=== PATIENT | male | born 1955 | race Caucasian/White ===

== ENCOUNTER 2017-12-18 16:14 | Outpatient (CLI) | payer OTHER ==
--- NOTE | 2017-12-18 19:48 | MRI Report ---
EXAM: RIGHT KNEE MRI WITHOUT CONTRAST EXAM DATE: 12/18/2017 05:04 PM. CLINICAL HISTORY: Right knee pain. Medial joint line tenderness. 10 foot fall. COMPARISON: None. TECHNIQUE: Multiplanar, multisequence T1-weighted and fluid-sensitive sequences of the knee without c ontrast. Other: None. FINDINGS: Bones: There is moderate marrow edema affecting the anterior and medial aspect of the medial tibial c ondyle suggestive of a contusion. Articular Cartilage: There is moderate to severe thinning of the hyaline cartilage of the medial comp artment. There is mild lateral compartment cartilage thinning. There is mild thinning of the patellof emoral hyaline cartilage. Medial Meniscus: There is a full-thickness radial tear of the body of the medial meniscus with modera te medial extrusion. There is an oblique undersurface tear of the posterior horn. There is a horizont al tear of the anterior horn. Lateral Meniscus: The lateral meniscus is intact. Cruciate Ligaments: The anterior and posterior cruciate ligaments are intact. Collateral Ligaments: The medial collateral ligament has an undulating contour, with surrounding soft tissue edema, suggestive of a grade 1 sprain. The lateral collateral ligament appears normal. Tendons: The quadriceps and patellar tendon appear normal. The popliteus is intact. There is increase d T2 signal in the distal semimembranosus tendon suggestive of a partial thickness tear. Musculature: No edema or fatty atrophy. Other: There is a small joint effusion. No popliteal cyst. No loose bodies. The medial and lateral r etinacula are intact. The subcutaneous tissues and fat pads are unremarkable. IMPRESSION: 1. Radial tear of the body of the medial meniscus. Oblique undersurface tear of the posterior horn, a nd a horizontal tear of the anterior horn. Medial extrusion. 2. Grade 1 sprain of the medial collateral ligament. 3. Moderate medial compartment osteoarthritis. Marrow edema in the tibia may be secondary to a contus ion or be osteoarthritis. 4. Small joint effusion. 5. Partial thickness tear of the distal semimembranosus tendon. [facility] MUSCULOSKELET[facility] RADIOLOGY SECTION Referring Provider Line: [phone] SITE ID: [id number]
== END 2017-12-18 16:15 | disposition home or self-care (01) ==
LOC: DI 16:14
PROVIDERS: ATTEND Orthopaedic Surgery
DX: S83.241A Other tear of medial meniscus, current injury, right knee, initial encounter (principal); S83.411A Sprain of medial collateral ligament of right knee, initial encounter; M17.11 Unilateral primary osteoarthritis, right knee; M25.461 Effusion, right knee; S86.111A Strain of other muscle(s) and tendon(s) of posterior muscle group at lower leg level, right leg, initial encounter

== ENCOUNTER 2019-05-20 07:12 | Emergency (ER) | payer OTHER ==
[2019-05-20 07:20] VITALS: BP 141/78
--- NOTE | 2019-05-20 07:29 | ED Physician Documentation ---
PD HPI HEENT - Stated complaint Stated Complaint: EAR PX/STUFFY NOSE - Chief complaint Chief Complaint: Heent - History obtained from History obtained from: Patient - History of Present Illness Timing - onset: How many days ago (7) Timing - duration: Days (7) Timing - details: Gradual onset, Still present Pain level now: 7 Location: Right ear, Left ear, Sinuses, Nose. No: Throat Improves: Nothing Associated symptoms: Congestion. No: Fever, Rhinorrhea, Cough Recently seen: Not recently seen - Additional information Additional information: Is a 64-year-old man who presents with complaints for the past week he has had a stuffy nose, she is developing sinus pressure in the frontal region and a headache. He has bilateral ear pain that he rates it a 6-7 out of 10. No drainage from the ears. No sore throat. He is not blowing mucus out of his nose he says is just very stuffy. He has not been coughing and had no fever. Review of Systems Constitutional: denies: Fever Eyes: denies: Loss of vision Ears: denies: Ear pain Nose: reports: Congestion. denies: Rhinorrhea / runny nose Throat: denies: Sore throat Respiratory: denies: Dyspnea, Cough PD PAST MEDICAL HISTORY - Past Medical History Cardiovascular: Hypertension, High cholesterol Respiratory: None Endocrine/Autoimmune: None GI: GERD : None HEENT: None Psych: None Musculoskeletal: None Derm: None - Past Surgical History Past Surgical History: Yes General: Cholecystectomy - Present Medications Home Medications: Ambulatory Orders Medication Instructions Recorded Confirmed Gabapentin 300 mg PO DAILY 10/07/15 12/24/15 HYDROcod/ACETAM 5/325 [Vicodin 1 tab PO QID PRN 10/07/15 12/24/15 5/325] Lisinopril 10 mg PO DAILY 10/07/15 12/24/15 Methocarbamol [Robaxin] 500 mg PO DAILY 10/07/15 12/24/15 clonazePAM [Klonopin] 5 mg PO DAILY 10/07/15 12/24/15 Promethazine Supp [Phenergan Supp] 25 mg SC Q6H PRN #15 supp 12/23/15 12/24/15 Ondansetron Odt [Zofran] 4 mg TL Q6H PRN #10 tablet 12/24/15 Fluticasone [Flonase] 1 sprays EZRA BID #1 bottle 05/20/19 - Allergies Allergies/Adverse Reactions: Allergies Allergy/AdvReac Type Severity Reaction Status Date / Time Penicillins Allergy Rash Verified 05/20/19 07:19 erythromycin base AdvReac Nausea Verified 05/20/19 07:19 [From E-Mycin] - Social History Does the pt smoke?: No Smoking Status: Never smoker Does the pt drink ETOH?: No Does the pt have substance abuse?: No - Immunizations Immunizations are current?: Yes - POLST Patient has POLST: No PD ED PE NORMAL - Vitals Vital signs reviewed: Yes - General General: Alert and oriented X 3, No acute distress, Well developed/nourished - HEENT HEENT: Atraumatic, PERRL, EOMI, Ears normal (There is some white serous fluid with air bubbles behind the TMs bilaterally. No erythema or dullness and landmarks are identified.), Moist mucous membranes, Pharynx benign - Neck Neck: No adenopathy, Thyroid normal - Cardiac Cardiac: RRR, No murmur - Respiratory Respiratory: No respiratory distress, Clear bilaterally Results - Vitals Vitals: Vital Signs - 24 hr 05/20/19 07:18 Temperature 36.4 C L Heart Rate 63 Respiratory 14 Rate Blood Pressure 141/78 H O2 Saturation 97 Oxygen O2 Source Room air PD MEDICAL DECISION MAKING - ED course Complexity details: d/w patient (No indication for antibiotics. Most viruses over the last 10 to 14 days and this was discussed with him. Symptomatic treatment including Flonase nasal spray, Afrin for 2 days, Sudafed purchased through the pharmacy, steam, ibuprofen and consideration for sinus rinses. Follow-up if not improving in another week or he develops a fever) Departure - Departure Disposition: 01 Home, Self Care Clinical Impression: URI (upper respiratory infection) Qualifiers: URI type: unspecified viral URI Qualified Code(s): J06.9 - Acute upper respiratory infection, unspecified Condition: Good Instructions: ED Upper Resp Infec No Abx Tx [facility]] Prescriptions: Fluticasone [Flonase] 1 sprays EZRA BID #1 bottle Comments: Use Afrin nasal spray for the next 24 hours twice a day. Also start Flonase nasal spray 2 sprays in each nostril daily. Would recommend considering doing a sinus rinse or at least some steam to help open up the sinuses so things can drain. Ibuprofen as an anti-inflammatory and Sudafed can be purchased through the pharmacist but you have to sign for it. We will have to go to the counter if you want to take Sudafed. Make sure you are drinking lots of liquids. Follow-up if not improving in another week or if you develop a fever.
== END 2019-05-20 07:47 | disposition home or self-care (01) ==
LOC: ED 07:12
DX: J06.9 Acute upper respiratory infection, unspecified (principal); I10 Essential (primary) hypertension
CPT/HCPCS: 99282; 99284

== ENCOUNTER 2021-04-27 16:52 | Emergency (ER) | payer MEDICARE, OTHER ==
[2021-04-27 17:00] VITALS: BP 140/94
[2021-04-27] MEDS ORDERED: BUFFERED LIDOCAINE 10 ML SYRINGE SUBQ STA (17:09)
--- NOTE | 2021-04-27 17:32 | ED Physician Documentation ---
PD HPI UPPER EXT INJURY - Stated complaint Stated Complaint: RT FINGER LAC - Chief complaint Chief Complaint: Laceration - History obtained from History obtained from: Patient - History of Present Illness Location: Right, Finger (index) Type of injury: Laceration Where injury occurred: Home Timing - onset: Today Timing - duration: Hours Timing - details: Abrupt onset, Still present Improved by: Rest, Immobilization Worsened by: Moving, Palpating Associated symptoms: No: Weakness, Numbness, Tingling, Swelling, Discolored Contributing factors: No: Anticoagulated Similar symptoms before: Diagnosis (laceration) Recently seen: Not recently seen - Additonal information Additional information: Previously well right handed 66-year-old male was working on his van removing the cover from the back seat when he ran his finger under the line and he lacerated the volar surface of his index finger. He has been able to control bleeding with direct pressure he has no functional deficit and he is now presenting to the emergency department for suturing. Review of Systems Constitutional: denies: Fever Respiratory: denies: Cough GI: denies: Vomiting Skin: reports: Laceration (s) PD PAST MEDICAL HISTORY - Past Medical History Cardiovascular: Hypertension, High cholesterol Respiratory: None Endocrine/Autoimmune: None GI: GERD : None HEENT: None Psych: None Musculoskeletal: None Derm: None - Past Surgical History Past Surgical History: Yes General: Cholecystectomy - Present Medications Home Medications: Ambulatory Orders Medication Instructions Recorded Confirmed Gabapentin 300 mg PO DAILY 10/07/15 12/24/15 HYDROcod/ACETAM 5/325 [Vicodin 1 tab PO QID PRN 10/07/15 12/24/15 5/325] clonazePAM [Klonopin] 5 mg PO DAILY 10/07/15 12/24/15 lisinopriL [Lisinopril] 10 mg PO DAILY 10/07/15 12/24/15 methocarbamoL [Robaxin] 500 mg PO DAILY 10/07/15 12/24/15 Promethazine Supp [Phenergan Supp] 25 mg [place] Q6H PRN #15 supp 12/23/15 12/24/15 Ondansetron Odt [Zofran] 4 mg TL Q6H PRN #10 tablet 12/24/15 Fluticasone [Flonase] 1 sprays EZRA BID #1 bottle 05/20/19 - Allergies Allergies/Adverse Reactions: Allergies Allergy/AdvReac Type Severity Reaction Status Date / Time Penicillins Allergy Rash Verified 04/27/21 17:00 erythromycin base AdvReac Nausea Verified 04/27/21 17:00 [From E-Mycin] - Social History Does the pt smoke?: No Smoking Status: Never smoker Does the pt drink ETOH?: No Does the pt have substance abuse?: No - Immunizations Immunizations are current?: Yes - POLST Patient has POLST: No PD ED PE NORMAL - Vitals Vital signs reviewed: Yes (hypertensive ) - General General: Alert and oriented X 3, No acute distress, Well developed/nourished - HEENT HEENT: Atraumatic, PERRL, EOMI - Respiratory Respiratory: No respiratory distress - Derm Derm: Normal color, Warm and dry, No rash - Extremities Extremities: No deformity, No edema, Other (over the volar surface of the PIP joint of the right index finger there is a 2.5cm laceration that does not involve deeper structures. 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, No motor deficit, No sensory deficit, Normal speech Eye Opening: Spontaneous Motor: Obeys Commands Verbal: Oriented GCS Score: 15 - Psych Psych: Normal mood, Normal affect Results - Vitals Vitals: Vital Signs - 24 hr 04/27/21 16:54 Temperature 36.6 C Heart Rate 88 Respiratory 16 Rate Blood Pressure 140/94 H O2 Saturation 99 Oxygen O2 Source Room air Procedures - Laceration (location) right index Wound type: Curved, Flap, Into subcut fat Neurovascular status: Sensory intact, Motor intact, Vascular intact Tendon involvement: Tendon intact Anesthesia: Lidocaine 1%, With bicarb Wound preparation: Hibiclens, Irrigated copiously NS, Wound explored, To the base Skin layer closure: Nylon, Interrupted, Size #-0 - enter number ([id number]) Other: Patient tolerated well, No complications, Neurovascular intact, Dressing applied, Tetanus booster given PD MEDICAL DECISION MAKING - ED course Complexity details: considered differential, d/w patient ED course: 66-year-old male with a laceration to the volar surface of the index finger has sutures placed tolerates this well. He is updated on his tetanus. Departure - Departure Disposition: 01 Home, Self Care Clinical Impression: Laceration of index finger Qualifiers: Encounter type: initial encounter Damage to nail status: without damage Foreign body presence: without foreign body Laterality: right Qualified Code(s): S61.210A - Laceration without foreign body of right index finger without damage to nail, initial encounter Condition: Stable Instructions: ED Laceration Hand Follow-Up: Dustin Barrientos MD [Primary Care Provider] - Comments: Sutures should be removed in 7 to 10 days. Discharge Date/Time: 04/27/21 18:05
[2021-04-27] MEDS ORDERED: TETANUS/DIPHTHERIA/PERTUSSIS 0.5 ML SYRINGE IM ONE (17:33)
== END 2021-04-27 18:05 | disposition home or self-care (01) ==
LOC: ED 16:52
DX: S61.210A Laceration without foreign body of right index finger without damage to nail, initial encounter (principal); W26.8XXA Contact with other sharp object(s), not elsewhere classified, initial encounter; Y93.89 Activity, other specified; Y92.008 Other place in unspecified non-institutional (private) residence as the place of occurrence of the external cause; Z23 Encounter for immunization; I10 Essential (primary) hypertension
CPT/HCPCS: 12001; 90471; 99283

== ENCOUNTER 2021-09-21 09:42 | Outpatient (CLI) | payer MEDICARE, OTHER ==
--- NOTE | 2021-09-21 14:36 | XRAY Report ---
PROCEDURE: Knee 2 View LT INDICATIONS: L KNEE PX TECHNIQUE: 2 views of the left knee(s) were acquired. COMPARISON: None. FINDINGS: Bones: No fractures or dislocations. No suspicious bony lesions. Tricompartmental arthritic narrow ing is present. Patellar spur is present. Soft tissues: Minimal joint effusion. No suspicious soft tissue calcifications. IMPRESSION: No visualized acute fracture or dislocation. However, occult injury cannot be excluded. Recommend short interval imaging follow-up in 7-10 days as clinically indicated for additional evalua tion. Reviewed by: Mari Martinez MD on 09/21/2021 2:35 PM PDT Approved by: Mari Martinez MD on 09/21/2021 2:35 PM PDT Station ID: [id number]
== END 2021-09-21 23:59 | disposition home or self-care (01) ==
LOC: DI.N 09:42
PROVIDERS: ATTEND Family Medicine
DX: M25.562 Pain in left knee (principal)

== ENCOUNTER 2022-08-03 05:01 | Emergency (ER) | payer MEDICARE, OTHER ==
--- OUTSIDE RECORDS SUMMARY | 2022-08-03 05:19 | EXTERNAL MEDICAL SUMMARY RPT | Continuity of Care Document ---
:1955 Author Organization [facility] Address [address] [place] [address] Phone Care Team Providers Name Role Phone Unavailable Unavailable Unavailable Dustin Barrientos Unavailable Unavailable Karla Spotter EnpJaimie Unavailable Unavailable NurseJennifer Unavailable Unavailable Allergies No information. Encounters No information. Functional Status No information. Immunizations No information. Medications date description facility 2022-06-17 00:00 hydrocodone-acetaminophen All 2022-06-20 00:00 hydrocodone-acetaminophen All 2022-06-17 00:00 acyclovir All 2022-06-17 00:00 acyclovir All 2022-06-17 00:00 acyclovir All 2022-06-17 00:00 acyclovir All 2022-05-13 00:00 [facility] 2022-06-17 00:00 acyclovir All 2022-06-17 00:00 acyclovir All 2022-06-19 00:00 [facility] 2022-06-17 00:00 gabapentin All 2022-06-20 00:00 gabapentin All 2022-06-17 00:00 gabapentin All 2022-06-20 00:00 gabapentin All 2022-06-17 00:00 gabapentin All 2022-06-20 00:00 gabapentin All 2022-06-17 00:00 acyclovir All 2022-06-17 00:00 acyclovir All 2022-06-17 00:00 hydrocodone-acetaminophen All 2022-06-20 00:00 hydrocodone-acetaminophen All 2022-06-17 00:00 gabapentin All 2022-06-20 00:00 gabapentin All 2022-06-17 00:00 hydrocodone-acetaminophen All 2022-06-20 00:00 hydrocodone-acetaminophen All 2022-06-17 00:00 hydrocodone-acetaminophen All 2022-06-20 00:00 hydrocodone-acetaminophen All Problems date description facility 2022-06-17 00:00 Herpes simplex without mention of compl ication All 2022-06-17 00:00 Herpes simplex without mention of compl ication All 2022-06-17 00:00 Oral herpes simplex infection All 2022-06-17 00:00 Oral herpes simplex infection All 2022-06-17 00:00 Other herpesviral infection All 2022-06-17 00:00 Other herpesviral infection All 2022-06-19 13:05 Recurrent [facility] 2022-06-20 00:16 [facility] Procedures date description facility 2022-06-17 00:00 Visit Code Hold All 2022-06-17 00:00 Visit Code Hold All Results/Labs test date author facility value unit interpret ation Result panel 1 (unknown) (no date) (unknown) [facility] (no value) (units ([facility]own[facility] unknown) Result panel 2 (unknown) (no date) (unknown) (unknown) 1.12 ng/ml (unkn own) Result panel 3 (unknown) (no (unknown) (unknown) (no value) (units (unk nown) date) unknown) (unknown) (no (unknown) (unknown) 06/19/22 (units (unkno wn) date) unknown) (unknown) (no (unknown) (unknown) [id number] (units (unkno wn) date) unknown) (unknown) (no (unknown) (unknown) 227 (units (unkno wn) date) unknown) (unknown) (no (unknown) (unknown) Age/Sex: 67 / M (units (unknown) date) Date of Service: unknown) (unknown) (no (unknown) (unknown) Allergies (units (unkn own) date) unknown) (unknown) (no (unknown) (unknown) [facility] (units (unknown) date) Medicine unknown) (unknown) (no (unknown) (unknown) [place] (units ( unknown) date) [id number] unknown) (unknown) (no (unknown) (unknown) Anesthesia (units (unk nown) date) unknown) (unknown) (no (unknown) (unknown) Attending Dr: (units ( unknown) date) Lela Tam unknown) PHumphreyAAnmol (unknown) (no (unknown) (unknown) Brother (units (unknown) date) Cancer unknown) (unknown) (no (unknown) (unknown) Bunion of left (units (unknown) date) foot unknown) (unknown) (no (unknown) (unknown) Chicken pox (units (un known) date) unknown) (unknown) (no (unknown) (unknown) Chronic back pain (units (unknown) date) unknown) (unknown) (no (unknown) (unknown) Chronic knee pain (units (unknown) date) unknown) (unknown) (no (unknown) (unknown) Closed head (units (un known) date) injury unknown) (unknown) (no (unknown) (unknown) : 1955 (units (unknown) date) Acct:[id number] unknown) (unknown) (no (unknown) (unknown) Dept at (units (unkno wn) date) . unknown) (unknown) (no (unknown) (unknown) Documented By: (units (unknown) date) Lela Tam unknown) Robyn 06/19/22 1 (unknown) (no (unknown) (unknown) Draft (units (unkno wn) date) unknown) (unknown) (no (unknown) (unknown) Family History (units (unknown) date) (Reviewed 09/20/21 unknown) @ 08:05 by Lesia Payne DO) (unknown) (no (unknown) (unknown) Family Practice (units (unknown) date) Office Visit unknown) (unknown) (no (unknown) (unknown) Father History of (units (unknown) date) heart disease unknown) (unknown) (no (unknown) (unknown) Fractures (units (unkn own) date) unknown) (unknown) (no (unknown) (unknown) HTN (units (unkno wn) date) (hypertension) unknown) (unknown) (no (unknown) (unknown) Hearing loss (units (u nknown) date) unknown) (unknown) (no (unknown) (unknown) History of (units (unk nown) date) mandibular surgery unknown) (-1974) (unknown) (no (unknown) (unknown) Hx of (units (unkno wn) date) cholecystectomy unknown) (unknown) (no (unknown) (unknown) Hyperlipidemia (units (unknown) date) unknown) (unknown) (no (unknown) (unknown) Intake Note: (units (u nknown) date) unknown) (unknown) (no (unknown) (unknown) Intake performed (units (unknown) date) by: Efrain Herbert unknown) (unknown) (no (unknown) (unknown) Intake (units (unkno wn) date) unknown) (unknown) (no (unknown) (unknown) Intake- Clincial (units (unknown) date) Staff unknown) (unknown) (no (unknown) (unknown) Loc: [facility] (units (unkno wn) date) unknown) (unknown) (no (unknown) (unknown) Medical History (units (unknown) date) (Updated 10/05/21 unknown) @ 00:00 by ) (unknown) (no (unknown) (unknown) PFSH (units (unkno wn) date) unknown) (unknown) (no (unknown) (unknown) Patient: (units (unkno wn) date) Nikia Pablo Kiesha unknown) MR#: [id number] (unknown) (no (unknown) (unknown) Penicillins (units (un known) date) [PENICILLINS] unknown) Allergy (Unknown, Verified 09/28/21 15:22) (unknown) (no (unknown) (unknown) Pt presents with (units (unknown) date) a mouth full of unknown) canker sores for a week and a half. Has had (unknown) (no (unknown) (unknown) Reason For Visit (units (unknown) date) unknown) (unknown) (no (unknown) (unknown) Shoulder pain (units ( unknown) date) unknown) (unknown) (no (unknown) (unknown) Signed By: (units (unk nown) date) unknown) (unknown) (no (unknown) (unknown) Smoking Status: (units (unknown) date) Never smoker unknown) (unknown) (no (unknown) (unknown) Surgical History (units (unknown) date) (Reviewed 09/20/21 unknown) @ 08:05 by Lesia Payne DO) (unknown) (no (unknown) (unknown) This note may (units ( unknown) date) have been all or unknown) partially generated using voice recognition (unknown) (no (unknown) (unknown) Tinnitus (units (unkno wn) date) unknown) (unknown) (no (unknown) (unknown) Tobacco + (units (unkn own) date) Substance Use unknown) (unknown) (no (unknown) (unknown) Tobacco Status (units (unknown) date) unknown) (unknown) (no (unknown) (unknown) Unknown (units (unkno wn) date) unknown) (unknown) (no (unknown) (unknown) Visit Reasons: (units (unknown) date) Mouth full of unknown) canker sores (unknown) (no (unknown) (unknown) erythromycin base (units (unknown) date) Allergy (Verified unknown) 09/28/21 15:22) (unknown) (no (unknown) (unknown) have occurred. If (units (unknown) date) there are any unknown) questions, please contact the Medical Records (unknown) (no (unknown) (unknown) may occur. (units (unk nown) date) Occasional unknown) wrong-word or 'sound-alike' substitutions may have (unknown) (no (unknown) (unknown) occurred due to (units (unknown) date) the inherent unknown) limitations of voice recognition software. Please (unknown) (no (unknown) (unknown) read the note (units ( unknown) date) carefully and unknown) recognize, using context, where these substitutions (unknown) (no (unknown) (unknown) software. 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, certified adapted physical educator errors (unknown) (no (unknown) (unknown) them before but (units (unknown) date) not this bad. unknown) Result panel 4 (unknown) (no (unknown) (unknown) (no value) (units (unk nown) date) unknown) (unknown) (no (unknown) (unknown) 06/19/22 (units (unkno wn) date) unknown) (unknown) (no (unknown) (unknown) 06/19/22] (units (unkn own) date) unknown) (unknown) (no (unknown) (unknown) 12:29 (units (unkno wn) date) unknown) (unknown) (no (unknown) (unknown) [id number] (units (unkno wn) date) unknown) (unknown) (no (unknown) (unknown) 227 (units (unkno wn) date) unknown) (unknown) (no (unknown) (unknown) Age/Sex: 67 / M (units (unknown) date) Date of Service: unknown) (unknown) (no (unknown) (unknown) Allergies (units (unkn own) date) unknown) (unknown) (no (unknown) (unknown) [facility] (units (unknown) date) Medicine unknown) (unknown) (no (unknown) (unknown) [place] (units ( unknown) date) [id number] unknown) (unknown) (no (unknown) (unknown) Anesthesia (units (unk nown) date) unknown) (unknown) (no (unknown) (unknown) Attending Dr: (units ( unknown) date) Lela Tam unknown) Robyn (unknown) (no (unknown) (unknown) BMI 27.1 (units (unkno wn) date) unknown) (unknown) (no (unknown) (unknown) BP 122/74 (units (unkn own) date) unknown) (unknown) (no (unknown) (unknown) Blood Pressure (units (unknown) date) Location Lt unknown) brachial (unknown) (no (unknown) (unknown) Brother (units (unknown) date) Cancer unknown) (unknown) (no (unknown) (unknown) Bunion of left (units (unknown) date) foot unknown) (unknown) (no (unknown) (unknown) Chicken pox (units (un known) date) unknown) (unknown) (no (unknown) (unknown) Chronic back pain (units (unknown) date) unknown) (unknown) (no (unknown) (unknown) Chronic knee pain (units (unknown) date) unknown) (unknown) (no (unknown) (unknown) Closed head (units (un known) date) injury unknown) (unknown) (no (unknown) (unknown) Confirmed (units (unkn own) date) 06/19/22] unknown) (unknown) (no (unknown) (unknown) : 1955 (units (unknown) date) Acct:[id number] unknown) (unknown) (no (unknown) (unknown) Dept at (units (unkno wn) date) . unknown) (unknown) (no (unknown) (unknown) Documented By: (units (unknown) date) Lela Tam unknown) Robyn 06/19/22 1 (unknown) (no (unknown) (unknown) Draft (units (unkno wn) date) unknown) (unknown) (no (unknown) (unknown) Family History (units (unknown) date) (Reviewed 09/20/21 unknown) @ 08:05 by Lesia Payne DO) (unknown) (no (unknown) (unknown) Family Practice (units (unknown) date) Office Visit unknown) (unknown) (no (unknown) (unknown) Father History of (units (unknown) date) heart disease unknown) (unknown) (no (unknown) (unknown) Fractures (units (unkn own) date) unknown) (unknown) (no (unknown) (unknown) HTN (units (unkno wn) date) (hypertension) unknown) (unknown) (no (unknown) (unknown) Hearing loss (units (u nknown) date) unknown) (unknown) (no (unknown) (unknown) Height 6 ft (units (un known) date) unknown) (unknown) (no (unknown) (unknown) History of (units (unk nown) date) mandibular surgery unknown) () (unknown) (no (unknown) (unknown) Hx of (units (unkno wn) date) cholecystectomy unknown) (unknown) (no (unknown) (unknown) Hyperlipidemia (units (unknown) date) unknown) (unknown) (no (unknown) (unknown) Intake Note: (units (u nknown) date) unknown) (unknown) (no (unknown) (unknown) Intake performed (units (unknown) date) by: Efrain Herbert unknown) (unknown) (no (unknown) (unknown) Intake (units (unkno wn) date) unknown) (unknown) (no (unknown) (unknown) Intake- Clincial (units (unknown) date) Staff unknown) (unknown) (no (unknown) (unknown) Loc: [facility] (units (unkno wn) date) unknown) (unknown) (no (unknown) (unknown) Medical History (units (unknown) date) (Updated 10/05/21 unknown) @ 00:00 by ) (unknown) (no (unknown) (unknown) Medications (units (un known) date) unknown) (unknown) (no (unknown) (unknown) Oxygen Delivery (units (unknown) date) Method room air unknown) (unknown) (no (unknown) (unknown) PFSH (units (unkno wn) date) unknown) (unknown) (no (unknown) (unknown) Patient: (units (unkno wn) date) Nikia Pablo unknown) MR#: [id number] (unknown) (no (unknown) (unknown) Penicillins (units (un known) date) [PENICILLINS] unknown) Allergy (Unknown, Verified 06/19/22 12:29) (unknown) (no (unknown) (unknown) Position Sitting (units (unknown) date) unknown) (unknown) (no (unknown) (unknown) Pt presents with (units (unknown) date) a mouth full of unknown) canker sores for a week and a half. Has had (unknown) (no (unknown) (unknown) Pulse 56 L (units (unk nown) date) unknown) (unknown) (no (unknown) (unknown) Pulse Oximetry (units (unknown) date) (%) 99 unknown) (unknown) (no (unknown) (unknown) Pulse Source (units (u nknown) date) Monitor unknown) (unknown) (no (unknown) (unknown) Reason For Visit (units (unknown) date) unknown) (unknown) (no (unknown) (unknown) Respiration 14 (units (unknown) date) unknown) (unknown) (no (unknown) (unknown) Shoulder pain (units ( unknown) date) unknown) (unknown) (no (unknown) (unknown) Signed By: (units (unk nown) date) unknown) (unknown) (no (unknown) (unknown) Smoking Status: (units (unknown) date) Never smoker unknown) (unknown) (no (unknown) (unknown) Surgical History (units (unknown) date) (Reviewed 09/20/21 unknown) @ 08:05 by Lesia Payne DO) (unknown) (no (unknown) (unknown) Temp 97.6 F (units (un known) date) unknown) (unknown) (no (unknown) (unknown) Temp Source Skin (units (unknown) date) unknown) (unknown) (no (unknown) (unknown) This note may (units ( unknown) date) have been all or unknown) partially generated using voice recognition (unknown) (no (unknown) (unknown) Tinnitus (units (unkno wn) date) unknown) (unknown) (no (unknown) (unknown) Tobacco + (units (unkn own) date) Substance Use unknown) (unknown) (no (unknown) (unknown) Tobacco Status (units (unknown) date) unknown) (unknown) (no (unknown) (unknown) Unknown (units (unkno wn) date) unknown) (unknown) (no (unknown) (unknown) Visit Reasons: (units (unknown) date) Mouth full of unknown) canker sores (unknown) (no (unknown) (unknown) Vitals (units (unkno wn) date) unknown) (unknown) (no (unknown) (unknown) Weight 200 lb (units ( unknown) date) unknown) (unknown) (no (unknown) (unknown) acyclovir. States (units (unknown) date) it only made it unknown) worse. (unknown) (no (unknown) (unknown) atorvastatin 10 (units (unknown) date) mg tablet 10 mg PO unknown) DAILY #90 tabs 09/01/20 [Rx Confirmed (unknown) (no (unknown) (unknown) celecoxib 200 mg (units (unknown) date) capsule 200 mg PO unknown) DAILY #30 caps 05/13/22 [Rx Confirmed (unknown) (no (unknown) (unknown) erythromycin base (units (unknown) date) Allergy (Verified unknown) 06/19/22 12:29) (unknown) (no (unknown) (unknown) gabapentin 300 mg (units (unknown) date) capsule 300 mg PO unknown) BEDTIME #90 caps 12/20/21 [Rx Confirmed (unknown) (no (unknown) (unknown) have occurred. If (units (unknown) date) there are any unknown) questions, please contact the Medical Records (unknown) (no (unknown) (unknown) lisinopril 10 mg (units (unknown) date) tablet 10 mg PO unknown) DAILY #90 tabs 08/01/20 [Rx Confirmed 06/19/22] (unknown) (no (unknown) (unknown) loperamide 2 mg (units (unknown) date) tablet 2 mg PO QID unknown) PRN 05/15/20 [History Confirmed 06/19/22] (unknown) (no (unknown) (unknown) may occur. (units (unk nown) date) Occasional unknown) wrong-word or 'sound-alike' substitutions may have (unknown) (no (unknown) (unknown) occurred due to (units (unknown) date) the inherent unknown) limitations of voice recognition software. Please (unknown) (no (unknown) (unknown) omeprazole 20 mg (units (unknown) date) capsule,delayed unknown) release 20 mg PO DAILY #90 caps 08/01/20 [Rx (unknown) (no (unknown) (unknown) read the note (units ( unknown) date) carefully and unknown) recognize, using context, where these substitutions (unknown) (no (unknown) (unknown) software. 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, certified adapted physical educator errors (unknown) (no (unknown) (unknown) them before but (units (unknown) date) not this bad. Was unknown) seen at the [facility] in and given Result panel 5 (unknown) (no date) (unknown) (unknown) (no value) (units (un known) unknown) (unknown) (no date) (unknown) (unknown) (no value) (units 646 3-4 unknown) (unknown) (no date) (unknown) (unknown) (no value) (units (un known) unknown) (unknown) (no date) (unknown) (unknown) (no value) (units (un known) unknown) (unknown) (no date) (unknown) (unknown) (no value) (units (un known) unknown) (unknown) (no date) (unknown) (unknown) Final (units (unkn own) report unknown) (unknown) (no date) (unknown) (unknown) Final (units 85611 -5 report unknown) (unknown) (no date) (unknown) (unknown) Final (units 664-3 report unknown) (unknown) (no date) (unknown) (unknown) No virus (units (unkn own) isolated. unknown) (unknown) (no date) (unknown) (unknown) No virus (units 6584- 7 isolated. unknown) Result panel 6 (unknown) (no (unknown) (unknown) (no value) (units (unk nown) date) unknown) (unknown) (no (unknown) (unknown) (1) Aphthae, (units (u nknown) date) oral: unknown) (unknown) (no (unknown) (unknown) (2) Lesion of (units ( unknown) date) lip: unknown) (unknown) (no (unknown) (unknown) 0RF pain (units (unkno wn) date) unknown) (unknown) (no (unknown) (unknown) 06/19/22 1314 (units ( unknown) date) unknown) (unknown) (no (unknown) (unknown) 06/19/22 (units (unkno wn) date) unknown) (unknown) (no (unknown) (unknown) 06/19/22] (units (unkn own) date) unknown) (unknown) (no (unknown) (unknown) 12:29 (units (unkno wn) date) unknown) (unknown) (no (unknown) (unknown) [id number] (units (unkno wn) date) unknown) (unknown) (no (unknown) (unknown) 227 (units (unkno wn) date) unknown) (unknown) (no (unknown) (unknown) 3 sores present (units (unknown) date) 3-5mm in diameter unknown) that are very tender to touch with a whitish (unknown) (no (unknown) (unknown) 5 days with (units (un known) date) limited effect. unknown) Viral and bacterial culture today for further (unknown) (no (unknown) (unknown) 67-year-old male (units (unknown) date) presents with unknown) concern for canker sores that have been present (unknown) (no (unknown) (unknown) 67-year-old male (units (unknown) date) presents with unknown) concern for lip and tongue lesions 1 on the (unknown) (no (unknown) (unknown) ?they have never (units (unknown) date) been this bad?. unknown) Was seen at urgent care already and prescribed (unknown) (no (unknown) (unknown) Age/Sex: 67 / M (units (unknown) date) Date of Service: unknown) (unknown) (no (unknown) (unknown) All systems (units (un known) date) reviewed + are unknown) unremarkable except as noted in HPI and below (unknown) (no (unknown) (unknown) Allergies (units (unkn own) date) unknown) (unknown) (no (unknown) (unknown) [facility] (units (unknown) date) Medicine unknown) (unknown) (no (unknown) (unknown) [place], [place] (units ( unknown) date) [id number] unknown) (unknown) (no (unknown) (unknown) Anesthesia (units (unk nown) date) unknown) (unknown) (no (unknown) (unknown) Assessment + Plan (units (unknown) date) unknown) (unknown) (no (unknown) (unknown) Attending Dr: (units ( unknown) date) Lela Tam unknown) P.A-C (unknown) (no (unknown) (unknown) BMI 27.1 (units (unkno wn) date) unknown) (unknown) (no (unknown) (unknown) BP 122/74 (units (unkn own) date) unknown) (unknown) (no (unknown) (unknown) Blood Pressure (units (unknown) date) Location Lt unknown) brachial (unknown) (no (unknown) (unknown) Brother (units (unknown) date) Cancer unknown) (unknown) (no (unknown) (unknown) Bunion of left (units (unknown) date) foot unknown) (unknown) (no (unknown) (unknown) CARDIOVASCULAR: (units (unknown) date) Regular rate and unknown) rhythm without murmurs, gallops, or rubs. (unknown) (no (unknown) (unknown) Chicken pox (units (un known) date) unknown) (unknown) (no (unknown) (unknown) Chief Complaint (units (unknown) date) unknown) (unknown) (no (unknown) (unknown) Chief Complaint: (units (unknown) date) Canker sores unknown) (unknown) (no (unknown) (unknown) Chronic back pain (units (unknown) date) unknown) (unknown) (no (unknown) (unknown) Chronic knee pain (units (unknown) date) unknown) (unknown) (no (unknown) (unknown) Closed head (units (un known) date) injury unknown) (unknown) (no (unknown) (unknown) Confirmed (units (unkn own) date) 06/19/22] unknown) (unknown) (no (unknown) (unknown) Const (units (unkno wn) date) unknown) (unknown) (no (unknown) (unknown) : 1955 (units (unknown) date) Acct:[id number] unknown) (unknown) (no (unknown) (unknown) Dept at (units (unkno wn) date) . unknown) (unknown) (no (unknown) (unknown) Details: (units (unkno wn) date) unknown) (unknown) (no (unknown) (unknown) Documented By: (units (unknown) date) Lela Tam unknown) Robyn 06/19/22 1 (unknown) (no (unknown) (unknown) ENT: Nose without (units (unknown) date) bleeding, purulent unknown) drainage. The upper and lower lips have 2 (unknown) (no (unknown) (unknown) EXTREMITIES: No (units (unknown) date) edema or joint unknown) tenderness. (unknown) (no (unknown) (unknown) EYES: Pupils (units (u nknown) date) equal round and unknown) reactive. Extraocular motions intact. No scleral (unknown) (no (unknown) (unknown) Exam Narrative (units (unknown) date) unknown) (unknown) (no (unknown) (unknown) Exam Narrative: (units (unknown) date) unknown) (unknown) (no (unknown) (unknown) Exam (units (unkno wn) date) unknown) (unknown) (no (unknown) (unknown) Family History (units (unknown) date) (Reviewed 06/19/22 unknown) @ 13:08 by Lela Tam PA-C) (unknown) (no (unknown) (unknown) Family Practice (units (unknown) date) Office Visit unknown) (unknown) (no (unknown) (unknown) Father History of (units (unknown) date) heart disease unknown) (unknown) (no (unknown) (unknown) Fractures (units (unkn own) date) unknown) (unknown) (no (unknown) (unknown) GENERAL: 67 year (units (unknown) date) old patient unknown) appears stated age. Well-developed patient, in mild (unknown) (no (unknown) (unknown) HEAD: Atraumatic. (units (unknown) date) Normocephalic. unknown) (unknown) (no (unknown) (unknown) HPI (units (unkno wn) date) unknown) (unknown) (no (unknown) (unknown) HTN (units (unkno wn) date) (hypertension) unknown) (unknown) (no (unknown) (unknown) Hearing loss (units (u nknown) date) unknown) (unknown) (no (unknown) (unknown) Height 182.88 cm (units (unknown) date) unknown) (unknown) (no (unknown) (unknown) History of (units (unk nown) date) aphthous ulcers unknown) however this is ?worse than ever?. On acyclovir for (unknown) (no (unknown) (unknown) History of (units (unk nown) date) mandibular surgery unknown) (-1974) (unknown) (no (unknown) (unknown) Hx of (units (unkno wn) date) cholecystectomy unknown) (unknown) (no (unknown) (unknown) Hyperlipidemia (units (unknown) date) unknown) (unknown) (no (unknown) (unknown) Intake Note: (units (u nknown) date) unknown) (unknown) (no (unknown) (unknown) Intake performed (units (unknown) date) by: Efrain Herbert unknown) (unknown) (no (unknown) (unknown) Intake (units (unkno wn) date) unknown) (unknown) (no (unknown) (unknown) Intake- Clincial (units (unknown) date) Staff unknown) (unknown) (no (unknown) (unknown) Loc: [facility] (units (unkno wn) date) unknown) (unknown) (no (unknown) (unknown) Medical History (units (unknown) date) (Reviewed 06/19/22 unknown) @ 13:08 by Lela Tam PA-C) (unknown) (no (unknown) (unknown) Medications (units (un known) date) unknown) (unknown) (no (unknown) (unknown) Medications: (units (u nknown) date) unknown) (unknown) (no (unknown) (unknown) NECK: Trachea (units ( unknown) date) midline. Non unknown) tender (unknown) (no (unknown) (unknown) NEURO: AOx3. (units (u nknown) date) unknown) (unknown) (no (unknown) (unknown) New (units (unkno wn) date) unknown) (unknown) (no (unknown) (unknown) Onset: 06/09/22 (units (unknown) date) unknown) (unknown) (no (unknown) (unknown) Orders (units (unkno wn) date) unknown) (unknown) (no (unknown) (unknown) Orders: (units (unkno wn) date) unknown) (unknown) (no (unknown) (unknown) Otherwise the (units ( unknown) date) oropharynx and unknown) posterior oropharynx are without ulcers, or (unknown) (no (unknown) (unknown) Oxygen Delivery (units (unknown) date) Method room air unknown) (unknown) (no (unknown) (unknown) PFSH (units (unkno wn) date) unknown) (unknown) (no (unknown) (unknown) Patient: (units (unkno wn) date) Nikia Pablo D unknown) MR#: [id number] (unknown) (no (unknown) (unknown) Penicillins (units (un known) date) [PENICILLINS] unknown) Allergy (Unknown, Verified 06/19/22 12:29) (unknown) (no (unknown) (unknown) Plan (units (unkno wn) date) unknown) (unknown) (no (unknown) (unknown) Position Sitting (units (unknown) date) unknown) (unknown) (no (unknown) (unknown) Pt presents with (units (unknown) date) a mouth full of unknown) canker sores for a week and a half. Has had (unknown) (no (unknown) (unknown) Pulse 56 L (units (unk nown) date) unknown) (unknown) (no (unknown) (unknown) Pulse Oximetry (units (unknown) date) (%) 99 unknown) (unknown) (no (unknown) (unknown) Pulse Source (units (u nknown) date) Monitor unknown) (unknown) (no (unknown) (unknown) RESPIRATORY: Clear (units (unknown) date) to auscultation. unknown) Breath sounds equal bilaterally. No wheezes, (unknown) (no (unknown) (unknown) ROS (units (unkno wn) date) unknown) (unknown) (no (unknown) (unknown) Reason For Visit (units (unknown) date) unknown) (unknown) (no (unknown) (unknown) Respiration 14 (units (unknown) date) unknown) (unknown) (no (unknown) (unknown) SKIN: No rash or (units (unknown) date) erythema of unknown) visible areas (unknown) (no (unknown) (unknown) Shoulder pain (units ( unknown) date) unknown) (unknown) (no (unknown) (unknown) Signed By: (units (unk nown) date) <Electronically unknown) signed by Lela Tam> (unknown) (no (unknown) (unknown) Signed (units (unkno wn) date) unknown) (unknown) (no (unknown) (unknown) Smoking Status: (units (unknown) date) Never smoker unknown) (unknown) (no (unknown) (unknown) Surgical History (units (unknown) date) (Reviewed 06/19/22 unknown) @ 13:08 by Lela Tam PA-C) (unknown) (no (unknown) (unknown) TID PRN pain #100 (units (unknown) date) mL 06/19/22 [Rx unknown) Confirmed 06/19/22] (unknown) (no (unknown) (unknown) Temp 97.6 F (units (un known) date) unknown) (unknown) (no (unknown) (unknown) Temp Source Skin (units (unknown) date) unknown) (unknown) (no (unknown) (unknown) This note may (units ( unknown) date) have been all or unknown) partially generated using voice recognition (unknown) (no (unknown) (unknown) Tinnitus (units (unkno wn) date) unknown) (unknown) (no (unknown) (unknown) Tobacco + (units (unkn own) date) Substance Use unknown) (unknown) (no (unknown) (unknown) Tobacco Status (units (unknown) date) unknown) (unknown) (no (unknown) (unknown) Unknown (units (unkno wn) date) unknown) (unknown) (no (unknown) (unknown) Viral Culture (units ( unknown) date) Today K12.0 - unknown) Recurrent oral aphthae (unknown) (no (unknown) (unknown) Visit Reasons: (units (unknown) date) Mouth full of unknown) canker sores (unknown) (no (unknown) (unknown) Vitals (units (unkno wn) date) unknown) (unknown) (no (unknown) (unknown) Weight 90.718 kg (units (unknown) date) unknown) (unknown) (no (unknown) (unknown) Wound Culture and (units (unknown) date) Gram Stain Today unknown) K12.0 - Recurrent oral aphthae (unknown) (no (unknown) (unknown) [Rx Confirmed (units ( unknown) date) 06/19/22] unknown) (unknown) (no (unknown) (unknown) acyclovir has (units ( unknown) date) thus far not been unknown) effective. Return precautions provided, follow (unknown) (no (unknown) (unknown) acyclovir which (units (unknown) date) he has been taking unknown) for about 4 days and he feels it has not (unknown) (no (unknown) (unknown) acyclovir. States (units (unknown) date) it only made it unknown) worse. 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 Counseled unknown) the patient if his symptoms do not improve (unknown) (no (unknown) (unknown) any specific (units (u nknown) date) finding in which unknown) case this may be a matter of watching and waiting (unknown) (no (unknown) (unknown) aphthous appearing (units (unknown) date) erythematous ulcer unknown) on the tip of the tongue on the left side. (unknown) (no (unknown) (unknown) atorvastatin 10 (units (unknown) date) mg tablet 10 mg PO unknown) DAILY #90 tabs 09/01/20 [Rx Confirmed (unknown) (no (unknown) (unknown) better, but they (units (unknown) date) are still unknown) painful.? 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 Do (units (unknown) date) prescribe unknown) mupirocin today to be used topically on his lips as (unknown) (no (unknown) (unknown) dexamethasone 0.5 (units (unknown) date) mg (5 mL) PO TID unknown) 12 days 180 mL 0RF apthous ulcers (unknown) (no (unknown) (unknown) dexamethasone 0.5 (units (unknown) date) mg/5 mL oral unknown) elixir 0.5 mg (5 mL) PO TID apthous ulcers 12 (unknown) (no (unknown) (unknown) dexamethasone (units ( unknown) date) swish for unknown) inflammation and pain. Patient was very interested in (unknown) (no (unknown) (unknown) difficulty with (units (unknown) date) eating and unknown) drinking because of the pain he is using a straw (unknown) (no (unknown) (unknown) distress. (units (unkn own) date) unknown) (unknown) (no (unknown) (unknown) erythromycin base (units (unknown) date) Allergy (Verified unknown) 06/19/22 12:29) (unknown) (no (unknown) (unknown) evaluation (units (unk nown) date) particularly of unknown) lip which may be more consistent with bacterial (unknown) (no (unknown) (unknown) for about a week (units (unknown) date) and a half. He unknown) states that there on his lips and also on the (unknown) (no (unknown) (unknown) gabapentin 300 mg (units (unknown) date) capsule 300 mg PO unknown) BEDTIME #90 caps 12/20/21 [Rx Confirmed (unknown) (no (unknown) (unknown) getting fluids (units (unknown) date) down. Denies a unknown) rash anywhere else on his body. (unknown) (no (unknown) (unknown) have occurred. If (units (unknown) date) there are any unknown) questions, please contact the Medical Records (unknown) (no (unknown) (unknown) icterus. No (units (un known) date) injection or unknown) drainage. (unknown) (no (unknown) (unknown) lesions. Throat (units (unknown) date) without erythema, unknown) tonsillar hypertrophy or exudate. Airway (unknown) (no (unknown) (unknown) lidocaine HCl 2 % (units (unknown) date) mucosal solution unknown) (Lidocaine Viscous) 1 applic mucous membrane (unknown) (no (unknown) (unknown) lidocaine HCl 2% (units (unknown) date) (Lidocaine unknown) Viscous) 1 applic mucous membrane TID PRN 100 mL (unknown) (no (unknown) (unknown) lisinopril 10 mg (units (unknown) date) tablet 10 mg PO unknown) DAILY #90 tabs 08/01/20 [Rx Confirmed 06/19/22] (unknown) (no (unknown) (unknown) loperamide 2 mg (units (unknown) date) tablet 2 mg PO QID unknown) PRN 05/15/20 [History Confirmed 06/19/22] (unknown) (no (unknown) (unknown) may occur. (units (unk nown) date) Occasional unknown) wrong-word or 'sound-alike' substitutions may have (unknown) (no (unknown) (unknown) mouthwash today (units (unknown) date) in clinic for unknown) symptomatic control. Discussed options for (unknown) (no (unknown) (unknown) mupirocin 2 % (units ( unknown) date) topical ointment 1 unknown) applic topical TID 12 days #15 grams 06/19/22 (unknown) (no (unknown) (unknown) mupirocin 2% 1 (units (unknown) date) applic topical TID unknown) 12 days 15 grams 0RF (unknown) (no (unknown) (unknown) occurred due to (units (unknown) date) the inherent unknown) limitations of voice recognition software. Please (unknown) (no (unknown) (unknown) omeprazole 20 mg (units (unknown) date) capsule,delayed unknown) release 20 mg PO DAILY #90 caps 08/01/20 [Rx (unknown) (no (unknown) (unknown) or worsen that he (units (unknown) date) may need to see a unknown) hearing and speech assistant or a (unknown) (no (unknown) (unknown) outpatient (units (unk nown) date) management and unknown) prescription for viscous lidocaine as well as a (unknown) (no (unknown) (unknown) pain. Denies any (units (unknown) date) other complaints unknown) or concerns he does state he has been having (unknown) (no (unknown) (unknown) patent. (units (unkno wn) date) unknown) (unknown) (no (unknown) (unknown) rales, or (units (unkn own) date) rhonchi. unknown) (unknown) (no (unknown) (unknown) rather than (units (un known) date) viral. Tongue does unknown) appear to have an aphthous ulcer. Magic (unknown) (no (unknown) (unknown) read the note (units ( unknown) date) carefully and unknown) recognize, using context, where these substitutions (unknown) (no (unknown) (unknown) relieved his (units (u nknown) date) symptoms at all. unknown) States ?they look like they are getting a little (unknown) (no (unknown) (unknown) right. corners of (units (unknown) date) the mouth are unknown) spared. There is a small approximately 2 mm (unknown) (no (unknown) (unknown) software. 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 And that the swabs may not return with (unknown) (no (unknown) (unknown) them before but (units (unknown) date) not this bad. Was unknown) seen at the [facility] in and given (unknown) (no (unknown) (unknown) them in the past (units (unknown) date) but it has been unknown) over a year since he is had them. He states (unknown) (no (unknown) (unknown) tip of his (units (unk nown) date) tongue. He is not unknown) had them anywhere else in his mouth. He has had (unknown) (no (unknown) (unknown) tongue and (units (unk nown) date) multiple on the unknown) lips upper and lower present for a week and a half. (unknown) (no (unknown) (unknown) up plan (units (unkno wn) date) discussed, all unknown) questions answered. (unknown) (no (unknown) (unknown) yellow material (units (unknown) date) present and some unknown) scabbing around them, both located on the Result panel 7 (unknown) (no date) (unknown) (unknown) COMMENT (units (unkn own) unknown) (unknown) (no date) (unknown) (unknown) COMMENT (units (unkn own) unknown) Result panel 8 (unknown) (no date) (unknown) (unknown) COMMENT (units (unkn own) unknown) (unknown) (no date) (unknown) (unknown) COMMENT (units (unkn own) unknown) Result panel 9 (unknown) (no date) (unknown) (unknown) (no value) (units (un known) unknown) (unknown) (no date) (unknown) (unknown) [address], unknown) [place], [place] [id number] (unknown) (no date) (unknown) (unknown) Comment (units (unkn own) unknown) (unknown) (no date) (unknown) (unknown) Reordering Clerk: (units (unknown) Marybel Hernandez unknown) , Phone: [phone] (unknown) (no date) (unknown) (unknown) No virus (units (unkn own) isolated at 24 unknown) hours. Next report to follow (unknown) (no date) (unknown) (unknown) Performed at: (units (unknown) [facility] unknown) [place] (unknown) (no date) (unknown) (unknown) Preliminary (units (u nknown) Report: unknown) (unknown) (no date) (unknown) (unknown) Preliminary (units (u nknown) Report: unknown) (unknown) (no date) (unknown) (unknown) after 4 days. (units (unknown) unknown) Result panel 10 (unknown) (no date) (unknown) (unknown) (no value) (units (un known) unknown) (unknown) (no date) (unknown) (unknown) [address], unknown) [place], [place] [phone] (unknown) (no date) (unknown) (unknown) 7 days. (units (unkn own) unknown) (unknown) (no date) (unknown) (unknown) Comment (units (unkn own) unknown) (unknown) (no date) (unknown) (unknown) Reordering Clerk: (units (unknown) Marybel Hernandez unknown) , Phone: [phone] (unknown) (no date) (unknown) (unknown) No virus (units (unkn own) isolated at 24 unknown) hours. Next report to follow (unknown) (no date) (unknown) (unknown) No virus (units (unkn own) isolated at 4 unknown) days. Next report to follow after (unknown) (no date) (unknown) (unknown) Performed at: (units (unknown) [facility] unknown) [place] (unknown) (no date) (unknown) (unknown) Preliminary (units (u nknown) Report: unknown) (unknown) (no date) (unknown) (unknown) Preliminary (units (u nknown) Report: unknown) (unknown) (no date) (unknown) (unknown) after 4 days. (units (unknown) unknown) Result panel 11 (unknown) (no date) (unknown) (unknown) (no value) (units (un known) unknown) (unknown) (no date) (unknown) (unknown) [address], unknown) [place], [place] [phone] (unknown) (no date) (unknown) (unknown) 7 days. (units (unkn own) unknown) (unknown) (no date) (unknown) (unknown) Comment (units (unkn own) unknown) (unknown) (no date) (unknown) (unknown) Reordering Clerk: (units (unknown) Marybel Hernandez unknown) , Phone: [phone] (unknown) (no date) (unknown) (unknown) No virus (units (unkn own) isolated at 24 unknown) hours. Next report to follow (unknown) (no date) (unknown) (unknown) No virus (units (unkn own) isolated at 4 unknown) days. Next report to follow after (unknown) (no date) (unknown) (unknown) No virus (units (unkn own) isolated. unknown) (unknown) (no date) (unknown) (unknown) Performed at: (units (unknown) [facility] unknown) [place] (unknown) (no date) (unknown) (unknown) Preliminary (units (u nknown) Report: unknown) (unknown) (no date) (unknown) (unknown) Preliminary (units (u nknown) Report: unknown) (unknown) (no date) (unknown) (unknown) after 4 days. (units (unknown) unknown) Social History date description facility 2022-06-19 00:00 Never smoked tobacco ([facility] Vital Signs date measurement value units 2022-06-17 00:00 BMI 28.01 kg/m2 2022-06-17 00:00 BP_diastolic 80 mmHg 2022-06-17 00:00 BP_systolic 129 mmHg 2022-06-17 00:00 heart_rate 63 /min 2022-06-17 00:00 height_metric 182.88 cm 2022-06-17 00:00 height_standard 72 in 2022-06-17 00:00 respiration_rate 16 /min 2022-06-17 00:00 temperature_metric 36.67 C 2022-06-17 00:00 temperature_standard 98 F 2022-06-17 00:00 weight_metric 93.35 kg 2022-06-17 00:00 weight_standard 205.8 lb 2022-06-19 00:00 BMI 27.1 kg/m2 2022-06-19 00:00 BP_diastolic 74 mmHg 2022-06-19 00:00 BP_systolic 122 mmHg 2022-06-19 00:00 heart_rate 56 /min 2022-06-19 00:00 height_metric 182.88 cm 2022-06-19 00:00 height_standard 72 in 2022-06-19 00:00 o2_saturation 99 % 2022-06-19 00:00 respiration_rate 14 /min 2022-06-19 00:00 temperature_metric 36.44 C 2022-06-19 00:00 temperature_standard 97.6 F 2022-06-19 00:00 weight_metric 90.71 kg 2022-06-19 00:00 weight_standard 199.98 lb
[2022-08-03 05:40] LABS: BASOPHILS # (AUTO) 0.1 10^3/uL (0.0-0.1); BASOPHILS % (AUTO) 0.3 %; EOSINOPHILS # (AUTO) 0.3 10^3/uL (0.0-0.7); EOSINOPHILS % (AUTO) 2.3 %; HCT - HEMATOCRIT 43.9 % (42.0-52.0); HGB - HEMOGLOBIN 15.3 g/dL (14.0-18.0); LYMPHOCYTES # (AUTO) 3.9 10^3/uL (1.5-3.5); LYMPHOCYTES % (AUTO) 27.1 %; MEAN CORPUSCULAR HEMOGLOBIN 30.8 pg (27.0-31.0); MEAN CORPUSCULAR HGB CONC 34.9 g/dL (32.0-36.0); MEAN CORPUSCULAR VOLUME 88.5 fL (80.0-94.0); MEAN PLATELET VOLUME 11.5 fL (7.4-11.4); MONOCYTES # (AUTO) 1.1 10^3/uL (0.0-1.0); MONOCYTES % (AUTO) 7.5 %; NEUTROPHILS # (AUTO) 8.9 10^3/uL (1.5-6.6); NEUTROPHILS % (AUTO) 62.5 %; PLT - PLATELET COUNT 207 10^3/uL (130-450); RED BLOOD COUNT 4.96 10^6/uL (4.70-6.10); RED CELL DISTRIBUTION WIDTH 12.5 % (12.0-15.0); WHITE BLOOD COUNT 14.3 x10^3/uL (4.8-10.8)
[2022-08-03] MEDS ORDERED: AMOX/CLAV 875 MG/125 MG TABLET PO STA (05:47)
[2022-08-03 05:51] LABS: ALBUMIN 3.9 g/dL (3.2-5.5); ALBUMIN/GLOBULIN RATIO 1.2 (1.0-2.2); BILIRUBIN,TOTAL 1.2 mg/dL (0.2-1.0); CALCIUM 9.4 mg/dL (8.5-10.3); CREATININE 1.3 mg/dL (0.6-1.2); POTASSIUM 3.8 mmol/L (3.5-5.0); TOTAL PROTEIN 7.2 g/dL (6.7-8.2)
[2022-08-03] MEDS ORDERED: ONDANSETRON 4 MG/2 ML VIAL IVP STA (05:56)
[2022-08-03] MEDS ORDERED: SODIUM CHLORIDE 0.9% 1,000 ML IV STA (05:56)
--- NOTE | 2022-08-03 05:56 | ED Physician Documentation ---
History of Present Illness - Stated complaint Stated Complaint: CHEST PX/SOA - Chief complaint Chief Complaint: Cardiac - History obtained from History obtained from: Patient - Additonal information Additional information: 67-year-old man presents with nasal congestion and cough productive of green sputum for the past couple of days, now with left-sided chest pain and shortness of breath since yesterday as well as R ear pain. Patient endorses fever/chills and decreased appetite/malaise. Review of Systems Constitutional: reports: Fever, Chills, Myalgias, Fatigue Ears: reports: Ear pain Nose: reports: Rhinorrhea / runny nose, Congestion Throat: reports: Sore throat Cardiac: reports: Chest pain / pressure Respiratory: reports: Dyspnea, Cough PD PAST MEDICAL HISTORY - Past Medical History Cardiovascular: Hypertension, High cholesterol Respiratory: None Endocrine/Autoimmune: None GI: GERD : None HEENT: None Psych: None Musculoskeletal: None Derm: None - Past Surgical History Past Surgical History: Yes General: Cholecystectomy - Present Medications Home Medications: Ambulatory Orders Medication Instructions Recorded Confirmed Gabapentin 300 mg PO DAILY 10/07/15 12/24/15 HYDROcod/ACETAM 5/325 [Vicodin 1 tab PO QID PRN 10/07/15 12/24/15 5/325] clonazePAM [Klonopin] 5 mg PO DAILY 10/07/15 12/24/15 lisinopriL [Lisinopril] 10 mg PO DAILY 10/07/15 12/24/15 methocarbamoL [Robaxin] 500 mg PO DAILY 10/07/15 12/24/15 Promethazine Supp [Phenergan Supp] 25 mg MD Q6H PRN #15 supp 12/23/15 12/24/15 Ondansetron Odt [Zofran] 4 mg TL Q6H PRN #10 tablet 12/24/15 Fluticasone [Flonase] 1 sprays EZRA BID #1 bottle 05/20/19 Amox/Clav 875/125 [Augmentin 1 tablet PO Q12H 7 Days #14 tablet 08/03/22 875/125 Tab] - Allergies Allergies/Adverse Reactions: Allergies Allergy/AdvReac Type Severity Reaction Status Date / Time Penicillins Allergy Rash Verified 08/03/22 05:19 erythromycin base AdvReac Nausea Verified 08/03/22 05:19 [From E-Mycin] - Social History Does the pt smoke?: No Smoking Status: Never smoker Does the pt drink ETOH?: No Does the pt have substance abuse?: No - Immunizations Immunizations are current?: Yes - POLST Patient has POLST: No PD ED PE NORMAL - Vitals Vital signs reviewed: Yes - General General: Alert and oriented X 3, No acute distress, Well developed/nourished - HEENT HEENT: Atraumatic, PERRL, EOMI, Other (R otitis media) - Neck Neck: Supple, no meningeal sign - Cardiac Cardiac: RRR - Respiratory Respiratory: No respiratory distress, Clear bilaterally Results - Vitals Vitals: Vital Signs - 24 hr 08/03/22 08/03/22 08/03/22 05:05 05:20 06:08 Temperature 36.1 C L Heart Rate 93 65 Respiratory 18 18 18 Rate Blood Pressure 122/73 126/80 O2 Saturation 97 97 Oxygen O2 Source Room air - EKG (time done) 0513 Rate: Rate (enter#) (80) Rhythm: NSR [place]: Normal Intervals: Normal MD QRS: Normal Ischemia: Normal ST segments - Labs Labs: Laboratory Tests 08/03/22 08/03/22 08/03/22 05:17 05:17 05:17 WBC 14.3 H RBC 4.96 Hgb 15.3 Hct 43.9 MCV 88.5 MCH 30.8 MCHC 34.9 RDW 12.5 Plt Count 207 MPV 11.5 H Neut # (Auto) 8.9 H Lymph # (Auto) 3.9 H [place] # (Auto) 1.1 H Eos # (Auto) 0.3 Baso # (Auto) 0.1 Absolute Nucleated RBC 0.00 Nucleated RBC % 0.0 Sodium 141 Potassium 3.8 Chloride 107 Carbon Dioxide 21 Anion Gap 13.0 BUN 18 Creatinine 1.3 H Estimated GFR (MDRD) 55 L Glucose 144 H Calcium 9.4 Total Bilirubin 1.2 H AST 18 ALT 15 Alkaline Phosphatase 80 Troponin I High Sens 5.6 Total Protein 7.2 Albumin 3.9 Globulin 3.3 Albumin/Globulin Ratio 1.2 Lipase 27 Nasal Adenovirus (PCR) Nasal B. parapertussis DNA (PCR) Nasal Coronavir 229E PCR Nasal Coronavir HKU1 PCR Nasal Coronavir NL63 PCR Nasal Coronavir OC43 PCR Nasal Enterovir/Rhinovir PCR Nasal Influenza B PCR Nasal Influenza A PCR Nasal Parainfluen 1 PCR Nasal Parainfluen 2 PCR Nasal Parainfluen 3 PCR Nasal Parainfluen 4 PCR Nasal RSV (PCR) Nasal B.pertussis DNA PCR Nasal C.pneumoniae (PCR) Ezra Human Metapneumo PCR Nasal M.pneumoniae (PCR) Nasal SARS-CoV-2 (PCR) 08/03/22 05:55 WBC RBC Hgb Hct MCV MCH MCHC RDW Plt Count MPV Neut # (Auto) Lymph # (Auto) [place] # (Auto) Eos # (Auto) Baso # (Auto) Absolute Nucleated RBC Nucleated RBC % Sodium Potassium Chloride Carbon Dioxide Anion Gap BUN Creatinine Estimated GFR (MDRD) Glucose Calcium Total Bilirubin AST ALT Alkaline Phosphatase Troponin I High Sens Total Protein Albumin Globulin Albumin/Globulin Ratio Lipase Nasal Adenovirus (PCR) NOT DETECTED Nasal B. parapertussis DNA (PCR) NOT DETECTED Nasal Coronavir 229E PCR NOT DETECTED Nasal Coronavir HKU1 PCR NOT DETECTED Nasal Coronavir NL63 PCR NOT DETECTED Nasal Coronavir OC43 PCR NOT DETECTED Nasal Enterovir/Rhinovir PCR NOT DETECTED Nasal Influenza B PCR NOT DETECTED Nasal Influenza A PCR NOT DETECTED Nasal Parainfluen 1 PCR NOT DETECTED Nasal Parainfluen 2 PCR NOT DETECTED Nasal Parainfluen 3 PCR NOT DETECTED Nasal Parainfluen 4 PCR NOT DETECTED Nasal RSV (PCR) NOT DETECTED Nasal B.pertussis DNA PCR NOT DETECTED Nasal C.pneumoniae (PCR) NOT DETECTED Ezra Human Metapneumo PCR NOT DETECTED Nasal M.pneumoniae (PCR) NOT DETECTED Nasal SARS-CoV-2 (PCR) NOT DETECTED PD Medical Decision Making - ED course ED course: 67-year-old man presents with nasal congestion and cough productive of green sputum for the past couple of days, now with left-sided chest pain and shortness of breath since yesterday as well as R ear pain. Patient endorses fever/chills and decreased appetite/malaise. 67-year-old man p/w URI and R otitis media. CBC, abdominal panel,trop, ekg and chest xray ordered. Labwork was remarkable for leukocytosis with WBC 14.3 suggesting infection c/w otitis detected on exam as well as URI symptoms. CXR with likely viral pattern c/w URI. troponin negative, and symptoms are atypical for ACS. EKG NSR without acute ischemic changes. d/w patient and provided first dose of antibiotics here in the ED. rx sent to pharmacy, return precautions given. plan to f/u pcp. Departure - Departure Disposition: 01 Home, Self Care Clinical Impression: URI (upper respiratory infection), Otitis media Condition: Stable Instructions: ED Otitis Media Acute Adult Prescriptions: Amox/Clav 875/125 [Augmentin 875/125 Tab] 1 tablet PO Q12H 7 Days #14 tablet Comments: You were seen in the emergency department for an upper respiratory infection and right sided ear infection. Please take your antibiotics as prescribed (sent electronically to [facility]) and return to the emergency department for new or worsening symptoms or other concerns. Follow-up with your primary care provider
[2022-08-03 06:53] LABS: B. PARAPERTUSSIS- RESP PCR PAN NOT DETECTED; B. PERTUSSIS- RESP PCR PANEL NOT DETECTED; C. PNEUMONIAE- RESP PCR PANEL NOT DETECTED; CORONAVIRUS 229E-RESP PCR NOT DETECTED; CORONAVIRUS HKU1-RESP PCR NOT DETECTED; CORONAVIRUS NL63-RESP PCR NOT DETECTED; CORONAVIRUS OC43-RESP PCR NOT DETECTED; HUMAN METAPNEUMOVIRUS NOT DETECTED; INFLUENZA A- RESP PCR PANEL NOT DETECTED; INFLUENZA B - RESP PCR PANEL NOT DETECTED; M. PNEUMONIAE- RESP PCR PANEL NOT DETECTED; PARAINFLUENZA VIRUS 1 NOT DETECTED; PARAINFLUENZA VIRUS 2 NOT DETECTED; PARAINFLUENZA VIRUS 3 NOT DETECTED; PARAINFLUENZA VIRUS 4 NOT DETECTED; RHINOVIRUS/ENTEROVIRUS NOT DETECTED; RSV- RESP PCR PANEL NOT DETECTED; SARS-CoV-2 -RESP PCR PANEL NOT DETECTED
[2022-08-03 07:28] VITALS: BP 131/85
--- NOTE | 2022-08-03 10:39 | XRAY Report ---
PROCEDURE: Chest 1 View X-Ray INDICATIONS: Chest Pain TECHNIQUE: One view of the chest was acquired. COMPARISON: Chest x-ray 05/31/2013. FINDINGS: Surgical changes and devices: None. Lungs and pleura: Slight appearance of peribronchial wall thickening on the right. Mediastinum: Mediastinal contours appear normal. Heart size is normal. Bones and chest wall: No suspicious bony lesions. Overlying soft tissues appear unremarkable. IMPRESSION: Mild peribronchial wall thickening suggestive of infection or inflammation. Reviewed by: Mari Martinez MD on 08/03/2022 10:[address] [facility] Approved by: Mari Martinez MD on 08/03/2022 10:[address] [facility] Station ID: [id number]
== END 2022-08-03 07:27 | disposition home or self-care (01) ==
LOC: ED 05:01
DX: J06.9 Acute upper respiratory infection, unspecified (principal); H66.91 Otitis media, unspecified, right ear; Z20.822 Contact with and (suspected) exposure to COVID-19
CPT/HCPCS: 36415; 71045; 80053; 83690; 84484; 85025; 87633; 93005; 96361; 96374; 99284; A9270

== ENCOUNTER 2022-09-12 02:58 | Emergency (ER) | payer MEDICARE, OTHER ==
--- NOTE | 2022-09-12 03:18 | ED Physician Documentation ---
PD HPI CHEST PAIN - Stated complaint Stated Complaint: CHEST PX/NAUSEA - Chief complaint Chief Complaint: Cardiac - History obtained from History obtained from: Patient - History of Present Illness Timing - onset: How many days ago (has had some congestion and cough for about a week, that has increased the past 1-2 days with worse cough leading to nausea and some vomiting of phlegm, chest tightness with breathing, and left chest pain to left arm with coughing.) Timing - onset during: Rest Timing - duration: Days Timing - details: Gradual onset, Still present Quality: Tightness, Sharp Location: Left chest Radiation: Left upper extremity Worsened by: Inspiration, Other (cough) Associated symptoms: Shortness of air, Nausea, Cough (for about 5-6 days, with now worsening the past day, now productive.). No: Feeling faint / dizzy, Palpitations Similar symptoms before: Has not had sx before Recently seen: Not recently seen Review of Systems Constitutional: reports: Fever, Chills, Myalgias Nose: reports: Congestion Throat: denies: Sore throat Cardiac: reports: Chest pain / pressure (pleuritic/muscular character with coughing.) Respiratory: reports: Dyspnea, Cough (worse the past 1-2 days), Wheezing (tig htness in chest) PD PAST MEDICAL HISTORY - Past Medical History Cardiovascular: Hypertension, High cholesterol Respiratory: None Endocrine/Autoimmune: None GI: GERD : None HEENT: None Psych: None Musculoskeletal: None Derm: None - Past Surgical History Past Surgical History: Yes General: Cholecystectomy - Present Medications Home Medications: Ambulatory Orders Medication Instructions Recorded Confirmed Gabapentin 300 mg PO DAILY 10/07/15 12/24/15 HYDROcod/ACETAM 5/325 [Vicodin 1 tab PO QID PRN 10/07/15 12/24/15 5/325] clonazePAM [Klonopin] 5 mg PO DAILY 10/07/15 12/24/15 lisinopriL [Lisinopril] 10 mg PO DAILY 10/07/15 12/24/15 methocarbamoL [Robaxin] 500 mg PO DAILY 10/07/15 12/24/15 Promethazine Supp [Phenergan Supp] 25 mg SC Q6H PRN #15 supp 12/23/15 12/24/15 Ondansetron Odt [Zofran] 4 mg TL Q6H PRN #10 tablet 12/24/15 Fluticasone [Flonase] 1 sprays EZRA BID #1 bottle 05/20/19 Amox/Clav 875/125 [Augmentin 1 tablet PO Q12H 7 Days #14 tablet 08/03/22 875/125 Tab] Albuterol Sulf [Ventolin Hfa 2 - 3 puffs INH Q4HR PRN #1 each 09/12/22 Inhaler] Benzonatate [Tessalon] 100 mg PO TID PRN #20 cap 09/12/22 Ondansetron Odt [Zofran] 4 mg TL Q6H PRN #10 tablet 09/12/22 cefUROXime axetiL [Ceftin] 250 mg PO Q12H #10 tablet 09/12/22 dexAMETHasone [Decadron] 4 mg PO DAILY #5 tablet 09/12/22 - Allergies Allergies/Adverse Reactions: Allergies Allergy/AdvReac Type Severity Reaction Status Date / Time Penicillins Allergy Rash Verified 09/12/22 03:13 erythromycin base AdvReac Nausea Verified 09/12/22 03:13 [From E-Mycin] - Social History Does the pt smoke?: No Smoking Status: Never smoker Does the pt drink ETOH?: No Does the pt have substance abuse?: No - Immunizations Immunizations are current?: Yes - POLST Patient has POLST: No PD ED PE NORMAL - Vitals Vital signs reviewed: Yes - General General: Alert and oriented X 3, No acute distress, Well developed/nourished - HEENT HEENT: Pharynx benign - Neck Neck: Supple, no meningeal sign, No adenopathy - Cardiac Cardiac: RRR, No murmur - Respiratory Respiratory: No: Clear bilaterally (some congested sounds more to the left. Prolonged exp phase of breathing, wtih mild wheezing sounds. No chestwall tenderness per se. ) - Abdomen Abdomen: Soft, Non tender - Derm Derm: Normal color, Warm and dry - Extremities Extremities: No edema, No calf tenderness / cord Results - Vitals Vitals: Oxygen O2 Source Room air - EKG (time done) 03:09 Rate: Rate (enter#) (75) Rhythm: NSR [place]: Normal Intervals: Normal SC QRS: Normal Ischemia: Normal ST segments. No: ST elevation c/w ischemia, ST depression Other comments: Other comments (personally interpreted by me.) Compare to prior EKG: Old EKG unavailable - Rads (name of study) chest xray Radiology: Prelim report reviewed, EMP read indepedently (viewing of the xray personally I do not see any infiltrates, effusions, nor PTX. ), See rad report PD Medical Decision Making - ED course Complexity details: re-evaluated patient (he does feel better after albuterol MDI regarding tightness breathing. Less chest pain with IM Toradol. Will treat p resumed bronchitis with wheezing. ), considered differential (URI symptoms with cough and dyspnea and has developed chest pain and tightness with the cough. some nausea with coughing and also on its own. ), d/w patient ED course: has had some uri symptoms with now escalated cough/sputum/dyspnea symptoms for 1-2 days. consider secondary bacterial infection. CXR without pneumonia nor effusion. Pain with coughing and enough cough leading to nausea/vomiting of phlegm. Does not sound cardiac. Normal ECG and I do not feel further testing is needed. Departure - Departure Disposition: 01 Home, Self Care Clinical Impression: Nausea, Acute bronchitis, Chest pain Condition: Stable Record reviewed to determine appropriate education?: Yes Instructions: ED Upper Resp Infec Abx Tx Prescriptions: Albuterol Sulf [Ventolin Hfa Inhaler] 2 - 3 puffs INH Q4HR PRN #1 each PRN Reason: Shortness Of Air/Wheezing cefUROXime axetiL [Ceftin] 250 mg PO Q12H #10 tablet dexAMETHasone [Decadron] 4 mg PO DAILY #5 tablet Benzonatate [Tessalon] 100 mg PO TID PRN #20 cap PRN Reason: Cough Ondansetron Odt [Zofran] 4 mg TL Q6H PRN #10 tablet PRN Reason: Nausea / Vomiting Comments: It does sound like you have developed some bronchitis at this time on top of your prior likely chest cold/virus. We can treat this with a combination of medication for the cough as well as inhaler to help improve the breathing and an antibiotic for potential bacterial component. Add ondansetron if needed for nausea. Add benzonatate if needed for cough. We did give you a combination of these medications here in the ER that seemed to help. I sent prescriptions for the medications to [facility] pharmacy in [place]. Stay well-hydrated. Tylenol if needed for fevers or pains. Recheck if not improving well over the next several days and resolved by a week or so. Return if worse. Discharge Date/Time: 09/12/22 05:23
--- OUTSIDE RECORDS SUMMARY | 2022-09-12 03:32 | EXTERNAL MEDICAL SUMMARY RPT | Continuity of Care Document ---
:1955 Author Organization [facility] Address [address] [place] [address] Phone Care Team Providers Name Role Phone Unavailable Unavailable Unavailable Dustin Barrientos Unavailable Unavailable Karla Jaimie Leone Enp Unavailable Unavailable NurseJennifer Unavailable Unavailable Allergies No information. Encounters No information. Functional Status No information. Immunizations No information. Medications date description facility 2022-06-17 00:00 hydrocodone-acetaminophen All 2022-06-20 00:00 hydrocodone-acetaminophen All 2022-06-17 00:00 acyclovir All 2022-06-17 00:00 acyclovir All 2022-06-17 00:00 acyclovir All 2022-06-17 00:00 acyclovir All 2022-06-21 00:00 [facility] 2022-06-17 00:00 acyclovir All 2022-06-17 00:00 acyclovir All 2022-06-19 00:00 [facility] 2022-06-17 00:00 gabapentin All 2022-06-20 00:00 gabapentin All 2022-06-21 00:00 [facility] 2022-06-17 00:00 gabapentin All 2022-06-20 00:00 [...] Other herpesviral infection All 2022-06-19 13[facility] Procedures date description facility 2022-08-22 00:00 Viral Culture [facility] 2022-06-17 00:00 Visit Code Hold All 2022-06-17 00:00 Visit Code Hold All Results/Labs test date author facility value unit interpret ation Result panel 1 (unknown) (no date[facility]) Result panel 2 (unknown) (no date) (unknown[facility]) Result panel 3 (unknown) (no date) (unknown[facility]) Result panel 4 (unknown) (no date) (unknown[facility]) Result panel 5 (unknown) (no date) (unknown[facility]) Result panel 6 (unknown) (no date) (unknown[facility]) Result panel 7 (unknown) (no date) (unknown[facility]) Result panel 8 (unknown) (no date) (unknown[facility]) Result panel 9 (unknown) (no date) (unknown[facility]) Result panel 10 (unknown) (no date) (unknown[facility]) Result panel 11 (unknown) (no date) (unknown[facility]) Result panel 12 (unknown) (no date) (unknown[facility]) Result panel 13 (unknown) (no date) (unknown[facility]) Result panel 14 (unknown) (no date) (unknown[facility]) Result panel 15 (unknown) (no date) (unknown[facility]) Result panel 16 (unknown) (no date) (unknown[facility]) Result panel 17 (unknown) (no date) (unknown[facility]) Result panel 18 (unknown) (no date) (unknown[facility]) Result panel 19 (unknown) (no date) (unknown[facility]) Result panel 20 (unknown) (no date) (unknown[facility]) Result panel 21 (unknown) (no date) (unknown[facility]) Result panel 22 (unknown) (no date) (unknown[facility]) Result panel 23 (unknown) (no date) (unknown[facility]) Result panel 24 (unknown) (no date) (unknown[facility]) Result panel 25 (unknown) (no date) (unknown) [facility]) Result panel 26 (unknown) (no date) (unknown) [facility]) Result panel 27 (unknown) (no date) (unknown) [facility]) Result panel 28 (unknown) (no date) (unknown[facility]) Result panel 29 (unknown) (no date) (unknown[facility]) Result panel 30 (unknown) (no date) (unknown[facility]) Result panel 31 (unknown) (no date) (unknown[facility]) Result panel 32 (unknown) (no date) (unknown[facility]) Result panel 33 (unknown) (no date) (unknown[facility]) Result panel 34 (unknown) (no date) (unknown) [facility]) Result panel 35 (unknown) (no date) (unknown) [facility]) Result panel 36 (unknown) (no date) (unknown) [facility]) Result panel 37 (unknown) (no date) (unknown) [facility]) Result panel 38 (unknown) (no date) (unknown) [facility]) Result panel 39 (unknown) (no date) (unknown) [facility]) Result panel 40 (unknown) (no date) (unknown) [facility]) Result panel 41 (unknown) (no date) (unknown[facility]) Result panel 42 (unknown) (no date) (unknown) [facility]) Result panel 43 (unknown) (no date) (unknown) [facility]) Result panel 44 (unknown) (no date) (unknown) [facility]) Result panel 45 (unknown) (no date) (unknown) [facility]) Result panel 46 (unknown) (no date) (unknown) [facility]) Result panel 47 (unknown) (no date) (unknown) [facility]) Result panel 48 (unknown) (no date) (unknown) [facility]) Result panel 49 (unknown) (no date) (unknown) [facility]) Result panel 50 (unknown) (no date) (unknown) [facility]) Result panel 51 (unknown) (no date) (unknown) [facility]) Result panel 52 (unknown) (no date) (unknown) [facility]) Result panel 53 (unknown) (no date) (unknown) [facility]) Result panel 54 (unknown) (no date) (unknown) [facility]) Result panel 55 (unknown) (no date) (unknown) [facility]) Result panel 56 (unknown) (no date) (unknown) [facility]) Result panel 57 (unknown) (no date) (unknown) [facility]) Result panel 58 (unknown) (no date) (unknown) [facility]) Result panel 59 (unknown) (no date) (unknown) [facility]) Result panel 60 (unknown) (no date) (unknown) [facility]) Result panel 61 (unknown) (no date) (unknown) [facility]) Result panel 62 (unknown) (no date) (unknown) [facility]) Result panel 63 (unknown) (no date) (unknown) [facility]) Result panel 64 (unknown) (no date) (unknown) [facility]) Result panel 65 (unknown) (no date) (unknown) [facility]) Result panel 66 (unknown) (no date) (unknown) [facility]) Result panel 67 (unknown) (no date) (unknown) [facility]) Result panel 68 (unknown) (no date) (unknown) [facility]) Result panel 69 (unknown) (no date) (unknown) [facility]) Result panel 70 (unknown) (no date) (unknown) [facility]) Result panel 71 (unknown) (no date) (unknown) [facility]) Result panel 72 (unknown) (no date) (unknown) [facility]) Result panel 73 (unknown) (no date) (unknown) [facility]) Result panel 74 (unknown) (no date) (unknown) [facility]) Result panel 75 (unknown) (no date) (unknown) [facility]) Result panel 76 (unknown) (no date) (unknown) [facility]) Result panel 77 (unknown) (no date) (unknown) [facility]) Result panel 78 (unknown) (no date) (unknown) [facility]) Result panel 79 (unknown) (no date) (unknown) [facility]) Result panel 80 (unknown) (no date) (unknown) [facility]) Result panel 81 (unknown) (no date) (unknown) [facility]) Result panel 82 (unknown) (no date) (unknown) [facility]) Result panel 83 (unknown) (no date) (unknown) [facility]) Result panel 84 (unknown) (no date) (unknown) [facility]) Result panel 85 (unknown) (no date) (unknown) [facility]) Result panel 86 (unknown) (no date) (unknown) [facility]) Result panel 87 (unknown) (no date) (unknown) [facility]) Result panel 88 (unknown) (no date) (unknown) [facility]) Result panel 89 (unknown) (no date) (unknown) [facility]) Result panel 90 (unknown) (no date) (unknown) [facility]) Result panel 91 (unknown) (no date) (unknown) [facility]) Result panel 92 (unknown) (no date) (unknown) [facility]) Result panel 93 (unknown) (no date) (unknown) [facility]) Result panel 94 (unknown) (no date) (unknown) [facility]) Result panel 95 (unknown) (no date) (unknown) [facility]) Result panel 96 (unknown) (no date) (unknown) [facility]) Result panel 97 (unknown) (no date) (unknown) [facility]) Result panel 98 (unknown) (no date) (unknown) [facility]) Result panel 99 (unknown) (no date) (unknown) [facility]) Result panel 100 (unknown) (no date) (unknown) [facility]) Result panel 101 (unknown) (no date) (unknown[facility]) Result panel 102 (unknown) (no date) (unknown) [facility]) Result panel 103 (unknown) (no date) (unknown[facility]) Result panel 104 (unknown) (no (unknown) (unknown) (no value) (units (unk nown) date) unknown) (unknown) (no (unknown) (unknown) 06/19/22 (units (unkno wn) date) unknown) (unknown) (no (unknown) (unknown) [id number] (units (unkno wn) date) unknown) (unknown) (no (unknown) (unknown) 227 (units (unkno wn) date) unknown) (unknown) (no (unknown) (unknown) Age/Sex: 67 / M (units (unknown) date) Date of Service: unknown) (unknown) (no (unknown) (unknown) Allergies (units (unkn own) date) unknown) (unknown) (no (unknown) (unknown) [facility] (units (unknown) date) Medicine unknown) (unknown) (no (unknown) (unknown) [place], [place] (units ( unknown) date) [id number] unknown) (unknown) (no (unknown) (unknown) Anesthesia (units (unk nown) date) unknown) (unknown) (no (unknown) (unknown) Attending Dr: (units ( unknown) date) Lela Tam unknown) P.A-C (unknown) (no (unknown) (unknown) Brother (units (unknown) [...] (unknown) (unknown) : 1955 (units (unknown) date) Acct:[id number] unknown) (unknown) (no (unknown) (unknown) Dept at [...] (unknown) (unknown) Patient: (units (unkno wn) date) Shannon Mcnally D unknown) MR#: [id number] (unknown) (no (unknown) [...] unknown) 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 unknown) Result panel 105 (unknown) (no (unknown) (unknown) (no value) (units (unk nown) date) unknown) (unknown) (no (unknown) (unknown) 06/19/22 (units (unkno wn) date) unknown) (unknown) (no (unknown) (unknown) 06/19/22] (units (unkn own) date) unknown) (unknown) (no (unknown) (unknown) 12:29 (units (unkno wn) date) unknown) (unknown) (no (unknown) (unknown) [id number] (units (unkno wn) date) unknown) (unknown) (no (unknown) (unknown) 227 (units (unkno wn) date) unknown) (unknown) (no (unknown) (unknown) Age/Sex: 67 / M (units (unknown) date) Date of Service: unknown) (unknown) (no (unknown) (unknown) Allergies (units (unkn own) date) unknown) (unknown) (no (unknown) (unknown) [facility] (units (unknown) date) Medicine unknown) (unknown) (no (unknown) (unknown) [place], [place] (units ( unknown) date) [id number] unknown) (unknown) (no (unknown) (unknown) Anesthesia (units [...] (unknown) (unknown) : 1955 (units (unknown) date) Acct:[id number] unknown) (unknown) (no (unknown) (unknown) Dept at [...] (unknown) (unknown) Patient: (units (unkno wn) date) Bev,Terryl D unknown) MR#: [id number] (unknown) (no (unknown) [...] unknown) 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 Was unknown) seen at the [facility] walk in and given Result panel 106 (unknown) (no date) (unknown) (unknown) (no value) [...] (unknown) (no date) (unknown) (unknown) Final (units 31735 -5 report unknown) (unknown) (no date) (unknown) (unknown) Final (units 664-3 report unknown) (unknown) (no date) (unknown) (unknown) No virus (units (unkn own) isolated. unknown) (unknown) (no date) (unknown) (unknown) No virus (units 6584- 7 isolated. unknown) Result panel 107 (unknown) (no (unknown) (unknown) (no value) (units [...] wn) date) unknown) (unknown) (no (unknown) (unknown) [id number] (units (unkno wn) date) unknown) (unknown) (no [...] own) date) unknown) (unknown) (no (unknown) (unknown) [facility] (units (unknown) date) Medicine unknown) (unknown) (no (unknown) (unknown) [place], [place] (units ( unknown) date) [id number] unknown) (unknown) (no (unknown) (unknown) Anesthesia (units [...] (unknown) (unknown) : 1955 (units (unknown) date) Acct:[id number] unknown) (unknown) (no (unknown) (unknown) Dept at [...] (unknown) (unknown) Patient: (units (unkno wn) date) Shannon Mcnally unknown) MR#: [id number] (unknown) (no (unknown) (unknown) [...] (units (u nknown) date) option, 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 And that the swabs may not return with (unknown) (no (unknown) (unknown) them before but (units (unknown) date) not this bad. Was unknown) seen at the [facility] walk in and given (unknown) (no (unknown) [...] them, both located on the Result panel 108 (unknown) (no date) (unknown) (unknown) COMMENT (units (unkn own) unknown) (unknown) (no date) (unknown) (unknown) COMMENT (units (unkn own) unknown) Result panel 109 (unknown) (no date) (unknown) (unknown) COMMENT (units (unkn own) unknown) (unknown) (no date) (unknown) (unknown) COMMENT (units (unkn own) unknown) Result panel 110 (unknown) (no date) (unknown) (unknown) (no value) (units (un known) unknown) (unknown) (no date) (unknown) (unknown) [address], unknown) [place], [place] [id number] (unknown) (no date) (unknown) (unknown) Comment (units (unkn own) unknown) (unknown) (no date) (unknown) (unknown) [employer]: (units (unknown) Marybel Hernandez unknown) , Phone: [phone] (unknown) (no date) (unknown) (unknown) No virus (units (unkn own) isolated at 24 unknown) hours. Next report to follow (unknown) (no date) (unknown) (unknown) Performed at: (units (unknown) [facility] unknown) [facility] (unknown) (no date) (unknown) (unknown) Preliminary (units (u nknown) Report: unknown) (unknown) (no date) (unknown) (unknown) Preliminary (units (u nknown) Report: unknown) (unknown) (no date) (unknown) (unknown) after 4 days. (units (unknown) unknown) Result panel 111 (unknown) (no date) (unknown) (unknown) (no value) (units (un known) unknown) (unknown) (no date) (unknown) (unknown) [address], unknown) [place], [place] [id number] (unknown) (no date) (unknown) (unknown) 7 days. (units (unkn own) unknown) (unknown) (no date) (unknown) (unknown) Comment (units (unkn own) unknown) (unknown) (no date) (unknown) (unknown) [employer]: (units (unknown) Marybel Hernandez unknown) , Phone: [phone] (unknown) (no date) (unknown) (unknown) No virus (units (unkn own) isolated at 24 unknown) hours. Next report to follow (unknown) (no date) (unknown) (unknown) No virus (units (unkn own) isolated at 4 unknown) days. Next report to follow after (unknown) (no date) (unknown) (unknown) Performed at: (units (unknown) [facility] unknown) [facility] (unknown) (no date) (unknown) (unknown) Preliminary (units (u nknown) Report: unknown) (unknown) (no date) (unknown) (unknown) Preliminary (units (u nknown) Report: unknown) (unknown) (no date) (unknown) (unknown) after 4 days. (units (unknown) unknown) Result panel 112 (unknown) (no date) (unknown) (unknown) (no value) (units (un known) unknown) (unknown) (no date) (unknown) (unknown) [address], unknown) [place], [place] [id number] (unknown) (no date) (unknown) (unknown) 7 days. (units (unkn own) unknown) (unknown) (no date) (unknown) (unknown) Comment (units (unkn own) unknown) (unknown) (no date) (unknown) (unknown) [employer]: (units (unknown) Marybel Hernandez unknown) , Phone: [phone] (unknown) (no date) (unknown) (unknown) No virus [...] at: (units (unknown) [facility] unknown) [facility] (unknown) (no date) (unknown) (unknown) Preliminary (units (u nknown) Report: unknown) (unknown) (no date) (unknown) (unknown) Preliminary (units (u nknown) Report: unknown) (unknown) (no date) (unknown) (unknown) after 4 days. (units (unknown) unknown) Result panel 113 (unknown) (no (unknown) (unknown) (no value) (units (unk nown) date) unknown) (unknown) (no (unknown) (unknown) 02/13/23 (units (unkno wn) date) unknown) (unknown) (no (unknown) (unknown) 08/22/22] (units (unkn own) date) unknown) (unknown) (no (unknown) (unknown) 16:20 (units (unkno wn) date) unknown) (unknown) (no (unknown) (unknown) [id number] (units (unkno wn) date) unknown) (unknown) (no (unknown) (unknown) Age/Sex: 67 / M (units (unknown) date) Date of Service: unknown) (unknown) (no (unknown) (unknown) Allergies (units (unkn own) date) unknown) (unknown) (no (unknown) (unknown) [place], [place] (units ( unknown) date) [id number] unknown) (unknown) (no (unknown) (unknown) Anesthesia (units (unk nown) date) unknown) (unknown) (no (unknown) (unknown) Attending Dr: (units ( unknown) date) Dustin Barrientos MD unknown) (unknown) (no (unknown) (unknown) BMI 27.3 (units (unkno wn) date) unknown) (unknown) (no (unknown) (unknown) BP 135/94 H (units (un known) date) unknown) (unknown) (no (unknown) (unknown) Blood [...] (unknown) (unknown) Confirmed (units (unkn own) date) 08/22/22] unknown) (unknown) (no (unknown) (unknown) : 1955 (units (unknown) date) Acct:[id number] unknown) (unknown) (no (unknown) (unknown) Dept at (units (unkno wn) date) . unknown) (unknown) (no (unknown) (unknown) Documented By: (units (unknown) date) Dustin Barrientos MD unknown) 08/22/22 1617 (unknown) (no (unknown) (unknown) Draft (units (unkno wn) date) unknown) (unknown) (no (unknown) (unknown) Family History (units (unknown) date) (Reviewed 06/19/22 unknown) @ 13:08 by Lela Tam PA-C) (unknown) (no (unknown) (unknown) Father History of (units (unknown) date) heart disease unknown) (unknown) (no (unknown) (unknown) [facility]) (unknown) (no (unknown) (unknown) Fractures (units (unkn own) date) unknown) (unknown) (no (unknown) (unknown) HTN (units (unkno wn) date) (hypertension) unknown) (unknown) (no (unknown) (unknown) Health Management (units (unknown) date) reviewed with unknown) patient: Yes (unknown) (no (unknown) (unknown) Health Management (units (unknown) date) unknown) (unknown) (no (unknown) (unknown) Hearing loss [...] (unknown) Intake performed (units (unknown) date) by: Dorina Mckeon unknown) (unknown) (no (unknown) (unknown) Intake (units (unkno wn) date) unknown) (unknown) (no (unknown) (unknown) Intake- Clincial (units (unknown) date) Staff unknown) (unknown) (no (unknown) (unknown) Internal Medicine (units (unknown) date) Office Visit unknown) (unknown) (no (unknown) (unknown) Loc: [facility] (units (unkno wn) date) unknown) (unknown) (no [...] (unknown) (unknown) Patient: (units (unkno wn) date) Shannon Mcnally unknown) MR#: [id number] (unknown) (no (unknown) (unknown) Penicillins (units (un known) date) [PENICILLINS] unknown) Allergy (Unknown, Verified 08/22/22 16:20) (unknown) (no (unknown) (unknown) Position Sitting (units (unknown) date) unknown) (unknown) (no (unknown) (unknown) Pulse 62 (units (unkno wn) date) unknown) (unknown) (no (unknown) (unknown) Pulse Oximetry (units (unknown) date) (%) 98 unknown) (unknown) (no (unknown) (unknown) Pulse Source [...] (unknown) date) mL 06/19/22 [Rx unknown) Confirmed 08/22/22] (unknown) (no (unknown) (unknown) This note may [...] (unknown) (unknown) Visit Reasons: (units (unknown) date) Ear Infection unknown) Right Ear (unknown) (no (unknown) (unknown) Vitals (units (unkno wn) date) unknown) (unknown) (no (unknown) (unknown) Weight 201 lb 8 (units (unknown) date) oz unknown) (unknown) (no (unknown) (unknown) atorvastatin 10 (units (unknown) date) mg tablet 10 mg PO unknown) DAILY #90 tabs 09/01/20 [Rx Confirmed (unknown) (no (unknown) (unknown) celecoxib 200 mg (units (unknown) date) capsule 200 mg PO unknown) DAILY #90 caps 06/21/22 [Rx Confirmed (unknown) (no (unknown) (unknown) covid- 4 done (units ( unknown) date) unknown) (unknown) (no (unknown) (unknown) cscope- appt end (units (unknown) date) of september unknown) (unknown) (no (unknown) (unknown) erythromycin base (units (unknown) date) Allergy (Verified unknown) 08/22/22 16:20) (unknown) (no (unknown) (unknown) f/u wic er for rt (units (unknown) date) ear pain - today unknown) seems like its better, still has some (unknown) (no (unknown) (unknown) flu- done (units (unkn own) date) unknown) (unknown) (no (unknown) (unknown) gabapentin 300 mg (units (unknown) date) capsule 300 mg PO unknown) BEDTIME #90 caps 12/20/21 [Rx Confirmed (unknown) (no (unknown) (unknown) have occurred. If (units (unknown) date) there are any unknown) questions, please contact the Medical Records (unknown) (no (unknown) (unknown) lidocaine HCl 2 % (units (unknown) date) mucosal solution unknown) (Lidocaine Viscous) 1 applic mucous membrane (unknown) (no (unknown) (unknown) lisinopril 10 mg (units (unknown) date) tablet 10 mg PO unknown) DAILY #90 tabs 08/01/20 [Rx Confirmed 08/22/22] (unknown) (no (unknown) (unknown) loperamide 2 mg (units (unknown) date) tablet 2 mg PO QID unknown) PRN 05/15/20 [History Confirmed 08/22/22] (unknown) (no (unknown) (unknown) may occur. (units (unk nown) date) Occasional unknown) wrong-word or 'sound-alike' substitutions may have (unknown) (no (unknown) (unknown) muffling going on (units (unknown) date) unknown) (unknown) (no (unknown) (unknown) occurred due to [...] where these substitutions (unknown) (no (unknown) (unknown) ref- ent was seen (units (unknown) date) in [facility] unknown) (unknown) (no (unknown) (unknown) software. 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 Result panel 114 (unknown) (no (unknown) (unknown) (no value) (units (unk nown) date) unknown) (unknown) (no (unknown) (unknown) 08/22/22 (units (unkno wn) date) unknown) (unknown) (no (unknown) (unknown) 08/22/22] (units (unkn own) date) unknown) (unknown) (no (unknown) (unknown) 16:20 (units (unkno wn) date) unknown) (unknown) (no (unknown) (unknown) [id number] (units (unkno wn) date) unknown) (unknown) (no (unknown) (unknown) Age/Sex: 67 / M (units (unknown) date) Date of Service: unknown) (unknown) (no (unknown) (unknown) Allergies (units (unkn own) date) unknown) (unknown) (no (unknown) (unknown) [place], [place] (units ( unknown) date) [id number] unknown) (unknown) (no (unknown) (unknown) Anesthesia (units (unk nown) date) unknown) (unknown) (no (unknown) (unknown) Attending Dr: (units ( unknown) date) Dustin Barrientos MD unknown) (unknown) (no (unknown) (unknown) BMI 27.3 (units (unkno wn) date) unknown) (unknown) (no (unknown) (unknown) BP 135/94 H (units (un known) date) unknown) (unknown) (no (unknown) (unknown) Blood [...] (unknown) (unknown) Confirmed (units (unkn own) date) 08/22/22] unknown) (unknown) (no (unknown) (unknown) : 1955 (units (unknown) date) Acct:[id number] unknown) (unknown) (no (unknown) (unknown) Dept at (units (unkno wn) date) . unknown) (unknown) (no (unknown) (unknown) Documented By: (units (unknown) date) Dustin Barrientos MD unknown) 08/22/22 1617 (unknown) (no (unknown) (unknown) Draft (units (unkno wn) date) unknown) (unknown) (no (unknown) (unknown) Family History (units (unknown) date) (Reviewed 06/19/22 unknown) @ 13:08 by Lela Tam PA-C) (unknown) (no (unknown) (unknown) Father History of (units (unknown) date) heart disease unknown) (unknown) (no (unknown) (unknown) [facility] unknown) (unknown) (no (unknown) (unknown) Fractures (units (unkn own) date) unknown) (unknown) (no (unknown) (unknown) HTN (units (unkno wn) date) (hypertension) unknown) (unknown) (no (unknown) (unknown) Health Management (units (unknown) date) reviewed with unknown) patient: Yes (unknown) (no (unknown) (unknown) Health Management (units (unknown) date) unknown) (unknown) (no (unknown) (unknown) Hearing loss [...] (unknown) Intake performed (units (unknown) date) by: Dorina Mckeon unknown) (unknown) (no (unknown) (unknown) Intake (units (unkno wn) date) unknown) (unknown) (no (unknown) (unknown) Intake- Clincial (units (unknown) date) Staff unknown) (unknown) (no (unknown) (unknown) Internal Medicine (units (unknown) date) Office Visit unknown) (unknown) (no (unknown) (unknown) Loc: [facility] (units (unkno wn) date) unknown) (unknown) (no [...] (unknown) (unknown) Patient: (units (unkno wn) date) Shannon Mcnally unknown) MR#: [id number] (unknown) (no (unknown) (unknown) Penicillins (units (un known) date) [PENICILLINS] unknown) Allergy (Unknown, Verified 08/22/22 16:20) (unknown) (no (unknown) (unknown) Position Sitting (units (unknown) date) unknown) (unknown) (no (unknown) (unknown) Pulse 62 (units (unkno wn) date) unknown) (unknown) (no (unknown) (unknown) Pulse Oximetry (units (unknown) date) (%) 98 unknown) (unknown) (no (unknown) (unknown) Pulse Source [...] (unknown) date) mL 06/19/22 [Rx unknown) Confirmed 08/22/22] (unknown) (no (unknown) (unknown) This note may [...] (unknown) (unknown) Visit Reasons: (units (unknown) date) Ear Infection unknown) Right Ear (unknown) (no (unknown) (unknown) Vitals (units (unkno wn) date) unknown) (unknown) (no (unknown) (unknown) Weight 201 lb 8 (units (unknown) date) oz unknown) (unknown) (no (unknown) (unknown) atorvastatin 10 (units (unknown) date) mg tablet 10 mg PO unknown) DAILY #90 tabs 09/01/20 [Rx Confirmed (unknown) (no (unknown) (unknown) celecoxib 200 mg (units (unknown) date) capsule 200 mg PO unknown) DAILY #90 caps 06/21/22 [Rx Confirmed (unknown) (no (unknown) (unknown) covid- 4 done (units ( unknown) date) unknown) (unknown) (no (unknown) (unknown) cscope- appt end (units (unknown) date) of september unknown) (unknown) (no (unknown) (unknown) erythromycin base (units (unknown) date) Allergy (Verified unknown) 08/22/22 16:20) (unknown) (no (unknown) (unknown) f[facility]u [facility] for rt (units (unknown) date) ear pain - today unknown) seems like its better, still has some (unknown) (no (unknown) (unknown) flu- done (units (unkn own) date) unknown) (unknown) (no (unknown) (unknown) gabapentin 300 mg (units (unknown) date) capsule 300 mg PO unknown) BEDTIME #90 caps 12/20/21 [Rx Confirmed (unknown) (no (unknown) (unknown) have occurred. If (units (unknown) date) there are any unknown) questions, please contact the Medical Records (unknown) (no (unknown) (unknown) lidocaine HCl 2 % (units (unknown) date) mucosal solution unknown) (Lidocaine Viscous) 1 applic mucous membrane (unknown) (no (unknown) (unknown) lisinopril 10 mg (units (unknown) date) tablet 10 mg PO unknown) DAILY #90 tabs 08/01/20 [Rx Confirmed 08/22/22] (unknown) (no (unknown) (unknown) loperamide 2 mg (units (unknown) date) tablet 2 mg PO QID unknown) PRN 05/15/20 [History Confirmed 08/22/22] (unknown) (no (unknown) (unknown) may occur. (units (unk nown) date) Occasional unknown) wrong-word or 'sound-alike' substitutions may have (unknown) (no (unknown) (unknown) muffling going on (units (unknown) date) unknown) (unknown) (no (unknown) (unknown) occurred due to [...] where these substitutions (unknown) (no (unknown) (unknown) ref- ent was seen (units (unknown) date) in [facility] unknown) (unknown) (no (unknown) (unknown) software. 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 Result panel 115 (unknown) (no (unknown) (unknown) (no value) (units (unk nown) date) unknown) (unknown) (no (unknown) (unknown) 08/22/22 (units (unkno wn) date) unknown) (unknown) (no (unknown) (unknown) 08/22/22] (units (unkn own) date) unknown) (unknown) (no (unknown) (unknown) 16:20 (units (unkno wn) date) unknown) (unknown) (no (unknown) (unknown) [id number] (units (unkno wn) date) unknown) (unknown) (no (unknown) (unknown) Add'l Plan (units (unk nown) date) Details unknown) (unknown) (no (unknown) (unknown) Add'l Plan*: (units (u nknown) date) unknown) (unknown) (no (unknown) (unknown) Affect: normal (units (unknown) date) affect unknown) (unknown) (no (unknown) (unknown) Age/Sex: 67 / M (units (unknown) date) Date of Service: unknown) (unknown) (no (unknown) (unknown) Aggravating (units (un known) date) factors: [] unknown) (unknown) (no (unknown) (unknown) All systems (units (un known) date) reviewed + are unknown) unremarkable except as noted in HPI and below (unknown) (no (unknown) (unknown) Allergies (units (unkn own) date) unknown) (unknown) (no (unknown) (unknown) Alleviating (units (un known) date) factors / unknown) interventions tried: [] (unknown) (no (unknown) (unknown) [place], [place] (units ( unknown) date) [id number] unknown) (unknown) (no (unknown) (unknown) Anesthesia (units (unk nown) date) unknown) (unknown) (no (unknown) (unknown) Appearance: (units (un known) date) grossly normal unknown) (unknown) (no (unknown) (unknown) Assessment + Plan (units (unknown) date) unknown) (unknown) (no (unknown) (unknown) Associated (units (unk nown) date) symptoms: [] unknown) (unknown) (no (unknown) (unknown) Attending Dr: (units ( unknown) date) Dustin Barrientos MD unknown) (unknown) (no (unknown) (unknown) Attitude: (units (unkn own) date) cooperative unknown) (unknown) (no (unknown) (unknown) BMI 27.3 (units (unkno wn) date) unknown) (unknown) (no (unknown) (unknown) BP 135/94 H (units (un known) date) unknown) (unknown) (no (unknown) (unknown) Blood Pressure (units (unknown) date) Location Lt unknown) brachial (unknown) (no (unknown) (unknown) Brother (units (unknown) date) Cancer unknown) (unknown) (no (unknown) (unknown) Bunion of left (units (unknown) date) foot unknown) (unknown) (no (unknown) (unknown) Character/details (units (unknown) date) : [] unknown) (unknown) (no (unknown) (unknown) Chicken pox (units (un known) date) unknown) (unknown) (no (unknown) (unknown) Chief complaint: (units (unknown) date) []; this problem unknown) is []. (unknown) (no (unknown) (unknown) Chronic back pain (units (unknown) date) unknown) (unknown) (no (unknown) (unknown) Chronic knee pain (units (unknown) date) unknown) (unknown) (no (unknown) (unknown) Closed head (units (un known) date) injury unknown) (unknown) (no (unknown) (unknown) Confirmed (units (unkn own) date) 08/22/22] unknown) (unknown) (no (unknown) (unknown) Const (units (unkno wn) date) unknown) (unknown) (no (unknown) (unknown) : 1955 (units (unknown) date) Acct:[id number] unknown) (unknown) (no (unknown) (unknown) Dept at (units (unkno wn) date) . unknown) (unknown) (no (unknown) (unknown) Details: (units (unkno wn) date) unknown) (unknown) (no (unknown) (unknown) Documented By: (units (unknown) date) Dustin Barrientos MD unknown) 08/22/22 1617 (unknown) (no (unknown) (unknown) Draft (units (unkno wn) date) unknown) (unknown) (no (unknown) (unknown) Duration/pattern: (units (unknown) date) [] unknown) (unknown) (no (unknown) (unknown) Ears: hearing (units ( unknown) date) grossly normal unknown) bilaterally and external ears normal (unknown) (no (unknown) (unknown) Effort + (units (unkno wn) date) Inspection: normal unknown) respiratory effort, able to speak in complete (unknown) (no (unknown) (unknown) Exam (units (unkno wn) date) unknown) (unknown) (no (unknown) (unknown) Family History (units (unknown) date) (Reviewed 06/19/22 unknown) @ 13:08 by Lela Tam PA-C) (unknown) (no (unknown) (unknown) Father History of (units (unknown) date) heart disease unknown) (unknown) (no (unknown) (unknown) [facility] unknown) (unknown) (no (unknown) (unknown) Fractures (units (unkn own) date) unknown) (unknown) (no (unknown) (unknown) General: (units (unkno wn) date) cooperative, unknown) healthy appearing, comfortable and no acute distress (unknown) (no (unknown) (unknown) HENMT (units (unkno wn) date) unknown) (unknown) (no (unknown) (unknown) HPI (units (unkno wn) date) unknown) (unknown) (no (unknown) (unknown) HTN (units (unkno wn) date) (hypertension) unknown) (unknown) (no (unknown) (unknown) Head: (units (unkno wn) date) normocephalic and unknown) atraumatic (unknown) (no (unknown) (unknown) Health Management (units (unknown) date) reviewed with unknown) patient: Yes (unknown) (no (unknown) (unknown) Health Management (units (unknown) date) unknown) (unknown) (no (unknown) (unknown) Health (units (unkno wn) date) maintenance unknown) measures reviewed and chart updated as necessary. See intake (unknown) (no (unknown) (unknown) Hearing loss (units (u nknown) date) unknown) (unknown) (no (unknown) (unknown) Height 6 ft (units (un known) date) unknown) (unknown) (no (unknown) (unknown) History of (units (unk nown) date) mandibular surgery unknown) (-1974) (unknown) (no (unknown) (unknown) Hx of (units (unkno wn) date) cholecystectomy unknown) (unknown) (no (unknown) (unknown) Hyperlipidemia (units (unknown) date) unknown) (unknown) (no (unknown) (unknown) In addition, we (units (unknown) date) discussed []. unknown) (unknown) (no (unknown) (unknown) Intake Note: (units (u nknown) date) unknown) (unknown) (no (unknown) (unknown) Intake performed (units (unknown) date) by: Dorina Mckeon unknown) (unknown) (no (unknown) (unknown) Intake (units (unkno wn) date) unknown) (unknown) (no (unknown) (unknown) Intake- Clincial (units (unknown) date) Staff unknown) (unknown) (no (unknown) (unknown) Internal Medicine (units (unknown) date) Office Visit unknown) (unknown) (no (unknown) (unknown) Judgment: (units (unkn own) date) judgment good unknown) (unknown) (no (unknown) (unknown) Loc: [facility] (units (unkno wn) date) unknown) (unknown) (no (unknown) (unknown) Medical History (units (unknown) date) (Reviewed 06/19/22 unknown) @ 13:08 by Lela Tam PA-C) (unknown) (no (unknown) (unknown) Medications (units (un known) date) unknown) (unknown) (no (unknown) (unknown) Mental Status: (units (unknown) date) mental status unknown) grossly normal (unknown) (no (unknown) (unknown) Mood: congruent (units (unknown) date) mood unknown) (unknown) (no (unknown) (unknown) Nose: external (units (unknown) date) nose normal and unknown) nares normal (unknown) (no (unknown) (unknown) Onset/history: [] (units (unknown) date) unknown) (unknown) (no (unknown) (unknown) Orientation: (units (u nknown) date) oriented x3 unknown) (unknown) (no (unknown) (unknown) Oxygen Delivery (units (unknown) date) Method room air unknown) (unknown) (no (unknown) (unknown) PFSH (units (unkno wn) date) unknown) (unknown) (no (unknown) (unknown) Patient: (units (unkno wn) date) BevShannon guzman Kiesha unknown) MR#: [id number] (unknown) (no (unknown) (unknown) Penicillins (units (un known) date) [PENICILLINS] unknown) Allergy (Unknown, Verified 08/22/22 16:20) (unknown) (no (unknown) (unknown) Position Sitting (units (unknown) date) unknown) (unknown) (no (unknown) (unknown) Psych (units (unkno wn) date) unknown) (unknown) (no (unknown) (unknown) Pulse 62 (units (unkno wn) date) unknown) (unknown) (no (unknown) (unknown) Pulse Oximetry (units (unknown) date) (%) 98 unknown) (unknown) (no (unknown) (unknown) Pulse Source (units (u nknown) date) Monitor unknown) (unknown) (no (unknown) (unknown) ROS ? Patient (units ( unknown) date) reports: No fever, unknown) chills, presyncope, ALOC, []. (unknown) (no (unknown) (unknown) ROS (units (unkno wn) date) unknown) (unknown) (no (unknown) (unknown) Reason For Visit (units (unknown) date) unknown) (unknown) (no (unknown) (unknown) Resp (units (unkno wn) date) unknown) (unknown) (no (unknown) (unknown) Shoulder pain (units ( unknown) date) unknown) (unknown) (no (unknown) (unknown) Signed By: (units (unk nown) date) unknown) (unknown) (no (unknown) (unknown) Smoking Status: (units (unknown) date) Never smoker unknown) (unknown) (no (unknown) (unknown) Speech and (units (unk nown) date) Movement: speech unknown) and movement normal (unknown) (no (unknown) (unknown) Surgical History (units (unknown) date) (Reviewed 06/19/22 unknown) @ 13:08 by Lela Tam PA-C) (unknown) (no (unknown) (unknown) TID PRN pain #100 (units (unknown) date) mL 06/19/22 [Rx unknown) Confirmed 08/22/22] (unknown) (no (unknown) (unknown) This note may (units ( unknown) date) have been all or unknown) partially generated using voice recognition (unknown) (no (unknown) (unknown) Thought Content: (units (unknown) date) normal unknown) (unknown) (no (unknown) (unknown) Thought Process: (units (unknown) date) normal unknown) (unknown) (no (unknown) (unknown) Tinnitus (units (unkno wn) date) unknown) (unknown) (no (unknown) (unknown) Tobacco + (units (unkn own) date) Substance Use unknown) (unknown) (no (unknown) (unknown) Tobacco Status (units (unknown) date) unknown) (unknown) (no (unknown) (unknown) Unknown (units (unkno wn) date) unknown) (unknown) (no (unknown) (unknown) Visit Reasons: (units (unknown) date) Ear Infection unknown) Right Ear (unknown) (no (unknown) (unknown) Vitals (units (unkno wn) date) unknown) (unknown) (no (unknown) (unknown) Weight 201 lb 8 (units (unknown) date) oz unknown) (unknown) (no (unknown) (unknown) atorvastatin 10 (units (unknown) date) mg tablet 10 mg PO unknown) DAILY #90 tabs 09/01/20 [Rx Confirmed (unknown) (no (unknown) (unknown) celecoxib 200 mg (units (unknown) date) capsule 200 mg PO unknown) DAILY #90 caps 06/21/22 [Rx Confirmed (unknown) (no (unknown) (unknown) covid- 4 done (units ( unknown) date) unknown) (unknown) (no (unknown) (unknown) cscope- appt end (units (unknown) date) of september unknown) (unknown) (no (unknown) (unknown) erythromycin base (units (unknown) date) Allergy (Verified unknown) 08/22/22 16:20) (unknown) (no (unknown) (unknown) f/u [facility] er for rt (units (unknown) date) ear pain - today unknown) seems like its better, still has some (unknown) (no (unknown) (unknown) flu- done (units (unkn own) date) unknown) (unknown) (no (unknown) (unknown) gabapentin 300 mg (units (unknown) date) capsule 300 mg PO unknown) BEDTIME #90 caps 12/20/21 [Rx Confirmed (unknown) (no (unknown) (unknown) have occurred. If (units (unknown) date) there are any unknown) questions, please contact the Medical Records (unknown) (no (unknown) (unknown) lidocaine HCl 2 % (units (unknown) date) mucosal solution unknown) (Lidocaine Viscous) 1 applic mucous membrane (unknown) (no (unknown) (unknown) lisinopril 10 mg (units (unknown) date) tablet 10 mg PO unknown) DAILY #90 tabs 08/01/20 [Rx Confirmed 08/22/22] (unknown) (no (unknown) (unknown) loperamide 2 mg (units (unknown) date) tablet 2 mg PO QID unknown) PRN 05/15/20 [History Confirmed 08/22/22] (unknown) (no (unknown) (unknown) may occur. (units (unk nown) date) Occasional unknown) wrong-word or 'sound-alike' substitutions may have (unknown) (no (unknown) (unknown) muffling going on (units (unknown) date) unknown) (unknown) (no (unknown) (unknown) note and HCM tab (units (unknown) date) for details. unknown) (unknown) (no (unknown) (unknown) occurred due to [...] where these substitutions (unknown) (no (unknown) (unknown) ref- ent was seen (units (unknown) date) in [facility] unknown) (unknown) (no (unknown) (unknown) sentences and no (units (unknown) date) audible wheezes unknown) (unknown) (no (unknown) (unknown) software. 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 Result panel 116 (unknown) (no (unknown) (unknown) (no value) (units (unk nown) date) unknown) (unknown) (no (unknown) (unknown) (1) Serous otitis (units (unknown) date) media: unknown) (unknown) (no (unknown) (unknown) 08/22/22 (units (unkno wn) date) unknown) (unknown) (no (unknown) (unknown) 08/22/22] (units (unkn own) date) unknown) (unknown) (no (unknown) (unknown) 08/26/22 1612 (units ( unknown) date) unknown) (unknown) (no (unknown) (unknown) 16:20 (units (unkno wn) date) unknown) (unknown) (no (unknown) (unknown) [id number] (units (unkno wn) date) unknown) (unknown) (no (unknown) (unknown) Add'l Plan (units (unk nown) date) Details unknown) (unknown) (no (unknown) (unknown) Add'l Plan*: (units (u nknown) date) unknown) (unknown) (no (unknown) (unknown) Affect: normal (units (unknown) date) affect unknown) (unknown) (no (unknown) (unknown) Age/Sex: 67 / M (units (unknown) date) Date of Service: unknown) (unknown) (no (unknown) (unknown) All systems (units (un known) date) reviewed + are unknown) unremarkable except as noted in HPI and below (unknown) (no (unknown) (unknown) Allergies (units (unkn own) date) unknown) (unknown) (no (unknown) (unknown) [place], [place] (units ( unknown) date) [id number] unknown) (unknown) (no (unknown) (unknown) Anesthesia (units (unk nown) date) unknown) (unknown) (no (unknown) (unknown) Appearance: (units (un known) date) grossly normal unknown) (unknown) (no (unknown) (unknown) Assessment + Plan (units (unknown) date) unknown) (unknown) (no (unknown) (unknown) Attending Dr: (units ( unknown) date) Dustin Barrientos MD unknown) (unknown) (no (unknown) (unknown) Attitude: (units (unkn own) date) cooperative unknown) (unknown) (no (unknown) (unknown) BMI 27.3 (units (unkno wn) date) unknown) (unknown) (no (unknown) (unknown) BP 135/94 H (units (un known) date) unknown) (unknown) (no (unknown) (unknown) Blood [...] (unknown) (unknown) Chief Complaint: (units (unknown) date) Your complaint unknown) (unknown) (no (unknown) (unknown) Chronic back pain (units (unknown) date) unknown) (unknown) (no (unknown) (unknown) Chronic knee pain (units (unknown) date) unknown) (unknown) (no (unknown) (unknown) Chronicity: acute (units (unknown) date) Laterality: right unknown) Recurrence: non-recurrent (unknown) (no (unknown) (unknown) Closed head (units (un known) date) injury unknown) (unknown) (no (unknown) (unknown) Confirmed (units (unkn own) date) 08/22/22] unknown) (unknown) (no (unknown) (unknown) Const (units (unkno wn) date) unknown) (unknown) (no (unknown) (unknown) : 1955 (units (unknown) date) Acct:[id number] unknown) (unknown) (no (unknown) (unknown) Dept at (units (unkno wn) date) . unknown) (unknown) (no (unknown) (unknown) Details: (units (unkno wn) date) unknown) (unknown) (no (unknown) (unknown) Documented By: (units (unknown) date) Dustin Barrientos MD unknown) 08/22/22 1617 (unknown) (no (unknown) (unknown) Ears: hearing (units (u nknown) date) grossly normal unknown) bilaterally, external ears normal, TM normal on the (unknown) (no (unknown) (unknown) Effort + (units (unkno wn) date) Inspection: normal unknown) respiratory effort, able to speak in complete (unknown) (no (unknown) (unknown) Exam (units (unkno wn) date) unknown) (unknown) (no (unknown) (unknown) Family History (units (unknown) date) (Reviewed 06/19/22 unknown) @ 13:08 by Lela Tam PA-C) (unknown) (no (unknown) (unknown) Father History of (units (unknown) date) heart disease unknown) (unknown) (no (unknown) (unknown) [facility] ([facility] date[facility] unknown) (unknown) (no (unknown) (unknown) Fractures (units (unkn own) date) unknown) (unknown) (no (unknown) (unknown) General: (units (unkno wn) date) cooperative, unknown) healthy appearing, comfortable and no acute distress (unknown) (no (unknown) (unknown) HENMT (units (unkno wn) date) unknown) (unknown) (no (unknown) (unknown) HPI (units (unkno wn) date) unknown) (unknown) (no (unknown) (unknown) HTN (units (unkno wn) date) (hypertension) unknown) (unknown) (no (unknown) (unknown) Head: (units (unkno wn) date) normocephalic and unknown) atraumatic (unknown) (no (unknown) (unknown) Health Management (units (unknown) date) reviewed with unknown) patient: Yes (unknown) (no (unknown) (unknown) Health Management (units (unknown) date) unknown) (unknown) (no (unknown) (unknown) Health (units (unkno wn) date) maintenance unknown) measures reviewed and chart updated as necessary. See intake (unknown) (no (unknown) (unknown) Hearing loss (units [...] (unknown) Intake performed (units (unknown) date) by: Dorina Mckeon unknown) (unknown) (no (unknown) (unknown) Intake (units (unkno wn) date) unknown) (unknown) (no (unknown) (unknown) Intake- Clincial (units (unknown) date) Staff unknown) (unknown) (no (unknown) (unknown) Internal Medicine (units (unknown) date) Office Visit unknown) (unknown) (no (unknown) (unknown) Judgment: (units (unkn own) date) judgment good unknown) (unknown) (no (unknown) (unknown) Loc: [facility] (units (unkno wn) date) unknown) (unknown) (no (unknown) (unknown) Medical History (units (unknown) date) (Reviewed 06/19/22 unknown) @ 13:08 by Lela Tam PA-C) (unknown) (no (unknown) (unknown) Medications (units (un known) date) unknown) (unknown) (no (unknown) (unknown) Mental Status: (units (unknown) date) mental status unknown) grossly normal (unknown) (no (unknown) (unknown) Mood: congruent (units (unknown) date) mood unknown) (unknown) (no (unknown) (unknown) Nose, and Throat (units (unknown) date) (otolaryngology) unknown) to discuss the aphthous ulcers and I (unknown) (no (unknown) (unknown) Nose: external (units (unknown) date) nose normal and unknown) nares normal (unknown) (no (unknown) (unknown) Orientation: (units (u nknown) date) oriented x3 unknown) (unknown) (no (unknown) (unknown) Oxygen Delivery (units (unknown) date) Method room air unknown) (unknown) (no (unknown) (unknown) PFSH (units (unkno wn) date) unknown) (unknown) (no (unknown) (unknown) Patient has a (units ( unknown) date) subtle serous unknown) otitis media on the right side. This may be due to (unknown) (no (unknown) (unknown) Patient: (units (unkno wn) date) Shannon Mcnally unknown) MR#: [id number] (unknown) (no (unknown) (unknown) Penicillins (units (un known) date) [PENICILLINS] unknown) Allergy (Unknown, Verified 08/22/22 16:20) (unknown) (no (unknown) (unknown) Plan (units (unkno wn) date) unknown) (unknown) (no (unknown) (unknown) Position Sitting (units (unknown) date) unknown) (unknown) (no (unknown) (unknown) Psych (units (unkno wn) date) unknown) (unknown) (no (unknown) (unknown) Pulse 62 (units (unkno wn) date) unknown) (unknown) (no (unknown) (unknown) Pulse Oximetry (units (unknown) date) (%) 98 unknown) (unknown) (no (unknown) (unknown) Pulse Source (units (u nknown) date) Monitor unknown) (unknown) (no (unknown) (unknown) Qualified (units (unkn own) date) Code(s): H65.01 - unknown) Acute serous otitis media, right ear (unknown) (no (unknown) (unknown) Qualifiers: (units (un known) date) unknown) (unknown) (no (unknown) (unknown) ROS (units (unkno wn) date) unknown) (unknown) (no (unknown) (unknown) Reason For Visit (units (unknown) date) unknown) (unknown) (no (unknown) (unknown) Resp (units (unkno wn) date) unknown) (unknown) (no (unknown) (unknown) Seen in the (units (un known) date) walk-in clinic on unknown) 06/19/2022 complaining of numerous aphthous (unknown) (no (unknown) (unknown) Shoulder pain (units ( unknown) date) unknown) (unknown) (no (unknown) (unknown) Signed By: (units (unk nown) date) <Electronically unknown) signed by Dustin Barrientos MD> (unknown) (no (unknown) (unknown) Signed (units (unkno wn) date) unknown) (unknown) (no (unknown) (unknown) Smoking Status: (units (unknown) date) Never smoker unknown) (unknown) (no (unknown) (unknown) Speech and (units (unk nown) date) Movement: speech unknown) and movement normal (unknown) (no (unknown) (unknown) Surgical History (units (unknown) date) (Reviewed 06/19/22 unknown) @ 13:08 by Lela Tam PA-C) (unknown) (no (unknown) (unknown) TID PRN pain #100 (units (unknown) date) mL 06/19/22 [Rx unknown) Confirmed 08/22/22] (unknown) (no (unknown) (unknown) This note may (units ( unknown) date) have been all or unknown) partially generated using voice recognition (unknown) (no (unknown) (unknown) Thought Content: (units (unknown) date) normal unknown) (unknown) (no (unknown) (unknown) Thought Process: (units (unknown) date) normal unknown) (unknown) (no (unknown) (unknown) Tinnitus (units (unkno wn) date) unknown) (unknown) (no (unknown) (unknown) Tobacco + (units (unkn own) date) Substance Use unknown) (unknown) (no (unknown) (unknown) Tobacco Status (units (unknown) date) unknown) (unknown) (no (unknown) (unknown) Unknown (units (unkno wn) date) unknown) (unknown) (no (unknown) (unknown) Visit Reasons: (units (unknown) date) Ear Infection unknown) Right Ear (unknown) (no (unknown) (unknown) Vitals (units (unkno wn) date) unknown) (unknown) (no (unknown) (unknown) Weight 201 lb 8 (units (unknown) date) oz unknown) (unknown) (no (unknown) (unknown) atorvastatin 10 (units (unknown) date) mg tablet 10 mg PO unknown) DAILY #90 tabs 09/01/20 [Rx Confirmed (unknown) (no (unknown) (unknown) celecoxib 200 mg (units (unknown) date) capsule 200 mg PO unknown) DAILY #90 caps 06/21/22 [Rx Confirmed (unknown) (no (unknown) (unknown) clinic, but it (units (unknown) date) was not his main unknown) concern. Reports no vertigo, ear exudate, (unknown) (no (unknown) (unknown) covid- 4 done (units ( unknown) date) unknown) (unknown) (no (unknown) (unknown) cscope- appt end (units (unknown) date) of september unknown) (unknown) (no (unknown) (unknown) encouraged him to (units (unknown) date) bring this matter unknown) up to them if it did not resolve within the (unknown) (no (unknown) (unknown) erythromycin base (units (unknown) date) Allergy (Verified unknown) 08/22/22 16:20) (unknown) (no (unknown) (unknown) external ear skin (units (unknown) date) changes. unknown) (unknown) (no (unknown) (unknown) f/u [facility] er for rt (units (unknown) date) ear pain - today unknown) seems like its better, still has some (unknown) (no (unknown) (unknown) flu- done (units (unkn own) date) unknown) (unknown) (no (unknown) (unknown) gabapentin 300 mg (units (unknown) date) capsule 300 mg PO unknown) BEDTIME #90 caps 12/20/21 [Rx Confirmed (unknown) (no (unknown) (unknown) have occurred. If (units (unknown) date) there are any unknown) questions, please contact the Medical Records (unknown) (no (unknown) (unknown) hearing. This was (units (unknown) date) present to some unknown) degree when he was assessed in the walk-in (unknown) (no (unknown) (unknown) left, EAC's (units (un known) date) normal and TM unknown) abnormal wth effusion serous on the right (unknown) (no (unknown) (unknown) lidocaine HCl 2 % (units (unknown) date) mucosal solution unknown) (Lidocaine Viscous) 1 applic mucous membrane (unknown) (no (unknown) (unknown) lisinopril 10 mg (units (unknown) date) tablet 10 mg PO unknown) DAILY #90 tabs 08/01/20 [Rx Confirmed 08/22/22] (unknown) (no (unknown) (unknown) loperamide 2 mg (units (unknown) date) tablet 2 mg PO QID unknown) PRN 05/15/20 [History Confirmed 08/22/22] (unknown) (no (unknown) (unknown) may occur. (units (unk nown) date) Occasional unknown) wrong-word or 'sound-alike' substitutions may have (unknown) (no (unknown) (unknown) muffling going on (units (unknown) date) unknown) (unknown) (no (unknown) (unknown) next month or so. (units (unknown) date) unknown) (unknown) (no (unknown) (unknown) note and HCM tab (units (unknown) date) for details. unknown) (unknown) (no (unknown) (unknown) occurred due to (units (unknown) date) the inherent unknown) limitations of voice recognition software. Please (unknown) (no (unknown) (unknown) omeprazole 20 mg (units (unknown) date) capsule,delayed unknown) release 20 mg PO DAILY #90 caps 08/01/20 [Rx (unknown) (no (unknown) (unknown) practically no (units (unknown) date) medical therapies unknown) available for resolving this matter any faster (unknown) (no (unknown) (unknown) read the note (units ( unknown) date) carefully and unknown) recognize, using context, where these substitutions (unknown) (no (unknown) (unknown) ref- ent was seen (units (unknown) date) in [facility] unknown) (unknown) (no (unknown) (unknown) resolved but he (units (unknown) date) continues to have unknown) a pain in the right ear accompanied by muffled (unknown) (no (unknown) (unknown) resolving (units (unkn own) date) infection, unknown) underlying eustachian tube dysfunction, or recent use of (unknown) (no (unknown) (unknown) sentences and no (units (unknown) date) audible wheezes unknown) (unknown) (no (unknown) (unknown) software. 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 (units (unkn own) date) Discussed the unknown) pathophysiology of serous otitis media. There are (unknown) (no (unknown) (unknown) than it would do (units (unknown) date) so without unknown) intervention. He is already established with Ears, (unknown) (no (unknown) (unknown) ulcers. Treated (units (unknown) date) with antivirals unknown) and oral steroids. Ulcers have largely Result panel 117 (unknown) (no (unknown) (unknown) (no value) (units (unk nown) date) unknown) (unknown) (no (unknown) (unknown) (1) Serous otitis (units (unknown) date) media: unknown) (unknown) (no (unknown) (unknown) ADDENDUM (units (u nknown) date) unknown) (unknown) (no (unknown) (unknown) 08/22/22 (units (unkno wn) date) unknown) (unknown) (no (unknown) (unknown) 08/22/22] (units (unkn own) date) unknown) (unknown) (no (unknown) (unknown) 08/26/22 1612 (units ( unknown) date) unknown) (unknown) (no (unknown) (unknown) 08/29/22 [id number] (units ( unknown) date) unknown) (unknown) (no (unknown) (unknown) 16:20 (units (unkno wn) date) unknown) (unknown) (no (unknown) (unknown) [id number] (units (unkno wn) date) unknown) (unknown) (no (unknown) (unknown) Add'l Plan (units (unk nown) date) Details unknown) (unknown) (no (unknown) (unknown) Add'l Plan*: (units (u nknown) date) unknown) (unknown) (no (unknown) (unknown) Addendum (units (unkno wn) date) Documented By: unknown) Dustin Barrientos MD (unknown) (no (unknown) (unknown) Addendum Signed (units (unknown) date) By: unknown) <Electronically signed by Dustin Barrientos MD> (unknown) (no (unknown) (unknown) Affect: normal (units (unknown) date) affect unknown) (unknown) (no (unknown) (unknown) Age/Sex: 67 / M (units (unknown) date) Date of Service: unknown) (unknown) (no (unknown) (unknown) All systems (units (un known) date) reviewed + are unknown) unremarkable except as noted in HPI and below (unknown) (no (unknown) (unknown) Allergies (units (unkn own) date) unknown) (unknown) (no (unknown) (unknown) JAZ Victor (units ( unknown) date) [id number] unknown) (unknown) (no (unknown) (unknown) Anesthesia (units (unk nown) date) unknown) (unknown) (no (unknown) (unknown) Appearance: (units (un known) date) grossly normal unknown) (unknown) (no (unknown) (unknown) Assessment + Plan (units (unknown) date) unknown) (unknown) (no (unknown) (unknown) Attending Dr: (units ( unknown) date) Dustin Barrientos MD unknown) (unknown) (no (unknown) (unknown) Attitude: (units (unkn own) date) cooperative unknown) (unknown) (no (unknown) (unknown) BMI 27.3 (units (unkno wn) date) unknown) (unknown) (no (unknown) (unknown) BP 135/94 H (units (un known) date) unknown) (unknown) (no (unknown) (unknown) Blood [...] (unknown) (unknown) Chief Complaint: (units (unknown) date) Your complaint unknown) (unknown) (no (unknown) (unknown) Chronic back pain (units (unknown) date) unknown) (unknown) (no (unknown) (unknown) Chronic knee pain (units (unknown) date) unknown) (unknown) (no (unknown) (unknown) Chronicity: acute (units (unknown) date) Laterality: right unknown) Recurrence: non-recurrent (unknown) (no (unknown) (unknown) Closed head (units (un known) date) injury unknown) (unknown) (no (unknown) (unknown) Confirmed (units (unkn own) date) 08/22/22] unknown) (unknown) (no (unknown) (unknown) Const (units (unkno wn) date) unknown) (unknown) (no (unknown) (unknown) Correction of (units ( unknown) date) [employer] [facility] unknown) error: CC should be 'ear complaint' (unknown) (no (unknown) (unknown) : 1955 (units (unknown) date) Acct:[id number] unknown) (unknown) (no (unknown) (unknown) Dept at (units (unkno wn) date) . unknown) (unknown) (no (unknown) (unknown) Details: (units (unkno wn) date) unknown) (unknown) (no (unknown) (unknown) Documented By: (units (unknown) date) Dustin Barrientos MD unknown) 08/22/22 1617 (unknown) (no (unknown) (unknown) Ears: hearing (units (u nknown) date) grossly normal unknown) bilaterally, external ears normal, TM normal on the (unknown) (no (unknown) (unknown) Effort + (units (unkno wn) date) Inspection: normal unknown) respiratory effort, able to speak in complete (unknown) (no (unknown) (unknown) Exam (units (unkno wn) date) unknown) (unknown) (no (unknown) (unknown) Family History (units (unknown) date) (Reviewed 06/19/22 unknown) @ 13:08 by Lela Tam PA-C) (unknown) (no (unknown) (unknown) Father History of (units (unknown) date) heart disease unknown) (unknown) (no (unknown) (unknown) [facility]) (unknown) (no (unknown) (unknown) Fractures (units (unkn own) date) unknown) (unknown) (no (unknown) (unknown) General: (units (unkno wn) date) cooperative, unknown) healthy appearing, comfortable and no acute distress (unknown) (no (unknown) (unknown) HENMT (units (unkno wn) date) unknown) (unknown) (no (unknown) (unknown) HPI (units (unkno wn) date) unknown) (unknown) (no (unknown) (unknown) HTN (units (unkno wn) date) (hypertension) unknown) (unknown) (no (unknown) (unknown) Head: (units (unkno wn) date) normocephalic and unknown) atraumatic (unknown) (no (unknown) (unknown) Health Management (units (unknown) date) reviewed with unknown) patient: Yes (unknown) (no (unknown) (unknown) Health Management (units (unknown) date) unknown) (unknown) (no (unknown) (unknown) Health (units (unkno wn) date) maintenance unknown) measures reviewed and chart updated as necessary. See intake (unknown) (no (unknown) (unknown) Hearing loss (units [...] (unknown) Intake performed (units (unknown) date) by: Dorina Mckeon unknown) (unknown) (no (unknown) (unknown) Intake (units (unkno wn) date) unknown) (unknown) (no (unknown) (unknown) Intake- Clincial (units (unknown) date) Staff unknown) (unknown) (no (unknown) (unknown) Internal Medicine (units (unknown) date) Office Visit unknown) (unknown) (no (unknown) (unknown) Judgment: (units (unkn own) date) judgment good unknown) (unknown) (no (unknown) (unknown) Loc: [facility] (units (unkno wn) date) unknown) (unknown) (no (unknown) (unknown) Medical History (units (unknown) date) (Reviewed 06/19/22 unknown) @ 13:08 by Lela aTm PA-C) (unknown) (no (unknown) (unknown) Medications (units (un known) date) unknown) (unknown) (no (unknown) (unknown) Mental Status: (units (unknown) date) mental status unknown) grossly normal (unknown) (no (unknown) (unknown) Mood: congruent (units (unknown) date) mood unknown) (unknown) (no (unknown) (unknown) Nose, and Throat (units (unknown) date) (otolaryngology) unknown) to discuss the aphthous ulcers and I (unknown) (no (unknown) (unknown) Nose: external (units (unknown) date) nose normal and unknown) nares normal (unknown) (no (unknown) (unknown) Orientation: (units (u nknown) date) oriented x3 unknown) (unknown) (no (unknown) (unknown) Oxygen Delivery (units (unknown) date) Method room air unknown) (unknown) (no (unknown) (unknown) PFSH (units (unkno wn) date) unknown) (unknown) (no (unknown) (unknown) Patient has a (units ( unknown) date) subtle serous unknown) otitis media on the right side. This may be due to (unknown) (no (unknown) (unknown) Patient: (units (unkno wn) date) BevYuebonnie Pop unknown) MR#: [id number] (unknown) (no (unknown) (unknown) Penicillins (units (un known) date) [PENICILLINS] unknown) Allergy (Unknown, Verified 08/22/22 16:20) (unknown) (no (unknown) (unknown) Plan (units (unkno wn) date) unknown) (unknown) (no (unknown) (unknown) Position Sitting (units (unknown) date) unknown) (unknown) (no (unknown) (unknown) Psych (units (unkno wn) date) unknown) (unknown) (no (unknown) (unknown) Pulse 62 (units (unkno wn) date) unknown) (unknown) (no (unknown) (unknown) Pulse Oximetry (units (unknown) date) (%) 98 unknown) (unknown) (no (unknown) (unknown) Pulse Source (units (u nknown) date) Monitor unknown) (unknown) (no (unknown) (unknown) Qualified (units (unkn own) date) Code(s): H65.01 - unknown) Acute serous otitis media, right ear (unknown) (no (unknown) (unknown) Qualifiers: (units (un known) date) unknown) (unknown) (no (unknown) (unknown) ROS (units (unkno wn) date) unknown) (unknown) (no (unknown) (unknown) Reason For Visit (units (unknown) date) unknown) (unknown) (no (unknown) (unknown) Resp (units (unkno wn) date) unknown) (unknown) (no (unknown) (unknown) Seen in the (units (un known) date) walk-in clinic on unknown) 06/19/2022 complaining of numerous aphthous (unknown) (no (unknown) (unknown) Shoulder pain (units ( unknown) date) unknown) (unknown) (no (unknown) (unknown) Signed By: (units (unk nown) date) <Electronically unknown) signed by Dustin Barrientos MD> (unknown) (no (unknown) (unknown) Signed with (units (un known) date) Addenda unknown) (unknown) (no (unknown) (unknown) Smoking Status: (units (unknown) date) Never smoker unknown) (unknown) (no (unknown) (unknown) Speech and (units (unk nown) date) Movement: speech unknown) and movement normal (unknown) (no (unknown) (unknown) Surgical History (units (unknown) date) (Reviewed 06/19/22 unknown) @ 13:08 by Lela Tam PA-C) (unknown) (no (unknown) (unknown) TID PRN pain #100 (units (unknown) date) mL 06/19/22 [Rx unknown) Confirmed 08/22/22] (unknown) (no (unknown) (unknown) This note may (units ( unknown) date) have been all or unknown) partially generated using voice recognition (unknown) (no (unknown) (unknown) Thought Content: (units (unknown) date) normal unknown) (unknown) (no (unknown) (unknown) Thought Process: (units (unknown) date) normal unknown) (unknown) (no (unknown) (unknown) Tinnitus (units (unkno wn) date) unknown) (unknown) (no (unknown) (unknown) Tobacco + (units (unkn own) date) Substance Use unknown) (unknown) (no (unknown) (unknown) Tobacco Status (units (unknown) date) unknown) (unknown) (no (unknown) (unknown) Unknown (units (unkno wn) date) unknown) (unknown) (no (unknown) (unknown) Visit Reasons: (units (unknown) date) Ear Infection unknown) Right Ear (unknown) (no (unknown) (unknown) Vitals (units (unkno wn) date) unknown) (unknown) (no (unknown) (unknown) Weight 201 lb 8 (units (unknown) date) oz unknown) (unknown) (no (unknown) (unknown) atorvastatin 10 (units (unknown) date) mg tablet 10 mg PO unknown) DAILY #90 tabs 09/01/20 [Rx Confirmed (unknown) (no (unknown) (unknown) celecoxib 200 mg (units (unknown) date) capsule 200 mg PO unknown) DAILY #90 caps 06/21/22 [Rx Confirmed (unknown) (no (unknown) (unknown) clinic, but it (units (unknown) date) was not his main unknown) concern. Reports no vertigo, ear exudate, (unknown) (no (unknown) (unknown) covid- 4 done (units ( unknown) date) unknown) (unknown) (no (unknown) (unknown) cscope- appt end (units (unknown) date) of september unknown) (unknown) (no (unknown) (unknown) encouraged him to (units (unknown) date) bring this matter unknown) up to them if it did not resolve within the (unknown) (no (unknown) (unknown) erythromycin base (units (unknown) date) Allergy (Verified unknown) 08/22/22 16:20) (unknown) (no (unknown) (unknown) external ear skin (units (unknown) date) changes. unknown) (unknown) (no (unknown) (unknown) f/u [facility] er for rt (units (unknown) date) ear pain - today unknown) seems like its better, still has some (unknown) (no (unknown) (unknown) flu- done (units (unkn own) date) unknown) (unknown) (no (unknown) (unknown) gabapentin 300 mg (units (unknown) date) capsule 300 mg PO unknown) BEDTIME #90 caps 12/20/21 [Rx Confirmed (unknown) (no (unknown) (unknown) have occurred. If (units (unknown) date) there are any unknown) questions, please contact the Medical Records (unknown) (no (unknown) (unknown) hearing. This was (units (unknown) date) present to some unknown) degree when he was assessed in the walk-in (unknown) (no (unknown) (unknown) left, EAC's (units (un known) date) normal and TM unknown) abnormal wth effusion serous on the right (unknown) (no (unknown) (unknown) lidocaine HCl 2 % (units (unknown) date) mucosal solution unknown) (Lidocaine Viscous) 1 applic mucous membrane (unknown) (no (unknown) (unknown) lisinopril 10 mg (units (unknown) date) tablet 10 mg PO unknown) DAILY #90 tabs 08/01/20 [Rx Confirmed 08/22/22] (unknown) (no (unknown) (unknown) loperamide 2 mg (units (unknown) date) tablet 2 mg PO QID unknown) PRN 05/15/20 [History Confirmed 08/22/22] (unknown) (no (unknown) (unknown) may occur. (units (unk nown) date) Occasional unknown) wrong-word or 'sound-alike' substitutions may have (unknown) (no (unknown) (unknown) muffling going on (units (unknown) date) unknown) (unknown) (no (unknown) (unknown) next month or so. (units (unknown) date) unknown) (unknown) (no (unknown) (unknown) note and HCM tab (units (unknown) date) for details. unknown) (unknown) (no (unknown) (unknown) occurred due to (units (unknown) date) the inherent unknown) limitations of voice recognition software. Please (unknown) (no (unknown) (unknown) omeprazole 20 mg (units (unknown) date) capsule,delayed unknown) release 20 mg PO DAILY #90 caps 08/01/20 [Rx (unknown) (no (unknown) (unknown) practically no (units (unknown) date) medical therapies unknown) available for resolving this matter any faster (unknown) (no (unknown) (unknown) read the note (units ( unknown) date) carefully and unknown) recognize, using context, where these substitutions (unknown) (no (unknown) (unknown) ref- ent was seen (units (unknown) date) in [facility] unknown) (unknown) (no (unknown) (unknown) resolved but he (units (unknown) date) continues to have unknown) a pain in the right ear accompanied by muffled (unknown) (no (unknown) (unknown) resolving (units (unkn own) date) infection, unknown) underlying eustachian tube dysfunction, or recent use of (unknown) (no (unknown) (unknown) sentences and no (units (unknown) date) audible wheezes unknown) (unknown) (no (unknown) (unknown) software. 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 (units (unkn own) date) Discussed the unknown) pathophysiology of serous otitis media. There are (unknown) (no (unknown) (unknown) than it would do (units (unknown) date) so without unknown) intervention. He is already established with Ears, (unknown) (no (unknown) (unknown) ulcers. Treated (units (unknown) date) with antivirals unknown) and oral steroids. Ulcers have largely Social History date description facility 2022-06-19 00:00 Never smoked tobacco (finding) [facility] 2022-08-22 00:00 Never smoked tobacco (finding) [facility] Vital Signs date measurement value units [...] 90.71 kg 2022-06-19 00:00 weight_standard 199.98 lb 2022-08-22 00:00 BMI 27.3 kg/m2 2022-08-22 00:00 BP_diastolic 94 mmHg 2022-08-22 00:00 BP_systolic 135 mmHg 2022-08-22 00:00 heart_rate 62 /min 2022-08-22 00:00 height_metric 182.88 cm 2022-08-22 00:00 height_standard 72 in 2022-08-22 00:00 o2_saturation 98 % 2022-08-22 00:00 weight_metric 91.39 kg 2022-08-22 00:00 weight_standard 201.48 lb
[2022-09-12] MEDS ORDERED: ALBUTEROL 1 PUFF INH STA (03:50)
[2022-09-12] MEDS ORDERED: DEXAMETHASONE 10 MG/ML VIAL IVP STA (03:51)
[2022-09-12] MEDS ORDERED: BENZONATATE 100 MG CAPSULE PO STA (03:51)
[2022-09-12] MEDS ORDERED: KETOROLAC 15 MG/ML VIAL IVP STA (03:51)
[2022-09-12] MEDS ORDERED: ONDANSETRON ODT 4 MG TABLET TL STA (04:03)
[2022-09-12 05:23] VITALS: BP 124/76
--- NOTE | 2022-09-12 07:55 | XRAY Report ---
PROCEDURE: Chest 1 View X-Ray INDICATIONS: chest pain/cough TECHNIQUE: One view of the chest was acquired. COMPARISON: None. FINDINGS: Surgical changes and devices: None. Lungs and pleura: No pleural effusions or pneumothorax. Lungs are clear. Mediastinum: Mediastinal contours appear normal. Heart size is normal. Bones and chest wall: No suspicious bony lesions. Overlying soft tissues appear unremarkable. IMPRESSION: No acute cardiopulmonary process. Reviewed by: José Miguel Douglas on 09/12/2022 7:54 AM [facility] Approved by: José Miguel Douglas on 09/12/2022 7:54 AM [facility] Station ID: [id number]
== END 2022-09-12 05:23 | disposition home or self-care (01) ==
LOC: ED 02:58
DX: J40 Bronchitis, not specified as acute or chronic (principal); R07.9 Chest pain, unspecified; R11.0 Nausea; I10 Essential (primary) hypertension
CPT/HCPCS: 36415; 71045; 93005; 94640; 94664; 96374; 99284; A9270; Q0162

== ENCOUNTER 2023-01-03 15:13 | Emergency (ER) | payer MEDICARE, OTHER ==
[2023-01-03 15:23] VITALS: BP 145/79
[2023-01-03 15:37] LABS: BASOPHILS % (AUTO) 0.4 %; EOSINOPHILS # (AUTO) 0.2 10^3/uL (0.0-0.7); EOSINOPHILS % (AUTO) 1.7 %; HCT - HEMATOCRIT 43.8 % (42.0-52.0); HGB - HEMOGLOBIN 15.4 g/dL (14.0-18.0); LYMPHOCYTES # (AUTO) 3.1 10^3/uL (1.5-3.5); MEAN CORPUSCULAR HEMOGLOBIN 30.7 pg (27.0-31.0); MEAN CORPUSCULAR HGB CONC 35.2 g/dL (32.0-36.0); MEAN CORPUSCULAR VOLUME 87.4 fL (80.0-94.0); MEAN PLATELET VOLUME 10.7 fL (7.4-11.4); MONOCYTES # (AUTO) 0.7 10^3/uL (0.0-1.0); MONOCYTES % (AUTO) 7.6 %; NEUTROPHILS # (AUTO) 5.1 10^3/uL (1.5-6.6); NEUTROPHILS % (AUTO) 56.1 %; PLT - PLATELET COUNT 173 10^3/uL (130-450); RED BLOOD COUNT 5.01 10^6/uL (4.70-6.10); RED CELL DISTRIBUTION WIDTH 12.4 % (12.0-15.0); WHITE BLOOD COUNT 9.2 x10^3/uL (4.8-10.8)
--- OUTSIDE RECORDS SUMMARY | 2023-01-03 15:45 | EXTERNAL MEDICAL SUMMARY RPT | Continuity of Care Document ---
Author Name Unknown Address [address] [place] [address] Phone Organization [place] Address [address] [place] [address] Phone Care Team Providers Care Joiner Apprentice Name Role Phone Dustin Barrientos Unavailable Unavailable Medications date description facility 2022-12-26 00:00 [facility] 2022-12-14 00:00 [facility] 2022-12-26 00:00 [facility] 2022-12-26 00:00 [facility] Problems date description facility 2022-12-26 00:00 Encounter for annual physical e [facility] Results/Labs test date author facility value unit interpretation Result panel 1 (unknown) (no date) (unknown) (unknown) (no value) (units unknown) (unknown) (unknown) (no date) (unknown) (unknown) 12/26/22 (units unknown) (unknown) (unknown) (no date) (unknown) (unknown) [id number] (units unknown) (unknown) (unknown) (no date) (unknown) (unknown) 67 year old leann villavicencio presents to clinic for annual medicare wellness exam. (units unknown) (unknown) (unknown) (no date) (unknown) (unknown) Age/Sex: 67 / M Date of Service: (units unknown) (unknown) (unknown) (no date) (unknown) (unknown) Allergies (units unknown) (unknown) (unknown) (no date) (unknown) (unknown) [place] [address] (units unknown) (unknown) (unknown) (no date) (unknown) (unknown) Anesthesia (units unknown) (unknown) (unknown) (no date) (unknown) (unknown) Attending Dr: Taon Bryant MD (units unknown) (unknown) (unknown) (no date) (unknown) (unknown) Brother Deceas ed Cancer (units unknown) (unknown) (unknown) (no date) (unknown) (unknown) Bunion of left foot (units unknown) (unknown) (unknown) (no date) (unknown) (unknown) Chicken pox (units unknown) (unknown) (unknown) (no date) (unknown) (unknown) Chronic back pain (u nits unknown) (unknown) (unknown) (no date) (unknown) (unknown) Chronic knee pain (u nits unknown) (unknown) (unknown) (no date) (unknown) (unknown) Closed head injury ( units unknown) (unknown) (unknown) (no date) (unknown) (unknown) : 5 Acct:[id number] (units unknown) (unknown) (unknown) (no date) (unknown) (unknown) Dept at . (units unknown) (unknown) (unknown) (no date) (unknown) (unknown) Documented By: Toan Bryant MD 12/26/22 1643 (units unknown) (unknown) (unknown) (no date) (unknown) (unknown) Draft (units unknown) (unknown) (unknown) (no date) (unknown) (unknown) Family History (units unknown) (unknown) (unknown) (no date) (unknown) (unknown) Father History of heart disease (units unknown) (unknown) (unknown) (no date) (unknown) (unknown) [facility] (units unknown) (unknown) (unknown) (no date) (unknown) (unknown) Fractures (units unknown) (unknown) (unknown) (no date) (unknown) (unknown) HTN (hypertension) ( units unknown) (unknown) (unknown) (no date) (unknown) (unknown) Health Managem ent reviewed with patient: Yes (units unknown) (unknown) (unknown) (no date) (unknown) (unknown) Health Management (u nits unknown) (unknown) (unknown) (no date) (unknown) (unknown) Hearing loss (units unknown) (unknown) (unknown) (no date) (unknown) (unknown) History of mandibular surgery (-1974) (units unknown) (unknown) (unknown) (no date) (unknown) (unknown) Hx of cholecystectomy (units unknown) (unknown) (unknown) (no date) (unknown) (unknown) Hyperlipidemia (unit s unknown) (unknown) (unknown) (no date) (unknown) (unknown) Intake Note: (units unknown) (unknown) (unknown) (no date) (unknown) (unknown) Intake perform ed by: Ingris Daugherty (units unknown) (unknown) (unknown) (no date) (unknown) (unknown) Intake (units unknown) (unknown) (unknown) (no date) (unknown) (unknown) [facility]- [place] [facility] (units unknown) (unknown) (unknown) (no date) (unknown) (unknown) Internal Medic ine Office Visit (units unknown) (unknown) (unknown) (no date) (unknown) (unknown) Loc: [facility] (units unknown) (unknown) (unknown) (no date) (unknown) (unknown) Medical Histor y (units unknown) (unknown) (unknown) (no date) (unknown) (unknown) PFSH (units unknown) (unknown) (unknown) (no date) (unknown) (unknown) Patient: Nikia Pablo MR#: [id number] (units unknown) (unknown) (unknown) (no date) (unknown) (unknown) Penicillins [PENICILLINS] Allergy (Unknown, Verified 12/26/22 16:43) (units unknown) (unknown) (unknown) (no date) (unknown) (unknown) Reason For Visit (un its unknown) (unknown) (unknown) (no date) (unknown) (unknown) Shoulder pain (units unknown) (unknown) (unknown) (no date) (unknown) (unknown) Signed By: (units unknown) (unknown) (unknown) (no date) (unknown) (unknown) Smoking Status : Never smoker (units unknown) (unknown) (unknown) (no date) (unknown) (unknown) Surgical Histo ry (units unknown) (unknown) (unknown) (no date) (unknown) (unknown) This note may have been all or partially generated using voice recognition (units unknown) (unknown) (unknown) (no date) (unknown) (unknown) Tinnitus (units unknown) (unknown) (unknown) (no date) (unknown) (unknown) Tobacco + Subs tance Use (units unknown) (unknown) (unknown) (no date) (unknown) (unknown) Tobacco Status (unit s unknown) (unknown) (unknown) (no date) (unknown) (unknown) Unknown (units unknown) (unknown) (unknown) (no date) (unknown) (unknown) Visit Reasons: Annual Medicare Well Visit (units unknown) (unknown) (unknown) (no date) (unknown) (unknown) erythromycin b ase Allergy (Verified 12/26/22 16:43) (units unknown) (unknown) (unknown) (no date) (unknown) (unknown) have occurred. If there are any questions, please contact the Medical Records (units unknown) (unknown) (unknown) (no date) (unknown) (unknown) may occur. Occasional wrong-word or 'sound-alike' substitutions may have (units unknown) (unknown) (unknown) (no date) (unknown) (unknown) occurred due t o the inherent limitations of voice recognition software. Please (units unknown) (unknown) (unknown) (no date) (unknown) (unknown) read the note carefully and recognize, using context, where these substitutions (units unknown) (unknown) (unknown) (no date) (unknown) (unknown) software. Alth ough every effort is made to edit content, president mortgage company errors (units unknown) (unknown) Result panel 2 (unknown) (no date) (unknown) (unknown) (no value) (units unknown) (unknown) (unknown) (no date) (unknown) (unknown) 12/26/22 (units unknown) (unknown) (unknown) (no date) (unknown) (unknown) 12/26/22] (units unknown) (unknown) (unknown) (no date) (unknown) (unknown) 1. Little inte rest or pleasure in doing things: not at all (units unknown) (unknown) (unknown) (no date) (unknown) (unknown) 16:49 (units unknown) (unknown) (unknown) (no date) (unknown) (unknown) 2. Feeling emigdio n, depressed, or hopeless: not at all (units unknown) (unknown) (unknown) (no date) (unknown) (unknown) [id number] (units unknown) (unknown) (unknown) (no date) (unknown) (unknown) 3. Trouble fal ling or staying asleep, or sleeping too much: several days (units unknown) (unknown) (unknown) (no date) (unknown) (unknown) 4. Feeling tir ed or having little energy: not at all (units unknown) (unknown) (unknown) (no date) (unknown) (unknown) 5. Poor appeti te or overeating: several days (units unknown) (unknown) (unknown) (no date) (unknown) (unknown) 6. Feeling bad about yourself - or that you are a failure or have let yourself (units unknown) (unknown) (unknown) (no date) (unknown) (unknown) 67 year old leann villavicencio presents to clinic for annual medicare wellness exam. (units unknown) (unknown) (unknown) (no date) (unknown) (unknown) 7. Trouble concentrating on things, such as reading the newspaper or watching (units unknown) (unknown) (unknown) (no date) (unknown) (unknown) 8. Moving or speaking so slowly that other people could have noticed? - Or the (units unknown) (unknown) (unknown) (no date) (unknown) (unknown) 9. Thoughts th at you would be better off or of hurting yourself in some (units unknown) (unknown) (unknown) (no date) (unknown) (unknown) Age/Sex: 67 / M Date of Service: (units unknown) (unknown) (unknown) (no date) (unknown) (unknown) Allergies (units unknown) (unknown) (unknown) (no date) (unknown) (unknown) [place] [address] (units unknown) (unknown) (unknown) (no date) (unknown) (unknown) Anesthesia (units unknown) (unknown) (unknown) (no date) (unknown) (unknown) Attending Dr: Toan Bryant MD (units unknown) (unknown) (unknown) (no date) (unknown) (unknown) BMI 27.8 (units unknown) (unknown) (unknown) (no date) (unknown) (unknown) BP 130/80 (units unknown) (unknown) (unknown) (no date) (unknown) (unknown) Blood Pressure Location Lt brachial (units unknown) (unknown) (unknown) (no date) (unknown) (unknown) Brother Deceas ed Cancer (units unknown) (unknown) (unknown) (no date) (unknown) (unknown) Bunion of left foot (units unknown) (unknown) (unknown) (no date) (unknown) (unknown) Chicken pox (units unknown) (unknown) (unknown) (no date) (unknown) (unknown) Chronic back pain (u nits unknown) (unknown) (unknown) (no date) (unknown) (unknown) Chronic knee pain (u nits unknown) (unknown) (unknown) (no date) (unknown) (unknown) Closed head injury ( units unknown) (unknown) (unknown) (no date) (unknown) (unknown) Confirmed 12/26/22] (units unknown) (unknown) (unknown) (no date) (unknown) (unknown) : 5 Acct:[id number] (units unknown) (unknown) (unknown) (no date) (unknown) (unknown) Depression/Bip olar (159/160/161/169/177 ) (units unknown) (unknown) (unknown) (no date) (unknown) (unknown) Dept at . (units unknown) (unknown) (unknown) (no date) (unknown) (unknown) Documented By: Toan Bryant MD 12/26/22 1643 (units unknown) (unknown) (unknown) (no date) (unknown) (unknown) Draft (units unknown) (unknown) (unknown) (no date) (unknown) (unknown) Family History (units unknown) (unknown) (unknown) (no date) (unknown) (unknown) Father History of heart disease (units unknown) (unknown) (unknown) (no date) (unknown) (unknown) [facility] (units unknown) (unknown) (unknown) (no date) (unknown) (unknown) Fractures (units unknown) (unknown) (unknown) (no date) (unknown) (unknown) HTN (hypertension) ( units unknown) (unknown) (unknown) (no date) (unknown) (unknown) Health Managem ent reviewed with patient: Yes (units unknown) (unknown) (unknown) (no date) (unknown) (unknown) Health Management (u nits unknown) (unknown) (unknown) (no date) (unknown) (unknown) Hearing loss (units unknown) (unknown) (unknown) (no date) (unknown) (unknown) Height 6 ft (units unknown) (unknown) (unknown) (no date) (unknown) (unknown) History of mandibular surgery (-1974) (units unknown) (unknown) (unknown) (no date) (unknown) (unknown) Hx of cholecystectomy (units unknown) (unknown) (unknown) (no date) (unknown) (unknown) Hyperlipidemia (unit s unknown) (unknown) (unknown) (no date) (unknown) (unknown) If score is 2 or greater, continue (units unknown) (unknown) (unknown) (no date) (unknown) (unknown) Intake Note: (units unknown) (unknown) (unknown) (no date) (unknown) (unknown) Intake perform ed by: Ingris Daugherty (units unknown) (unknown) (unknown) (no date) (unknown) (unknown) Intake (units unknown) (unknown) (unknown) (no date) (unknown) (unknown) Intake- [place] [facility] (units unknown) (unknown) (unknown) (no date) (unknown) (unknown) Internal Medic ine Office Visit (units unknown) (unknown) (unknown) (no date) (unknown) (unknown) Loc: [facility] (units unknown) (unknown) (unknown) (no date) (unknown) (unknown) Medical Histor y (units unknown) (unknown) (unknown) (no date) (unknown) (unknown) Medications (units unknown) (unknown) (unknown) (no date) (unknown) (unknown) Over the last 2 weeks, how often have you been bothered by any of the following (units unknown) (unknown) (unknown) (no date) (unknown) (unknown) Oxygen Deliver y Method room air (units unknown) (unknown) (unknown) (no date) (unknown) (unknown) PFSH (units unknown) (unknown) (unknown) (no date) (unknown) (unknown) PHQ-2 (units unknown) (unknown) (unknown) (no date) (unknown) (unknown) PHQ-2/PHQ-9 (units unknown) (unknown) (unknown) (no date) (unknown) (unknown) Parking Permit ... #1 ea 10/31/22 [Rx Confirmed 12/26/22] (units unknown) (unknown) (unknown) (no date) (unknown) (unknown) Patient: Nikia Pablo MR#: [id number] (units unknown) (unknown) (unknown) (no date) (unknown) (unknown) Penicillins [PENICILLINS] Allergy (Unknown, Verified 12/26/22 16:43) (units unknown) (unknown) (unknown) (no date) (unknown) (unknown) Position Sitting (un its unknown) (unknown) (unknown) (no date) (unknown) (unknown) Pulse 52 L (units unknown) (unknown) (unknown) (no date) (unknown) (unknown) Pulse Oximetry (%) 98 (units unknown) (unknown) (unknown) (no date) (unknown) (unknown) Pulse Source Monitor (units unknown) (unknown) (unknown) (no date) (unknown) (unknown) Quality Reporting (u nits unknown) (unknown) (unknown) (no date) (unknown) (unknown) Questionnaires (unit s unknown) (unknown) (unknown) (no date) (unknown) (unknown) Reason For Visit (un its unknown) (unknown) (unknown) (no date) (unknown) (unknown) Shoulder pain (units unknown) (unknown) (unknown) (no date) (unknown) (unknown) Signed By: (units unknown) (unknown) (unknown) (no date) (unknown) (unknown) Smoking Status : Never smoker (units unknown) (unknown) (unknown) (no date) (unknown) (unknown) Source: Develo ped by Drs. Elder Roa, Giselle Chris, Silvestre Verduzco (units unknown) (unknown) (unknown) (no date) (unknown) (unknown) Surgical Histo ry (units unknown) (unknown) (unknown) (no date) (unknown) (unknown) TID PRN pain # 100 mL 12/11/22 [Rx Confirmed 12/26/22] (units unknown) (unknown) (unknown) (no date) (unknown) (unknown) Temp 97.1 F L (units unknown) (unknown) (unknown) (no date) (unknown) (unknown) Temp Source Te mporal Artery Scan (units unknown) (unknown) (unknown) (no date) (unknown) (unknown) This note may have been all or partially generated using voice recognition (units unknown) (unknown) (unknown) (no date) (unknown) (unknown) Tinnitus (units unknown) (unknown) (unknown) (no date) (unknown) (unknown) Tobacco + Subs tance Use (units unknown) (unknown) (unknown) (no date) (unknown) (unknown) Tobacco Status (unit s unknown) (unknown) (unknown) (no date) (unknown) (unknown) Total score: 0 (unit s unknown) (unknown) (unknown) (no date) (unknown) (unknown) Total score: 2 (unit s unknown) (unknown) (unknown) (no date) (unknown) (unknown) Unknown (units unknown) (unknown) (unknown) (no date) (unknown) (unknown) Visit Reasons: Annual Medicare Well Visit (units unknown) (unknown) (unknown) (no date) (unknown) (unknown) Vitals (units unknown) (unknown) (unknown) (no date) (unknown) (unknown) Weight 205 lb (units unknown) (unknown) (unknown) (no date) (unknown) (unknown) and colleagues , with an educational michele from [employer] (units unknown) (unknown) (unknown) (no date) (unknown) (unknown) and your famil y down: not at all (units unknown) (unknown) (unknown) (no date) (unknown) (unknown) atorvastatin 1 0 mg tablet 10 mg PO DAILY #90 tabs 09/01/20 [Rx Confirmed (units unknown) (unknown) (unknown) (no date) (unknown) (unknown) celecoxib 200 mg capsule 200 mg PO DAILY #90 caps 12/14/22 [Rx Confirmed (units unknown) (unknown) (unknown) (no date) (unknown) (unknown) erythromycin b ase Allergy (Verified 12/26/22 16:43) (units unknown) (unknown) (unknown) (no date) (unknown) (unknown) gabapentin 300 mg capsule 300 mg PO BEDTIME #90 caps 12/20/21 [Rx Confirmed (units unknown) (unknown) (unknown) (no date) (unknown) (unknown) have occurred. If there are any questions, please contact the Medical Records (units unknown) (unknown) (unknown) (no date) (unknown) (unknown) lidocaine HCl 2 % mucosal solution (Lidocaine Viscous) 1 applic mucous membrane (units unknown) (unknown) (unknown) (no date) (unknown) (unknown) lisinopril 10 mg tablet 10 mg PO DAILY #90 tabs 08/01/20 [Rx Confirmed 12/26/22] (units unknown) (unknown) (unknown) (no date) (unknown) (unknown) loperamide 2 m g tablet 2 mg PO QID PRN 05/15/20 [History Confirmed 12/26/22] (units unknown) (unknown) (unknown) (no date) (unknown) (unknown) may occur. Occasional wrong-word or 'sound-alike' substitutions may have (units unknown) (unknown) (unknown) (no date) (unknown) (unknown) more than usua l: not at all (units unknown) (unknown) (unknown) (no date) (unknown) (unknown) occurred due t o the inherent limitations of voice recognition software. Please (units unknown) (unknown) (unknown) (no date) (unknown) (unknown) omeprazole 20 mg capsule,delayed release 20 mg PO DAILY #90 caps 08/01/20 [Rx (units unknown) (unknown) (unknown) (no date) (unknown) (unknown) opposite - yash ng so fidgety or restless that you have been moving around a lot (units unknown) (unknown) (unknown) (no date) (unknown) (unknown) problems? (units unknown) (unknown) (unknown) (no date) (unknown) (unknown) read the note carefully and recognize, using context, where these substitutions (units unknown) (unknown) (unknown) (no date) (unknown) (unknown) software. Alth ough every effort is made to edit content, president mortgage [employer] errors (units unknown) (unknown) (unknown) (no date) (unknown) (unknown) television: no t at all (units unknown) (unknown) (unknown) (no date) (unknown) (unknown) way: not at all (uni ts unknown) (unknown) Result panel 3 (unknown) (no date) (unknown) (unknown) (no value) (units unknown) (unknown) (unknown) (no date) (unknown) (unknown) 12/26/22 (units unknown) (unknown) (unknown) (no date) (unknown) (unknown) 12/26/22] (units unknown) (unknown) (unknown) (no date) (unknown) (unknown) 1. Little inte rest or pleasure in doing things: not at all (units unknown) (unknown) (unknown) (no date) (unknown) (unknown) 16:49 (units unknown) (unknown) (unknown) (no date) (unknown) (unknown) 2. Feeling emigdio n, depressed, or hopeless: not at all (units unknown) (unknown) (unknown) (no date) (unknown) (unknown) [id number] (units unknown) (unknown) (unknown) (no date) (unknown) (unknown) 3. Trouble fal ling or staying asleep, or sleeping too much: several days (units unknown) (unknown) (unknown) (no date) (unknown) (unknown) 4. Feeling tir ed or having little energy: not at all (units unknown) (unknown) (unknown) (no date) (unknown) (unknown) 5. Poor appeti te or overeating: several days (units unknown) (unknown) (unknown) (no date) (unknown) (unknown) 6. Feeling bad about yourself - or that you are a failure or have let yourself (units unknown) (unknown) (unknown) (no date) (unknown) (unknown) 67 year old leann villavicencio presents to clinic for annual medicare wellness exam. (units unknown) (unknown) (unknown) (no date) (unknown) (unknown) 7. Trouble concentrating on things, such as reading the newspaper or watching (units unknown) (unknown) (unknown) (no date) (unknown) (unknown) 8. Moving or speaking so slowly that other people could have noticed? - Or the (units unknown) (unknown) (unknown) (no date) (unknown) (unknown) 9. Thoughts th at you would be better off or of hurting yourself in some (units unknown) (unknown) (unknown) (no date) (unknown) (unknown) Age/Sex: 67 / M Date of Service: (units unknown) (unknown) (unknown) (no date) (unknown) (unknown) Allergies (units unknown) (unknown) (unknown) (no date) (unknown) (unknown) [place] [address] (units unknown) (unknown) (unknown) (no date) (unknown) (unknown) Anesthesia (units unknown) (unknown) (unknown) (no date) (unknown) (unknown) Attending Dr: Toan Bryant MD (units unknown) (unknown) (unknown) (no date) (unknown) (unknown) BMI 27.8 (units unknown) (unknown) (unknown) (no date) (unknown) (unknown) BP 130/80 (units unknown) (unknown) (unknown) (no date) (unknown) (unknown) Blood Pressure Location Lt brachial (units unknown) (unknown) (unknown) (no date) (unknown) (unknown) Brother Meryl ed Cancer (units unknown) (unknown) (unknown) (no date) (unknown) (unknown) Bunion of left foot (units unknown) (unknown) (unknown) (no date) (unknown) (unknown) Chicken pox (units unknown) (unknown) (unknown) (no date) (unknown) (unknown) Chronic back pain (u nits unknown) (unknown) (unknown) (no date) (unknown) (unknown) Chronic knee pain (u nits unknown) (unknown) (unknown) (no date) (unknown) (unknown) Closed head injury ( units unknown) (unknown) (unknown) (no date) (unknown) (unknown) Confirmed 12/26/22] (units unknown) (unknown) (unknown) (no date) (unknown) (unknown) : 5 Acct:[id number] (units unknown) (unknown) (unknown) (no date) (unknown) (unknown) Depression/Bip olar (159/160/161/169/177 ) (units unknown) (unknown) (unknown) (no date) (unknown) (unknown) Dept at . (units unknown) (unknown) (unknown) (no date) (unknown) (unknown) Documented By: Toan Bryant MD 12/26/22 [id number] (units unknown) (unknown) (unknown) (no date) (unknown) (unknown) Draft (units unknown) (unknown) (unknown) (no date) (unknown) (unknown) Family History (units unknown) (unknown) (unknown) (no date) (unknown) (unknown) Father History of heart disease (units unknown) (unknown) (unknown) (no date) (unknown) (unknown) [facility] (units unknown) (unknown) (unknown) (no date) (unknown) (unknown) Fractures (units unknown) (unknown) (unknown) (no date) (unknown) (unknown) HTN (hypertension) ( units unknown) (unknown) (unknown) (no date) (unknown) (unknown) Health Managem ent reviewed with patient: Yes (units unknown) (unknown) (unknown) (no date) (unknown) (unknown) Health Management (u nits unknown) (unknown) (unknown) (no date) (unknown) (unknown) Hearing loss (units unknown) (unknown) (unknown) (no date) (unknown) (unknown) Height 6 ft (units unknown) (unknown) (unknown) (no date) (unknown) (unknown) History of mandibular surgery (-1974) (units unknown) (unknown) (unknown) (no date) (unknown) (unknown) Hx of cholecystectomy (units unknown) (unknown) (unknown) (no date) (unknown) (unknown) Hyperlipidemia (unit s unknown) (unknown) (unknown) (no date) (unknown) (unknown) If score is 2 or greater, continue (units unknown) (unknown) (unknown) (no date) (unknown) (unknown) Intake Note: (units unknown) (unknown) (unknown) (no date) (unknown) (unknown) Intake perform ed by: Ingris Daugherty (units unknown) (unknown) (unknown) (no date) (unknown) (unknown) Intake (units unknown) (unknown) (unknown) (no date) (unknown) (unknown) Intake- [place] [facility] (units unknown) (unknown) (unknown) (no date) (unknown) (unknown) Internal Medic ine Office Visit (units unknown) (unknown) (unknown) (no date) (unknown) (unknown) Loc: [facility] (units unknown) (unknown) (unknown) (no date) (unknown) (unknown) Medical Histor y (units unknown) (unknown) (unknown) (no date) (unknown) (unknown) Medications (units unknown) (unknown) (unknown) (no date) (unknown) (unknown) Over the last 2 weeks, how often have you been bothered by any of the following (units unknown) (unknown) (unknown) (no date) (unknown) (unknown) Oxygen Deliver y Method room air (units unknown) (unknown) (unknown) (no date) (unknown) (unknown) PFSH (units unknown) (unknown) (unknown) (no date) (unknown) (unknown) PHQ-2 (units unknown) (unknown) (unknown) (no date) (unknown) (unknown) PHQ-2/PHQ-9 (units unknown) (unknown) (unknown) (no date) (unknown) (unknown) Parking Permit ... #1 ea 10/31/22 [Rx Confirmed 12/26/22] (units unknown) (unknown) (unknown) (no date) (unknown) (unknown) Patient: Nikia Pablo MR#: [id number] (units unknown) (unknown) (unknown) (no date) (unknown) (unknown) Penicillins [PENICILLINS] Allergy (Unknown, Verified 12/26/22 16:43) (units unknown) (unknown) (unknown) (no date) (unknown) (unknown) Position Sitting (un its unknown) (unknown) (unknown) (no date) (unknown) (unknown) Pulse 52 L (units unknown) (unknown) (unknown) (no date) (unknown) (unknown) Pulse Oximetry (%) 98 (units unknown) (unknown) (unknown) (no date) (unknown) (unknown) Pulse Source Monitor (units unknown) (unknown) (unknown) (no date) (unknown) (unknown) Quality Reporting (u nits unknown) (unknown) (unknown) (no date) (unknown) (unknown) Questionnaires (unit s unknown) (unknown) (unknown) (no date) (unknown) (unknown) Reason For Visit (un its unknown) (unknown) (unknown) (no date) (unknown) (unknown) Shoulder pain (units unknown) (unknown) (unknown) (no date) (unknown) (unknown) Signed By: (units unknown) (unknown) (unknown) (no date) (unknown) (unknown) Smoking Status : Never smoker (units unknown) (unknown) (unknown) (no date) (unknown) (unknown) Source: [facility] by Drs. Elder Roa, Giselle Chris, Silvestre Verduzco (units unknown) (unknown) (unknown) (no date) (unknown) (unknown) Surgical Histo ry (units unknown) (unknown) (unknown) (no date) (unknown) (unknown) TID PRN pain # 100 mL 06/19/22 [Rx Confirmed 12/26/22] (units unknown) (unknown) (unknown) (no date) (unknown) (unknown) Temp 97.1 F L (units unknown) (unknown) (unknown) (no date) (unknown) (unknown) Temp Source Te mporal Artery Scan (units unknown) (unknown) (unknown) (no date) (unknown) (unknown) This note may have been all or partially generated using voice recognition (units unknown) (unknown) (unknown) (no date) (unknown) (unknown) Tinnitus (units unknown) (unknown) (unknown) (no date) (unknown) (unknown) Tobacco + Subs tance Use (units unknown) (unknown) (unknown) (no date) (unknown) (unknown) Tobacco Status (unit s unknown) (unknown) (unknown) (no date) (unknown) (unknown) Total score: 0 (unit s unknown) (unknown) (unknown) (no date) (unknown) (unknown) Total score: 2 (unit s unknown) (unknown) (unknown) (no date) (unknown) (unknown) Unknown (units unknown) (unknown) (unknown) (no date) (unknown) (unknown) Visit Reasons: Annual Medicare Well Visit (units unknown) (unknown) (unknown) (no date) (unknown) (unknown) Vitals (units unknown) (unknown) (unknown) (no date) (unknown) (unknown) Weight 205 lb (units unknown) (unknown) (unknown) (no date) (unknown) (unknown) and colleagues , with an educational michele from [employer] (units unknown) (unknown) (unknown) (no date) (unknown) (unknown) and your famil y down: not at all (units unknown) (unknown) (unknown) (no date) (unknown) (unknown) atorvastatin 1 0 mg tablet 10 mg PO DAILY #90 tabs 09/01/20 [Rx Confirmed (units unknown) (unknown) (unknown) (no date) (unknown) (unknown) celecoxib 200 mg capsule 200 mg PO DAILY #90 caps 12/14/22 [Rx Confirmed (units unknown) (unknown) (unknown) (no date) (unknown) (unknown) erythromycin b ase Allergy (Verified 12/26/22 16:43) (units unknown) (unknown) (unknown) (no date) (unknown) (unknown) gabapentin 300 mg capsule 300 mg PO BEDTIME #90 caps 12/20/21 [Rx Confirmed (units unknown) (unknown) (unknown) (no date) (unknown) (unknown) have occurred. If there are any questions, please contact the Medical Records (units unknown) (unknown) (unknown) (no date) (unknown) (unknown) lidocaine HCl 2 % mucosal solution (Lidocaine Viscous) 1 applic mucous membrane (units unknown) (unknown) (unknown) (no date) (unknown) (unknown) lisinopril 10 mg tablet 10 mg PO DAILY #90 tabs 08/01/20 [Rx Confirmed 12/26/22] (units unknown) (unknown) (unknown) (no date) (unknown) (unknown) loperamide 2 m g tablet 2 mg PO QID PRN 05/15/20 [History Confirmed 12/26/22] (units unknown) (unknown) (unknown) (no date) (unknown) (unknown) may occur. Occasional wrong-word or 'sound-alike' substitutions may have (units unknown) (unknown) (unknown) (no date) (unknown) (unknown) more than usua l: not at all (units unknown) (unknown) (unknown) (no date) (unknown) (unknown) occurred due t o the inherent limitations of voice recognition software. Please (units unknown) (unknown) (unknown) (no date) (unknown) (unknown) omeprazole 20 mg capsule,delayed release 20 mg PO DAILY #90 caps 08/01/20 [Rx (units unknown) (unknown) (unknown) (no date) (unknown) (unknown) opposite - yash ng so fidgety or restless that you have been moving around a lot (units unknown) (unknown) (unknown) (no date) (unknown) (unknown) problems? (units unknown) (unknown) (unknown) (no date) (unknown) (unknown) read the note carefully and recognize, using context, where these substitutions (units unknown) (unknown) (unknown) (no date) (unknown) (unknown) software. Alth ough every effort is made to edit content, president mortgage company errors (units unknown) (unknown) (unknown) (no date) (unknown) (unknown) television: no t at all (units unknown) (unknown) (unknown) (no date) (unknown) (unknown) way: not at all (uni ts unknown) (unknown) Result panel 4 (unknown) (no date) (unknown) (unknown) (no value) (units unknown) (unknown) (unknown) (no date) (unknown) (unknown) (1) Hyperlipidemia: (units unknown) (unknown) (unknown) (no date) (unknown) (unknown) (2) HTN (hypertension): (units unknown) (unknown) (unknown) (no date) (unknown) (unknown) (3) Chronic ba ck pain: (units unknown) (unknown) (unknown) (no date) (unknown) (unknown) (4) Vitamin D insufficiency: (units unknown) (unknown) (unknown) (no date) (unknown) (unknown) (primary) hypertension, M54.9 - Dorsalgia, unspecified, Z00.00 - Encounter for (units unknown) (unknown) (unknown) (no date) (unknown) (unknown) - Encounter fo r screening for malignant neoplasm of prostate (units unknown) (unknown) (unknown) (no date) (unknown) (unknown) 12/26/22 (units unknown) (unknown) (unknown) (no date) (unknown) (unknown) 12/26/22] (units unknown) (unknown) (unknown) (no date) (unknown) (unknown) 1. Little inte rest or pleasure in doing things: not at all (units unknown) (unknown) (unknown) (no date) (unknown) (unknown) 16:49 (units unknown) (unknown) (unknown) (no date) (unknown) (unknown) 2. Feeling emigdio n, depressed, or hopeless: not at all (units unknown) (unknown) (unknown) (no date) (unknown) (unknown) [id number] (units unknown) (unknown) (unknown) (no date) (unknown) (unknown) 3. Trouble fal ling or staying asleep, or sleeping too much: several days (units unknown) (unknown) (unknown) (no date) (unknown) (unknown) 30 mg once arlene ly over the next 2-4 weeks trial. Would follow-up with patient in (units unknown) (unknown) (unknown) (no date) (unknown) (unknown) 4. Feeling tir ed or having little energy: not at all (units unknown) (unknown) (unknown) (no date) (unknown) (unknown) 5. Poor appeti te or overeating: several days (units unknown) (unknown) (unknown) (no date) (unknown) (unknown) 6. Feeling bad about yourself - or that you are a failure or have let yourself (units unknown) (unknown) (unknown) (no date) (unknown) (unknown) 67 year old leann villvaicencio presents to clinic for annual medicare wellness exam. (units unknown) (unknown) (unknown) (no date) (unknown) (unknown) 67-year-old leann villavicencio initially here for Medicare annual wellness but changed to a (units unknown) (unknown) (unknown) (no date) (unknown) (unknown) 7. Trouble concentrating on things, such as reading the newspaper or watching (units unknown) (unknown) (unknown) (no date) (unknown) (unknown) 8. Moving or speaking so slowly that other people could have noticed? - Or the (units unknown) (unknown) (unknown) (no date) (unknown) (unknown) 9. Thoughts th at you would be better off or of hurting yourself in some (units unknown) (unknown) (unknown) (no date) (unknown) (unknown) Age/Sex: 67 / M Date of Service: (units unknown) (unknown) (unknown) (no date) (unknown) (unknown) Alert, tearful when discussing his brother who related to [place], limited eye (units unknown) (unknown) (unknown) (no date) (unknown) (unknown) Allergies (units unknown) (unknown) (unknown) (no date) (unknown) (unknown) Also with significant lower back pain presumptively related to a combination of (units unknown) (unknown) (unknown) (no date) (unknown) (unknown) [place] [id number] (units unknown) (unknown) (unknown) (no date) (unknown) (unknown) Anesthesia (units unknown) (unknown) (unknown) (no date) (unknown) (unknown) Apply once to twice daily after clotrimazole cream for the next 1-2 weeks if (units unknown) (unknown) (unknown) (no date) (unknown) (unknown) Apply to itchy red rash for the next 1-2 weeks. 1 applic topical TID 30 (units unknown) (unknown) (unknown) (no date) (unknown) (unknown) Assessment + Plan (u nits unknown) (unknown) (unknown) (no date) (unknown) (unknown) Attending Dr: Toan Bryant MD (units unknown) (unknown) (unknown) (no date) (unknown) (unknown) BMI 27.8 (units unknown) (unknown) (unknown) (no date) (unknown) (unknown) BP 130/80 (units unknown) (unknown) (unknown) (no date) (unknown) (unknown) Blood Pressure Location Lt brachial (units unknown) (unknown) (unknown) (no date) (unknown) (unknown) Brother Deceas ed Cancer (units unknown) (unknown) (unknown) (no date) (unknown) (unknown) Bunion of left foot (units unknown) (unknown) (unknown) (no date) (unknown) (unknown) Chicken pox (units unknown) (unknown) (unknown) (no date) (unknown) (unknown) Chief Complaint (uni ts unknown) (unknown) (unknown) (no date) (unknown) (unknown) Chief Complain t: Multiple complaints (units unknown) (unknown) (unknown) (no date) (unknown) (unknown) Chronic back pain (u nits unknown) (unknown) (unknown) (no date) (unknown) (unknown) Chronic knee pain (u nits unknown) (unknown) (unknown) (no date) (unknown) (unknown) Closed head injury ( units unknown) (unknown) (unknown) (no date) (unknown) (unknown) Complete Blood Count AUTO DIFF 12/26/22 E55.9 - Vitamin D deficiency, (units unknown) (unknown) (unknown) (no date) (unknown) (unknown) Comprehensive Metabolic Panel 12/26/22 E55.9 - Vitamin D deficiency, (units unknown) (unknown) (unknown) (no date) (unknown) (unknown) Confirmed 12/26/22] (units unknown) (unknown) (unknown) (no date) (unknown) (unknown) : 5 Acct:[id number] (units unknown) (unknown) (unknown) (no date) (unknown) (unknown) Depression/Bip olar (159/160/161/169/177 ) (units unknown) (unknown) (unknown) (no date) (unknown) (unknown) Dept at . (units unknown) (unknown) (unknown) (no date) (unknown) (unknown) Details: (units unknown) (unknown) (unknown) (no date) (unknown) (unknown) Documented By: Toan Bryant MD 12/26/22 1643 (units unknown) (unknown) (unknown) (no date) (unknown) (unknown) Draft (units unknown) (unknown) (unknown) (no date) (unknown) (unknown) E78.5 - Hyperlipidemia, unspecified, G89.29 - Other chronic pain, I10 (units unknown) (unknown) (unknown) (no date) (unknown) (unknown) Encounter for general adult medical examination without abnormal findings (units unknown) (unknown) (unknown) (no date) (unknown) (unknown) Encounter for general adult medical examination without abnormal findings, Z12.5 (units unknown) (unknown) (unknown) (no date) (unknown) (unknown) Essential (keyla ingris) hypertension (units unknown) (unknown) (unknown) (no date) (unknown) (unknown) Essential (keyla ingris) hypertension, M54.9 - Dorsalgia, unspecified, Z00.00 (units unknown) (unknown) (unknown) (no date) (unknown) (unknown) Exam Narrative (unit s unknown) (unknown) (unknown) (no date) (unknown) (unknown) Exam Narrative: (uni ts unknown) (unknown) (unknown) (no date) (unknown) (unknown) Exam (units unknown) (unknown) (unknown) (no date) (unknown) (unknown) Family History (units unknown) (unknown) (unknown) (no date) (unknown) (unknown) Father History of heart disease (units unknown) (unknown) (unknown) (no date) (unknown) (unknown) [facility] (units unknown) (unknown) (unknown) (no date) (unknown) (unknown) Fractures (units unknown) (unknown) (unknown) (no date) (unknown) (unknown) HPI (units unknown) (unknown) (unknown) (no date) (unknown) (unknown) HTN (hypertension) ( units unknown) (unknown) (unknown) (no date) (unknown) (unknown) Health Managem ent reviewed with patient: Yes (units unknown) (unknown) (unknown) (no date) (unknown) (unknown) Health Management (u nits unknown) (unknown) (unknown) (no date) (unknown) (unknown) Hearing loss (units unknown) (unknown) (unknown) (no date) (unknown) (unknown) Height 6 ft (units unknown) (unknown) (unknown) (no date) (unknown) (unknown) Hemoglobin A1C % w Est Avg Glu 12/26/22 E55.9 - Vitamin D deficiency, (units unknown) (unknown) (unknown) (no date) (unknown) (unknown) High Sensitivi ty CRP - Cardiac 12/26/22 E55.9 - Vitamin D deficiency, (units unknown) (unknown) (unknown) (no date) (unknown) (unknown) History of mandibular surgery (-1974) (units unknown) (unknown) (unknown) (no date) (unknown) (unknown) Hx of cholecystectomy (units unknown) (unknown) (unknown) (no date) (unknown) (unknown) Hyperlipidemia (unit s unknown) (unknown) (unknown) (no date) (unknown) (unknown) Hyperlipidemia , unspecified, G89.29 - Other chronic pain, I10 - Essential (units unknown) (unknown) (unknown) (no date) (unknown) (unknown) Hypertension t ype: primary hypertension Qualified Code(s): I10 (units unknown) (unknown) (unknown) (no date) (unknown) (unknown) I am hopeful t hat his [facility] physician will be able to assist him in regard to his (units unknown) (unknown) (unknown) (no date) (unknown) (unknown) I10 - Essentia l (primary) hypertension, M54.9 - Dorsalgia, unspecified, Z00.00 (units unknown) (unknown) (unknown) (no date) (unknown) (unknown) If score is 2 or greater, continue (units unknown) (unknown) (unknown) (no date) (unknown) (unknown) Intake Note: (units unknown) (unknown) (unknown) (no date) (unknown) (unknown) Intake perform ed by: Ingris Daugherty (units unknown) (unknown) (unknown) (no date) (unknown) (unknown) Intake (units unknown) (unknown) (unknown) (no date) (unknown) (unknown) Intake- [place] [facility] Staff (units unknown) (unknown) (unknown) (no date) (unknown) (unknown) Internal Medic ine Office Visit (units unknown) (unknown) (unknown) (no date) (unknown) (unknown) Lipid Panel E55.9 - Vitamin D deficiency, unspecified, E78.5 (units unknown) (unknown) (unknown) (no date) (unknown) (unknown) Loc: [facility] (units unknown) (unknown) (unknown) (no date) (unknown) (unknown) Medical Histor y (Updated 12/26/22 @ 17:58 by Toan Bryant MD) (units unknown) (unknown) (unknown) (no date) (unknown) (unknown) Medications (units unknown) (unknown) (unknown) (no date) (unknown) (unknown) Medications: (units unknown) (unknown) (unknown) (no date) (unknown) (unknown) New (units unknown) (unknown) (unknown) (no date) (unknown) (unknown) [place]. (units unknown) (unknown) (unknown) (no date) (unknown) (unknown) Orders (units unknown) (unknown) (unknown) (no date) (unknown) (unknown) Orders: (units unknown) (unknown) (unknown) (no date) (unknown) (unknown) Over the last 2 weeks, how often have you been bothered by any of the following (units unknown) (unknown) (unknown) (no date) (unknown) (unknown) Oxygen Deliver y Method room air (units unknown) (unknown) (unknown) (no date) (unknown) (unknown) PE (physical e xam), annual (units unknown) (unknown) (unknown) (no date) (unknown) (unknown) PFSH (units unknown) (unknown) (unknown) (no date) (unknown) (unknown) PHQ-2 (units unknown) (unknown) (unknown) (no date) (unknown) (unknown) PHQ-2/PHQ-9 (units unknown) (unknown) (unknown) (no date) (unknown) (unknown) Parking Permit ... #1 ea 10/31/22 [Rx Confirmed 12/26/22] (units unknown) (unknown) (unknown) (no date) (unknown) (unknown) Patient report s that he will be seeing a [facility] physician tomorrow in regard to his (units unknown) (unknown) (unknown) (no date) (unknown) (unknown) Patient: Nikia Pablo MR#: [id number] (units unknown) (unknown) (unknown) (no date) (unknown) (unknown) Penicillins [PENICILLINS] Allergy (Unknown, Verified 12/26/22 16:43) (units unknown) (unknown) (unknown) (no date) (unknown) (unknown) Plan (units unknown) (unknown) (unknown) (no date) (unknown) (unknown) Position Sitting (un its unknown) (unknown) (unknown) (no date) (unknown) (unknown) Prostate Speci fic Antigen Scrn 12/26/22 E55.9 - Vitamin D deficiency, (units unknown) (unknown) (unknown) (no date) (unknown) (unknown) Pulse 52 L (units unknown) (unknown) (unknown) (no date) (unknown) (unknown) Pulse Oximetry (%) 98 (units unknown) (unknown) (unknown) (no date) (unknown) (unknown) Pulse Source Monitor (units unknown) (unknown) (unknown) (no date) (unknown) (unknown) Qualifiers: (units unknown) (unknown) (unknown) (no date) (unknown) (unknown) Quality Reporting (u nits unknown) (unknown) (unknown) (no date) (unknown) (unknown) Questionnaires (unit s unknown) (unknown) (unknown) (no date) (unknown) (unknown) Reason For Visit (un its unknown) (unknown) (unknown) (no date) (unknown) (unknown) Shoulder pain (units unknown) (unknown) (unknown) (no date) (unknown) (unknown) Signed By: (units unknown) (unknown) (unknown) (no date) (unknown) (unknown) Smoking Status : Never smoker (units unknown) (unknown) (unknown) (no date) (unknown) (unknown) Source: [place] [facility] by Drs. Elder Roa, Giselle Chris, Silvestre Verduzco (units unknown) (unknown) (unknown) (no date) (unknown) (unknown) Status: Acute (units unknown) (unknown) (unknown) (no date) (unknown) (unknown) Status: Chronic (uni ts unknown) (unknown) (unknown) (no date) (unknown) (unknown) Surgical Histo ry (units unknown) (unknown) (unknown) (no date) (unknown) (unknown) TID PRN pain # 100 mL 06/19/22 [Rx Confirmed 12/26/22] (units unknown) (unknown) (unknown) (no date) (unknown) (unknown) TSH w/ Reflex to FT4 12/26/22 E55.9 - Vitamin D deficiency, unspecified, E78.5 (units unknown) (unknown) (unknown) (no date) (unknown) (unknown) Temp 97.1 F L (units unknown) (unknown) (unknown) (no date) (unknown) (unknown) Temp Source Te mporal Artery Scan (units unknown) (unknown) (unknown) (no date) (unknown) (unknown) This note may have been all or partially generated using voice recognition (units unknown) (unknown) (unknown) (no date) (unknown) (unknown) Tinnitus (units unknown) (unknown) (unknown) (no date) (unknown) (unknown) Tobacco + Subs tance Use (units unknown) (unknown) (unknown) (no date) (unknown) (unknown) Tobacco Status (unit s unknown) (unknown) (unknown) (no date) (unknown) (unknown) Total score: 0 (unit s unknown) (unknown) (unknown) (no date) (unknown) (unknown) Total score: 2 (unit s unknown) (unknown) (unknown) (no date) (unknown) (unknown) Trial med over the next month. If tolerated and helping, will refill as (units unknown) (unknown) (unknown) (no date) (unknown) (unknown) Unknown (units unknown) (unknown) (unknown) (no date) (unknown) (unknown) Urinalysis and Microscopic 12/26/22 E55.9 - Vitamin D deficiency, unspecified, (units unknown) (unknown) (unknown) (no date) (unknown) (unknown) [facility] might consi turner an ARNOL. Patient appeared to understand and be in agreement (units unknown) (unknown) (unknown) (no date) (unknown) (unknown) Visit Reasons: Annual Medicare Well Visit (units unknown) (unknown) (unknown) (no date) (unknown) (unknown) Visit change f rom Medicare annual wellness to routine visit. Discussed his (units unknown) (unknown) (unknown) (no date) (unknown) (unknown) Vitals (units unknown) (unknown) (unknown) (no date) (unknown) (unknown) Weight 205 lb (units unknown) (unknown) (unknown) (no date) (unknown) (unknown) and colleagues , with an educational michele from [employer] (units unknown) (unknown) (unknown) (no date) (unknown) (unknown) and your famil y down: not at all (units unknown) (unknown) (unknown) (no date) (unknown) (unknown) anicteric and clear. Examination limited to skin which reveals a classic (units unknown) (unknown) (unknown) (no date) (unknown) (unknown) atorvastatin 1 0 mg tablet 10 mg PO DAILY #90 tabs 09/01/20 [Rx Confirmed (units unknown) (unknown) (unknown) (no date) (unknown) (unknown) back pain and an effort to improve it. Patient is entertain the idea of a (units unknown) (unknown) (unknown) (no date) (unknown) (unknown) back. Using to pical lidocaine to no avail. No report of blisters or pustules. (units unknown) (unknown) (unknown) (no date) (unknown) (unknown) bilateral hip injections but it is unclear that his hip pain might be related to (units unknown) (unknown) (unknown) (no date) (unknown) (unknown) cardiac CRP gi madai history of dad with heart disease and brother with fatal [place], (units unknown) (unknown) (unknown) (no date) (unknown) (unknown) celecoxib 200 mg capsule 200 mg PO DAILY #90 caps 12/14/22 [Rx Confirmed (units unknown) (unknown) (unknown) (no date) (unknown) (unknown) circular tinea corporis lesion on the right thigh greater than left without (units unknown) (unknown) (unknown) (no date) (unknown) (unknown) clotrimazole 1 % topical cream 1 applic topical TID presumed skin yeast (units unknown) (unknown) (unknown) (no date) (unknown) (unknown) clotrimazole 1% (uni ts unknown) (unknown) (unknown) (no date) (unknown) (unknown) clotrimazole b .i.d. to t.i.d. over the next week or 2 with topical (units unknown) (unknown) (unknown) (no date) (unknown) (unknown) contact around that time, comfortable work of breathing. Vitals reviewed Eyes (units unknown) (unknown) (unknown) (no date) (unknown) (unknown) depressive sym ptoms #30 caps 12/26/22 [Rx Confirmed 12/26/22] (units unknown) (unknown) (unknown) (no date) (unknown) (unknown) discontinue to pical lidocaine, since I do not anticipate it will work. Finally, (units unknown) (unknown) (unknown) (no date) (unknown) (unknown) discussion of multiple complaints while meeting me. Chief among them is a (units unknown) (unknown) (unknown) (no date) (unknown) (unknown) duloxetine (Cymbalta) (units unknown) (unknown) (unknown) (no date) (unknown) (unknown) duloxetine 30 mg capsule,delayed release (Cymbalta) 30 mg PO DAILY back pain, (units unknown) (unknown) (unknown) (no date) (unknown) (unknown) erythromycin b ase Allergy (Verified 12/26/22 16:43) (units unknown) (unknown) (unknown) (no date) (unknown) (unknown) gabapentin 300 mg capsule 300 mg PO BEDTIME #90 caps 12/20/21 [Rx Confirmed (units unknown) (unknown) (unknown) (no date) (unknown) (unknown) general adult medical examination without abnormal findings (units unknown) (unknown) (unknown) (no date) (unknown) (unknown) grams 1RF pres umed skin yeast infection (units unknown) (unknown) (unknown) (no date) (unknown) (unknown) have occurred. If there are any questions, please contact the Medical Records (units unknown) (unknown) (unknown) (no date) (unknown) (unknown) his lumbar spi ne. Ultimately I am hopeful that the physician he will see at the (units unknown) (unknown) (unknown) (no date) (unknown) (unknown) history of an itchy rash in the inguinal area bilaterally. Started a few days (units unknown) (unknown) (unknown) (no date) (unknown) (unknown) history on gabapentin and Celebrex with limited improvement. History of (units unknown) (unknown) (unknown) (no date) (unknown) (unknown) hydrocortisone 1 % topical ointment (Anti-Itch (hydrocortisone)) 1 applic (units unknown) (unknown) (unknown) (no date) (unknown) (unknown) hydrocortisone 1% (Anti-Itch (hydrocortisone)) (units unknown) (unknown) (unknown) (no date) (unknown) (unknown) hydrocortisone you need b.i.d. to help with the itch over that same time. Might (units unknown) (unknown) (unknown) (no date) (unknown) (unknown) hyperlipidemia on atorvastatin with unclear control. Finally, a history of (units unknown) (unknown) (unknown) (no date) (unknown) (unknown) hypertension o n lisinopril and GERD on omeprazole. Patient's last laboratories (units unknown) (unknown) (unknown) (no date) (unknown) (unknown) infection #30 grams 12/26/22 [Rx Confirmed 12/26/22] (units unknown) (unknown) (unknown) (no date) (unknown) (unknown) itch an issue 1 applic topical DAILY 28.35 grams 0RF (units unknown) (unknown) (unknown) (no date) (unknown) (unknown) kidney functio n. Also history of normal PSA. (units unknown) (unknown) (unknown) (no date) (unknown) (unknown) laboratories performed. These will include a CMP, CBC, TSH, lipids, PSA, (units unknown) (unknown) (unknown) (no date) (unknown) (unknown) lidocaine HCl 2 % mucosal solution (Lidocaine Viscous) 1 applic mucous membrane (units unknown) (unknown) (unknown) (no date) (unknown) (unknown) lisinopril 10 mg tablet 10 mg PO DAILY #90 tabs 08/01/20 [Rx Confirmed 12/26/22] (units unknown) (unknown) (unknown) (no date) (unknown) (unknown) loperamide 2 m g tablet 2 mg PO QID PRN 05/15/20 [History Confirmed 12/26/22] (units unknown) (unknown) (unknown) (no date) (unknown) (unknown) may occur. Occasional wrong-word or 'sound-alike' substitutions may have (units unknown) (unknown) (unknown) (no date) (unknown) (unknown) more than usua l: not at all (units unknown) (unknown) (unknown) (no date) (unknown) (unknown) multiple medic al issues including hypertension, hyperlipidemia and chronic back (units unknown) (unknown) (unknown) (no date) (unknown) (unknown) needed. 30 mg PO DAILY 30 caps 0RF back pain, depressive symptoms (units unknown) (unknown) (unknown) (no date) (unknown) (unknown) occurred due t o the inherent limitations of voice recognition software. Please (units unknown) (unknown) (unknown) (no date) (unknown) (unknown) omeprazole 20 mg capsule,delayed release 20 mg PO DAILY #90 caps 08/01/20 [Rx (units unknown) (unknown) (unknown) (no date) (unknown) (unknown) opposite - yash ng so fidgety or restless that you have been moving around a lot (units unknown) (unknown) (unknown) (no date) (unknown) (unknown) pain. Discusse d his blue mood and with his chronic pain of opted for Cymbalta (units unknown) (unknown) (unknown) (no date) (unknown) (unknown) platelet count at 137 K, eosinophilia, normal electrolytes, and normal liver and (units unknown) (unknown) (unknown) (no date) (unknown) (unknown) problems? (units unknown) (unknown) (unknown) (no date) (unknown) (unknown) read the note carefully and recognize, using context, where these substitutions (units unknown) (unknown) (unknown) (no date) (unknown) (unknown) significant lo wer back history. I anticipate he has spinal arthritis along with (units unknown) (unknown) (unknown) (no date) (unknown) (unknown) software. 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 (units unknown) (unknown) (unknown) (no date) (unknown) (unknown) spinal injecti on if offered but has shied away from such. Patient with a (units unknown) (unknown) (unknown) (no date) (unknown) (unknown) television: no t at all (units unknown) (unknown) (unknown) (no date) (unknown) (unknown) the next 2-3 w eeks and overbook him in to a slot for annual wellness after (units unknown) (unknown) (unknown) (no date) (unknown) (unknown) topical DAILY #28.35 grams 12/26/22 [Rx Confirmed 12/26/22] (units unknown) (unknown) (unknown) (no date) (unknown) (unknown) unspecified, E 78.5 - Hyperlipidemia, unspecified, G89.29 - Other chronic pain, (units unknown) (unknown) (unknown) (no date) (unknown) (unknown) urinalysis. Fo r his classic pruritic tinea corporis, would recommend (units unknown) (unknown) (unknown) (no date) (unknown) (unknown) vesicles, pust ules, discharge or bleeding. (units unknown) (unknown) (unknown) (no date) (unknown) (unknown) way: not at all (uni ts unknown) (unknown) (unknown) (no date) (unknown) (unknown) were in Octobe r of last year and were remarkable for a minimally depressed (units unknown) (unknown) (unknown) (no date) (unknown) (unknown) with above gustavo ns. Medications to be sent to preferred pharmacy at [facility] in (units unknown) (unknown) Result panel 5 (unknown) (no date) (unknown) (unknown) (no value) (units unknown) (unknown) (unknown) (no date) (unknown) (unknown) (1) Hyperlipidemia: (units unknown) (unknown) (unknown) (no date) (unknown) (unknown) (2) HTN (hypertension): (units unknown) (unknown) (unknown) (no date) (unknown) (unknown) (3) Chronic ba ck pain: (units unknown) (unknown) (unknown) (no date) (unknown) (unknown) (4) Vitamin D insufficiency: (units unknown) (unknown) (unknown) (no date) (unknown) (unknown) (5) Tinea corporis: (units unknown) (unknown) (unknown) (no date) (unknown) (unknown) (primary) hypertension, M54.9 - Dorsalgia, unspecified, Z00.00 - Encounter for (units unknown) (unknown) (unknown) (no date) (unknown) (unknown) - Encounter fo r screening for malignant neoplasm of prostate (units unknown) (unknown) (unknown) (no date) (unknown) (unknown) 12/26/22 (units unknown) (unknown) (unknown) (no date) (unknown) (unknown) 12/26/22] (units unknown) (unknown) (unknown) (no date) (unknown) (unknown) 12/27/22 0831 (units unknown) (unknown) (unknown) (no date) (unknown) (unknown) 1. Little inte rest or pleasure in doing things: not at all (units unknown) (unknown) (unknown) (no date) (unknown) (unknown) 16:49 (units unknown) (unknown) (unknown) (no date) (unknown) (unknown) 2. Feeling emigdio n, depressed, or hopeless: not at all (units unknown) (unknown) (unknown) (no date) (unknown) (unknown) (units unknown) (unknown) (unknown) (no date) (unknown) (unknown) 3. Trouble fal ling or staying asleep, or sleeping too much: several days (units unknown) (unknown) (unknown) (no date) (unknown) (unknown) 4. Feeling tir ed or having little energy: not at all (units unknown) (unknown) (unknown) (no date) (unknown) (unknown) 5. Poor appeti te or overeating: several days (units unknown) (unknown) (unknown) (no date) (unknown) (unknown) 6. Feeling bad about yourself - or that you are a failure or have let yourself (units unknown) (unknown) (unknown) (no date) (unknown) (unknown) 67 year old leann villavicencio presents to clinic for annual medicare wellness exam. (units unknown) (unknown) (unknown) (no date) (unknown) (unknown) 67-year-old leann villavicencio initially here for Medicare annual wellness but changed to a (units unknown) (unknown) (unknown) (no date) (unknown) (unknown) 7. Trouble concentrating on things, such as reading the newspaper or watching (units unknown) (unknown) (unknown) (no date) (unknown) (unknown) 8. Moving or speaking so slowly that other people could have noticed? - Or the (units unknown) (unknown) (unknown) (no date) (unknown) (unknown) 9. Thoughts th at you would be better off or of hurting yourself in some (units unknown) (unknown) (unknown) (no date) (unknown) (unknown) Age/Sex: 67 / M Date of Service: (units unknown) (unknown) (unknown) (no date) (unknown) (unknown) Alert, tearful when discussing his brother who related to [place], limited eye (units unknown) (unknown) (unknown) (no date) (unknown) (unknown) Allergies (units unknown) (unknown) (unknown) (no date) (unknown) (unknown) Also with significant lower back pain presumptively related to a combination of (units unknown) (unknown) (unknown) (no date) (unknown) (unknown) [place] [id number] (units unknown) (unknown) (unknown) (no date) (unknown) (unknown) Anesthesia (units unknown) (unknown) (unknown) (no date) (unknown) (unknown) Apply once to twice daily after clotrimazole cream for the next 1-2 weeks if (units unknown) (unknown) (unknown) (no date) (unknown) (unknown) Apply to itchy red rash for the next 1-2 weeks. 1 applic topical TID 30 (units unknown) (unknown) (unknown) (no date) (unknown) (unknown) Assessment + Plan (u nits unknown) (unknown) (unknown) (no date) (unknown) (unknown) Attending Dr: Toan Bryant MD (units unknown) (unknown) (unknown) (no date) (unknown) (unknown) BMI 27.8 (units unknown) (unknown) (unknown) (no date) (unknown) (unknown) BP 130/80 (units unknown) (unknown) (unknown) (no date) (unknown) (unknown) Back pain loca tion: back pain in unspecified location Back pain (units unknown) (unknown) (unknown) (no date) (unknown) (unknown) Blood Pressure Location Lt brachial (units unknown) (unknown) (unknown) (no date) (unknown) (unknown) Brother Deceas ed Cancer (units unknown) (unknown) (unknown) (no date) (unknown) (unknown) Bunion of left foot (units unknown) (unknown) (unknown) (no date) (unknown) (unknown) Chicken pox (units unknown) (unknown) (unknown) (no date) (unknown) (unknown) Chief Complaint (uni ts unknown) (unknown) (unknown) (no date) (unknown) (unknown) Chief Complain t: Multiple complaints (units unknown) (unknown) (unknown) (no date) (unknown) (unknown) Chronic back pain (u nits unknown) (unknown) (unknown) (no date) (unknown) (unknown) Chronic knee pain (u nits unknown) (unknown) (unknown) (no date) (unknown) (unknown) Closed head injury ( units unknown) (unknown) (unknown) (no date) (unknown) (unknown) Complete Blood Count AUTO DIFF 12/26/22 E55.9 - Vitamin D deficiency, (units unknown) (unknown) (unknown) (no date) (unknown) (unknown) Comprehensive Metabolic Panel 12/26/22 E55.9 - Vitamin D deficiency, (units unknown) (unknown) (unknown) (no date) (unknown) (unknown) Confirmed 12/26/22] (units unknown) (unknown) (unknown) (no date) (unknown) (unknown) : 5 Acct:[id number] (units unknown) (unknown) (unknown) (no date) (unknown) (unknown) Depression/Bip olar (159/160/161/169/177 ) (units unknown) (unknown) (unknown) (no date) (unknown) (unknown) Dept at . (units unknown) (unknown) (unknown) (no date) (unknown) (unknown) Details: (units unknown) (unknown) (unknown) (no date) (unknown) (unknown) Documented By: Toan Bryant MD 12/26/22 1643 (units unknown) (unknown) (unknown) (no date) (unknown) (unknown) E78.5 - Hyperlipidemia, unspecified, G89.29 - Other chronic pain, I10 (units unknown) (unknown) (unknown) (no date) (unknown) (unknown) Encounter for general adult medical examination without abnormal findings (units unknown) (unknown) (unknown) (no date) (unknown) (unknown) Encounter for general adult medical examination without abnormal findings, Z12.5 (units unknown) (unknown) (unknown) (no date) (unknown) (unknown) Essential (keyla ingris) hypertension (units unknown) (unknown) (unknown) (no date) (unknown) (unknown) Essential (keyla ingris) hypertension, M54.9 - Dorsalgia, unspecified, Z00.00 (units unknown) (unknown) (unknown) (no date) (unknown) (unknown) Exam Narrative (unit s unknown) (unknown) (unknown) (no date) (unknown) (unknown) Exam Narrative: (uni ts unknown) (unknown) (unknown) (no date) (unknown) (unknown) Exam (units unknown) (unknown) (unknown) (no date) (unknown) (unknown) Family History (units unknown) (unknown) (unknown) (no date) (unknown) (unknown) Father History of heart disease (units unknown) (unknown) (unknown) (no date) (unknown) (unknown) [facility] (units unknown) (unknown) (unknown) (no date) (unknown) (unknown) Fractures (units unknown) (unknown) (unknown) (no date) (unknown) (unknown) G89.29 - Other chronic pain (units unknown) (unknown) (unknown) (no date) (unknown) (unknown) HPI (units unknown) (unknown) (unknown) (no date) (unknown) (unknown) HTN (hypertension) ( units unknown) (unknown) (unknown) (no date) (unknown) (unknown) Health Managem ent reviewed with patient: Yes (units unknown) (unknown) (unknown) (no date) (unknown) (unknown) Health Management (u nits unknown) (unknown) (unknown) (no date) (unknown) (unknown) Hearing loss (units unknown) (unknown) (unknown) (no date) (unknown) (unknown) Height 6 ft (units unknown) (unknown) (unknown) (no date) (unknown) (unknown) Hemoglobin A1C % w Est Avg Glu 12/26/22 E55.9 - Vitamin D deficiency, (units unknown) (unknown) (unknown) (no date) (unknown) (unknown) High Sensitivi ty CRP - Cardiac 12/26/22 E55.9 - Vitamin D deficiency, (units unknown) (unknown) (unknown) (no date) (unknown) (unknown) History of mandibular surgery (-1974) (units unknown) (unknown) (unknown) (no date) (unknown) (unknown) Hx of cholecystectomy (units unknown) (unknown) (unknown) (no date) (unknown) (unknown) Hyperlipidemia type: unspecified Qualified Code(s): E78.5 (units unknown) (unknown) (unknown) (no date) (unknown) (unknown) Hyperlipidemia (unit s unknown) (unknown) (unknown) (no date) (unknown) (unknown) Hyperlipidemia , unspecified (units unknown) (unknown) (unknown) (no date) (unknown) (unknown) Hyperlipidemia , unspecified, G89.29 - Other chronic pain, I10 - Essential (units unknown) (unknown) (unknown) (no date) (unknown) (unknown) Hypertension t ype: primary hypertension Qualified Code(s): I10 (units unknown) (unknown) (unknown) (no date) (unknown) (unknown) I am hopeful t hat his [place] physician will be able to assist him in regard to his (units unknown) (unknown) (unknown) (no date) (unknown) (unknown) I10 - [place] (primary) hypertension, M54.9 - Dorsalgia, unspecified, Z00.00 (units unknown) (unknown) (unknown) (no date) (unknown) (unknown) If score is 2 or greater, continue (units unknown) (unknown) (unknown) (no date) (unknown) (unknown) Intake Note: (units unknown) (unknown) (unknown) (no date) (unknown) (unknown) Intake perform ed by: Ingris Daugherty (units unknown) (unknown) (unknown) (no date) (unknown) (unknown) Intake (units unknown) (unknown) (unknown) (no date) (unknown) (unknown) Intake- [place] [facility] (units unknown) (unknown) (unknown) (no date) (unknown) (unknown) Internal Medic ine Office Visit (units unknown) (unknown) (unknown) (no date) (unknown) (unknown) Lipid Panel E55.9 - Vitamin D deficiency, unspecified, E78.5 (units unknown) (unknown) (unknown) (no date) (unknown) (unknown) Loc: [facility] (units unknown) (unknown) (unknown) (no date) (unknown) (unknown) Medical Histor y (Updated 12/27/22 @ 08:30 by Toan Bryant MD) (units unknown) (unknown) (unknown) (no date) (unknown) (unknown) Medications (units unknown) (unknown) (unknown) (no date) (unknown) (unknown) Medications: (units unknown) (unknown) (unknown) (no date) (unknown) (unknown) New (units unknown) (unknown) (unknown) (no date) (unknown) (unknown) [place]. (units unknown) (unknown) (unknown) (no date) (unknown) (unknown) Orders (units unknown) (unknown) (unknown) (no date) (unknown) (unknown) Orders: (units unknown) (unknown) (unknown) (no date) (unknown) (unknown) Over the last 2 weeks, how often have you been bothered by any of the following (units unknown) (unknown) (unknown) (no date) (unknown) (unknown) Oxygen Deliver y Method room air (units unknown) (unknown) (unknown) (no date) (unknown) (unknown) PE (physical e xam), annual (units unknown) (unknown) (unknown) (no date) (unknown) (unknown) PFSH (units unknown) (unknown) (unknown) (no date) (unknown) (unknown) PHQ-2 (units unknown) (unknown) (unknown) (no date) (unknown) (unknown) PHQ-2/PHQ-9 (units unknown) (unknown) (unknown) (no date) (unknown) (unknown) Parking Permit ... #1 ea 10/31/22 [Rx Confirmed 12/26/22] (units unknown) (unknown) (unknown) (no date) (unknown) (unknown) Patient report s that he [facility] in regard to his (units unknown) (unknown) (unknown) (no date) (unknown) (unknown) Patient: Niika Pablo MR#: [id number] (units unknown) (unknown) (unknown) (no date) (unknown) (unknown) Penicillins [PENICILLINS] Allergy (Unknown, Verified 12/26/22 16:43) (units unknown) (unknown) (unknown) (no date) (unknown) (unknown) Plan (units unknown) (unknown) (unknown) (no date) (unknown) (unknown) Position Sitting (un its unknown) (unknown) (unknown) (no date) (unknown) (unknown) Prostate Speci fic Antigen Scrn 12/26/22 E55.9 - Vitamin D deficiency, (units unknown) (unknown) (unknown) (no date) (unknown) (unknown) Pulse 52 L (units unknown) (unknown) (unknown) (no date) (unknown) (unknown) Pulse Oximetry (%) 98 (units unknown) (unknown) (unknown) (no date) (unknown) (unknown) Pulse Source Monitor (units unknown) (unknown) (unknown) (no date) (unknown) (unknown) Qualifiers: (units unknown) (unknown) (unknown) (no date) (unknown) (unknown) Quality Reporting (u nits unknown) (unknown) (unknown) (no date) (unknown) (unknown) Questionnaires (unit s unknown) (unknown) (unknown) (no date) (unknown) (unknown) Reason For Visit (un its unknown) (unknown) (unknown) (no date) (unknown) (unknown) Shoulder pain (units unknown) (unknown) (unknown) (no date) (unknown) (unknown) Signed By: <Electronically signed by Toan Bryant MD> (units unknown) (unknown) (unknown) (no date) (unknown) (unknown) Signed (units unknown) (unknown) (unknown) (no date) (unknown) (unknown) Smoking Status : Never smoker (units unknown) (unknown) (unknown) (no date) (unknown) (unknown) Source: Develo ped by Drs. Elder Roa, Giselle Chris, Silvestre Verduzco (units unknown) (unknown) (unknown) (no date) (unknown) (unknown) Status: Acute (units unknown) (unknown) (unknown) (no date) (unknown) (unknown) Status: Chronic (uni ts unknown) (unknown) (unknown) (no date) (unknown) (unknown) Surgical Histo ry (units unknown) (unknown) (unknown) (no date) (unknown) (unknown) TID PRN pain # 100 mL 06/19/22 [Rx Confirmed 12/26/22] (units unknown) (unknown) (unknown) (no date) (unknown) (unknown) TSH w/ Reflex to FT4 12/26/22 E55.9 - Vitamin D deficiency, unspecified, E78.5 (units unknown) (unknown) (unknown) (no date) (unknown) (unknown) Temp 97.1 F L (units unknown) (unknown) (unknown) (no date) (unknown) (unknown) Temp Source Te mporal Artery Scan (units unknown) (unknown) (unknown) (no date) (unknown) (unknown) This note may have been all or partially generated using voice recognition (units unknown) (unknown) (unknown) (no date) (unknown) (unknown) Tinea corporis (unit s unknown) (unknown) (unknown) (no date) (unknown) (unknown) Tinnitus (units unknown) (unknown) (unknown) (no date) (unknown) (unknown) Tobacco + Subs tance Use (units unknown) (unknown) (unknown) (no date) (unknown) (unknown) Tobacco Status (unit s unknown) (unknown) (unknown) (no date) (unknown) (unknown) Total score: 0 (unit s unknown) (unknown) (unknown) (no date) (unknown) (unknown) Total score: 2 (unit s unknown) (unknown) (unknown) (no date) (unknown) (unknown) Trial med over the next month. If tolerated and helping, will refill as (units unknown) (unknown) (unknown) (no date) (unknown) (unknown) Unknown (units unknown) (unknown) (unknown) (no date) (unknown) (unknown) Urinalysis and Microscopic 12/26/22 E55.9 - Vitamin D deficiency, unspecified, (units unknown) (unknown) (unknown) (no date) (unknown) (unknown) [facility] might consi turner an ARNOL. Patient appeared to understand and be in agreement (units unknown) (unknown) (unknown) (no date) (unknown) (unknown) Visit Reasons: Annual Medicare Well Visit (units unknown) (unknown) (unknown) (no date) (unknown) (unknown) Visit change f rom Medicare annual wellness to routine visit. Discussed his (units unknown) (unknown) (unknown) (no date) (unknown) (unknown) Vitals (units unknown) (unknown) (unknown) (no date) (unknown) (unknown) Weight 205 lb (units unknown) (unknown) (unknown) (no date) (unknown) (unknown) and colleagues , with an educational michele from [employer] (units unknown) (unknown) (unknown) (no date) (unknown) (unknown) and your famil y down: not at all (units unknown) (unknown) (unknown) (no date) (unknown) (unknown) anicteric and clear. Examination limited to skin which reveals a classic (units unknown) (unknown) (unknown) (no date) (unknown) (unknown) atorvastatin 1 0 mg tablet 10 mg PO DAILY #90 tabs 09/01/20 [Rx Confirmed (units unknown) (unknown) (unknown) (no date) (unknown) (unknown) back pain and an effort to improve it. Patient is entertaining the idea of a (units unknown) (unknown) (unknown) (no date) (unknown) (unknown) back. Using to pical lidocaine to no avail. No report of blisters or pustules. (units unknown) (unknown) (unknown) (no date) (unknown) (unknown) bilateral hip injections but it is unclear that his hip pain might be related to (units unknown) (unknown) (unknown) (no date) (unknown) (unknown) cardiac CRP gi madai history of dad with heart disease and brother with fatal [place], (units unknown) (unknown) (unknown) (no date) (unknown) (unknown) celecoxib 200 mg capsule 200 mg PO DAILY #90 caps 12/14/22 [Rx Confirmed (units unknown) (unknown) (unknown) (no date) (unknown) (unknown) circular tinea corporis lesion on the right thigh greater than left without (units unknown) (unknown) (unknown) (no date) (unknown) (unknown) clotrimazole 1 % topical cream 1 applic topical TID presumed skin yeast (units unknown) (unknown) (unknown) (no date) (unknown) (unknown) clotrimazole 1% (uni ts unknown) (unknown) (unknown) (no date) (unknown) (unknown) clotrimazole b .i.d. to t.i.d. over the next week or 2 with topical (units unknown) (unknown) (unknown) (no date) (unknown) (unknown) contact around that time, comfortable work of breathing. Vitals reviewed Eyes (units unknown) (unknown) (unknown) (no date) (unknown) (unknown) depressive sym ptoms #30 caps 12/26/22 [Rx Confirmed 12/26/22] (units unknown) (unknown) (unknown) (no date) (unknown) (unknown) discontinue to pical lidocaine, since I do not anticipate it will help. Finally, (units unknown) (unknown) (unknown) (no date) (unknown) (unknown) discussion of multiple complaints while meeting me. Chief among them is a (units unknown) (unknown) (unknown) (no date) (unknown) (unknown) duloxetine (Cymbalta) (units unknown) (unknown) (unknown) (no date) (unknown) (unknown) duloxetine 30 mg capsule,delayed release (Cymbalta) 30 mg PO DAILY back pain, (units unknown) (unknown) (unknown) (no date) (unknown) (unknown) erythromycin b ase Allergy (Verified 12/26/22 16:43) (units unknown) (unknown) (unknown) (no date) (unknown) (unknown) gabapentin 300 mg capsule 300 mg PO BEDTIME #90 caps 12/20/21 [Rx Confirmed (units unknown) (unknown) (unknown) (no date) (unknown) (unknown) general adult medical examination without abnormal findings (units unknown) (unknown) (unknown) (no date) (unknown) (unknown) grams 1RF pres umed skin yeast infection (units unknown) (unknown) (unknown) (no date) (unknown) (unknown) have occurred. If there are any questions, please contact the Medical Records (units unknown) (unknown) (unknown) (no date) (unknown) (unknown) his lumbar spi ne. Ultimately I am hopeful that the physician he will see at the (units unknown) (unknown) (unknown) (no date) (unknown) (unknown) history of an itchy rash in the inguinal area bilaterally. Started a few days (units unknown) (unknown) (unknown) (no date) (unknown) (unknown) history on gabapentin and Celebrex with limited improvement. History of (units unknown) (unknown) (unknown) (no date) (unknown) (unknown) hydrocortisone 1 % topical ointment (Anti-Itch (hydrocortisone)) 1 applic (units unknown) (unknown) (unknown) (no date) (unknown) (unknown) hydrocortisone 1% (Anti-Itch (hydrocortisone)) (units unknown) (unknown) (unknown) (no date) (unknown) (unknown) hydrocortisone b.i.d. to help with the itch over that same time period. Might (units unknown) (unknown) (unknown) (no date) (unknown) (unknown) hyperlipidemia on atorvastatin with unclear control. Finally, a history of (units unknown) (unknown) (unknown) (no date) (unknown) (unknown) hypertension o n lisinopril and GERD on omeprazole. Patient's last laboratories (units unknown) (unknown) (unknown) (no date) (unknown) (unknown) infection #30 grams 12/26/22 [Rx Confirmed 12/26/22] (units unknown) (unknown) (unknown) (no date) (unknown) (unknown) itch an issue 1 applic topical DAILY 28.35 grams 0RF (units unknown) (unknown) (unknown) (no date) (unknown) (unknown) kidney functio n. Also history of normal PSA. (units unknown) (unknown) (unknown) (no date) (unknown) (unknown) laboratories performed. These will include a CMP, CBC, TSH, lipids, PSA, (units unknown) (unknown) (unknown) (no date) (unknown) (unknown) laterality: unspecified Qualified Code(s): M54.9 - Dorsalgia, unspecified; (units unknown) (unknown) (unknown) (no date) (unknown) (unknown) lidocaine HCl 2 % mucosal solution (Lidocaine Viscous) 1 applic mucous membrane (units unknown) (unknown) (unknown) (no date) (unknown) (unknown) lisinopril 10 mg tablet 10 mg PO DAILY #90 tabs 08/01/20 [Rx Confirmed 12/26/22] (units unknown) (unknown) (unknown) (no date) (unknown) (unknown) loperamide 2 m g tablet 2 mg PO QID PRN 05/15/20 [History Confirmed 12/26/22] (units unknown) (unknown) (unknown) (no date) (unknown) (unknown) may occur. Occasional wrong-word or 'sound-alike' substitutions may have (units unknown) (unknown) (unknown) (no date) (unknown) (unknown) mg once daily over the next 2-4 weeks trial. Would follow-up with patient in (units unknown) (unknown) (unknown) (no date) (unknown) (unknown) more than usua l: not at all (units unknown) (unknown) (unknown) (no date) (unknown) (unknown) multiple medic al issues including hypertension, hyperlipidemia and chronic back (units unknown) (unknown) (unknown) (no date) (unknown) (unknown) needed. 30 mg PO DAILY 30 caps 0RF back pain, depressive symptoms (units unknown) (unknown) (unknown) (no date) (unknown) (unknown) occurred due t o the inherent limitations of voice recognition software. Please (units unknown) (unknown) (unknown) (no date) (unknown) (unknown) omeprazole 20 mg capsule,delayed release 20 mg PO DAILY #90 caps 08/01/20 [Rx (units unknown) (unknown) (unknown) (no date) (unknown) (unknown) opposite - yash ng so fidgety or restless that you have been moving around a lot (units unknown) (unknown) (unknown) (no date) (unknown) (unknown) pain. Discusse d his 'blue mood' and with his chronic pain opted for Cymbalta 30 (units unknown) (unknown) (unknown) (no date) (unknown) (unknown) platelet count at 137 K, eosinophilia, normal electrolytes, and normal liver and (units unknown) (unknown) (unknown) (no date) (unknown) (unknown) problems? (units unknown) (unknown) (unknown) (no date) (unknown) (unknown) read the note carefully and recognize, using context, where these substitutions (units unknown) (unknown) (unknown) (no date) (unknown) (unknown) significant lo wer back history. I anticipate he has spinal arthritis along with (units unknown) (unknown) (unknown) (no date) (unknown) (unknown) software. 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 (units unknown) (unknown) (unknown) (no date) (unknown) (unknown) spinal injecti on if offered but has shied away from such. Patient with a (units unknown) (unknown) (unknown) (no date) (unknown) (unknown) television: no t at all (units unknown) (unknown) (unknown) (no date) (unknown) (unknown) the next 2-3 w eeks and overbook him in to a slot for annual wellness after (units unknown) (unknown) (unknown) (no date) (unknown) (unknown) topical DAILY #28.35 grams 12/26/22 [Rx Confirmed 12/26/22] (units unknown) (unknown) (unknown) (no date) (unknown) (unknown) unspecified, E 78.5 - Hyperlipidemia, unspecified, G89.29 - Other chronic pain, (units unknown) (unknown) (unknown) (no date) (unknown) (unknown) urinalysis. Fo r his classic pruritic tinea corporis, would recommend (units unknown) (unknown) (unknown) (no date) (unknown) (unknown) vesicles, pust ules, discharge or bleeding. (units unknown) (unknown) (unknown) (no date) (unknown) (unknown) way: not at all (uni ts unknown) (unknown) (unknown) (no date) (unknown) (unknown) were in Octobe r of last year and were remarkable for a minimally depressed (units unknown) (unknown) (unknown) (no date) (unknown) (unknown) with above gustavo ns. Medications to be sent to preferred pharmacy at [facility] in (units unknown) (unknown) Result panel 6 (unknown) (no date) (unknown) (unknown) >=1.030 (units unknown) (unknown) (unknown) (no date) (unknown) (unknown) 1.0 e.u./dl (unknown ) (unknown) (no date) (unknown) (unknown) 5.5 (units unknown) (unknown) (unknown) (no date) (unknown) (unknown) CLEAR (units unknown) (unknown) (unknown) (no date) (unknown) (unknown) NEGATIVE (units unknown) (unknown) (unknown) (no date) (unknown) (unknown) NEGATIVE g/dl (unknow n) (unknown) (no date) (unknown) (unknown) TRACE (units unknown) (unknown) (unknown) (no date) (unknown) (unknown) YELLOW (units unknown) (unknown) (unknown) (no date) (unknown) (unknown) YELLOW (units unknown) (unknown) Result panel 7 (unknown) (no date) (unknown) (unknown) >=1.030 (units unknown) (unknown) (unknown) (no date) (unknown) (unknown) 0-1/HPF (units unknown) (unknown) (unknown) (no date) (unknown) (unknown) 1.0 e.u./dl (unknown ) (unknown) (no date) (unknown) (unknown) 5.5 (units unknown) (unknown) (unknown) (no date) (unknown) (unknown) CLEAR (units unknown) (unknown) (unknown) (no date) (unknown) (unknown) Cult Not Indicated ( units unknown) (unknown) (unknown) (no date) (unknown) (unknown) Few (2-10) (units unknown) (unknown) (unknown) (no date) (unknown) (unknown) NEGATIVE (units unknown) (unknown) (unknown) (no date) (unknown) (unknown) NEGATIVE g/dl (unknow n) (unknown) (no date) (unknown) (unknown) None Seen (units unknown) (unknown) (unknown) (no date) (unknown) (unknown) TRACE (units unknown) (unknown) (unknown) (no date) (unknown) (unknown) YELLOW (units unknown) (unknown) (unknown) (no date) (unknown) (unknown) YELLOW (units unknown) (unknown) Result panel 8 (unknown) (no date) (unknown) (unknown) > 60 ml/min (unknown ) (unknown) (no date) (unknown) (unknown) > 60 ml/min (unknown ) (unknown) (no date) (unknown) (unknown) 1.1 mg/dl (unknown ) (unknown) (no date) (unknown) (unknown) 1.27 mg/dl (unknown ) (unknown) (no date) (unknown) (unknown) 1.7 (units unknown) (unknown) (unknown) (no date) (unknown) (unknown) 102 mmol/l (unknown ) (unknown) (no date) (unknown) (unknown) 102 u/l (unknown ) (unknown) (no date) (unknown) (unknown) 105 mg/dl (unknown ) (unknown) (no date) (unknown) (unknown) 105 mg/dl (unknown ) (unknown) (no date) (unknown) (unknown) 110 mg/dl (unknown ) (unknown) (no date) (unknown) (unknown) 110 mg/dl (unknown ) (unknown) (no date) (unknown) (unknown) 140 mmol/l (unknown ) (unknown) (no date) (unknown) (unknown) 168 mg/dl (unknown ) (unknown) (no date) (unknown) (unknown) 168 mg/dl (unknown ) (unknown) (no date) (unknown) (unknown) 19.7 (units unknown) (unknown) (unknown) (no date) (unknown) (unknown) 2.6 g/dl (unknown ) (unknown) (no date) (unknown) (unknown) 25 iu/l (unknown ) (unknown) (no date) (unknown) (unknown) 25 mg/dl (unknown ) (unknown) (no date) (unknown) (unknown) 26 iu/l (unknown ) (unknown) (no date) (unknown) (unknown) 29 mmol/l (unknown ) (unknown) (no date) (unknown) (unknown) 33 mg/dl (unknown ) (unknown) (no date) (unknown) (unknown) 33 mg/dl (unknown ) (unknown) (no date) (unknown) (unknown) 4.4 g/dl (unknown ) (unknown) (no date) (unknown) (unknown) 4.4 mmol/l (unknown ) (unknown) (no date) (unknown) (unknown) 43 mg/dl (unknown ) (unknown) (no date) (unknown) (unknown) 43 mg/dl (unknown ) (unknown) (no date) (unknown) (unknown) 7.0 g/dl (unknown ) (unknown) (no date) (unknown) (unknown) 9.4 mg/dl (unknown ) Result panel 9 (unknown) (no date) (unknown) (unknown) > 60 ml/min (unknown ) (unknown) (no date) (unknown) (unknown) > 60 ml/min (unknown ) (unknown) (no date) (unknown) (unknown) < 0.3 mg/l (unknown ) (unknown) (no date) (unknown) (unknown) < 0.3 mg/l (unknown ) (unknown) (no date) (unknown) (unknown) 1.1 mg/dl (unknown ) (unknown) (no date) (unknown) (unknown) 1.27 mg/dl (unknown ) (unknown) (no date) (unknown) (unknown) 1.7 (units unknown) (unknown) (unknown) (no date) (unknown) (unknown) 102 mmol/l (unknown ) (unknown) (no date) (unknown) (unknown) 102 u/l (unknown ) (unknown) (no date) (unknown) (unknown) 105 mg/dl (unknown ) (unknown) (no date) (unknown) (unknown) 105 mg/dl (unknown ) (unknown) (no date) (unknown) (unknown) 110 mg/dl (unknown ) (unknown) (no date) (unknown) (unknown) 110 mg/dl (unknown ) (unknown) (no date) (unknown) (unknown) 140 mmol/l (unknown ) (unknown) (no date) (unknown) (unknown) 168 mg/dl (unknown ) (unknown) (no date) (unknown) (unknown) 168 mg/dl (unknown ) (unknown) (no date) (unknown) (unknown) 19.7 (units unknown) (unknown) (unknown) (no date) (unknown) (unknown) 2.6 g/dl (unknown ) (unknown) (no date) (unknown) (unknown) 25 iu/l (unknown ) (unknown) (no date) (unknown) (unknown) 25 mg/dl (unknown ) (unknown) (no date) (unknown) (unknown) 26 iu/l (unknown ) (unknown) (no date) (unknown) (unknown) 29 mmol/l (unknown ) (unknown) (no date) (unknown) (unknown) 33 mg/dl (unknown ) (unknown) (no date) (unknown) (unknown) 33 mg/dl (unknown ) (unknown) (no date) (unknown) (unknown) 4.4 g/dl (unknown ) (unknown) (no date) (unknown) (unknown) 4.4 mmol/l (unknown ) (unknown) (no date) (unknown) (unknown) 43 mg/dl (unknown ) (unknown) (no date) (unknown) (unknown) 43 mg/dl (unknown ) (unknown) (no date) (unknown) (unknown) 7.0 g/dl (unknown ) (unknown) (no date) (unknown) (unknown) 9.4 mg/dl (unknown ) Result panel 10 (unknown) (no date) (unknown) (unknown) 0 /ul (unknown ) (unknown) (no date) (unknown) (unknown) 0.5 % (unknown ) (unknown) (no date) (unknown) (unknown) 13.4 % (unknown ) (unknown) (no date) (unknown) (unknown) 15.6 g/dl (unknown ) (unknown) (no date) (unknown) (unknown) 160 x10 3/ul (unknow n) (unknown) (no date) (unknown) (unknown) 2.1 % (unknown ) (unknown) (no date) (unknown) (unknown) 200 /ul (unknown ) (unknown) (no date) (unknown) (unknown) 2500 /ul (unknown ) (unknown) (no date) (unknown) (unknown) 31.6 pg (unknown ) (unknown) (no date) (unknown) (unknown) 32.7 % (unknown ) (unknown) (no date) (unknown) (unknown) 35.3 % (unknown ) (unknown) (no date) (unknown) (unknown) 4.94 x10 6/ul (unknow n) (unknown) (no date) (unknown) (unknown) 44.2 % (unknown ) (unknown) (no date) (unknown) (unknown) 4400 /ul (unknown ) (unknown) (no date) (unknown) (unknown) 57.5 % (unknown ) (unknown) (no date) (unknown) (unknown) 600 /ul (unknown ) (unknown) (no date) (unknown) (unknown) 7.2 % (unknown ) (unknown) (no date) (unknown) (unknown) 7.7 x10 3/ul (unknow n) (unknown) (no date) (unknown) (unknown) 89.5 fl (unknown ) Result panel 11 (unknown) (no date) (unknown) (unknown) > 60 ml/min (unknown ) (unknown) (no date) (unknown) (unknown) > 60 ml/min (unknown ) (unknown) (no date) (unknown) (unknown) < 0.3 mg/l (unknown ) (unknown) (no date) (unknown) (unknown) < 0.3 mg/l (unknown ) (unknown) (no date) (unknown) (unknown) 1.1 mg/dl (unknown ) (unknown) (no date) (unknown) (unknown) 1.26 ng/ml (unknown ) (unknown) (no date) (unknown) (unknown) 1.27 mg/dl (unknown ) (unknown) (no date) (unknown) (unknown) 1.7 (units unknown) (unknown) (unknown) (no date) (unknown) (unknown) 1.96 uiu/ml (unknown ) (unknown) (no date) (unknown) (unknown) 102 mmol/l (unknown ) (unknown) (no date) (unknown) (unknown) 102 u/l (unknown ) (unknown) (no date) (unknown) (unknown) 105 mg/dl (unknown ) (unknown) (no date) (unknown) (unknown) 105 mg/dl (unknown ) (unknown) (no date) (unknown) (unknown) 110 mg/dl (unknown ) (unknown) (no date) (unknown) (unknown) 110 mg/dl (unknown ) (unknown) (no date) (unknown) (unknown) 140 mmol/l (unknown ) (unknown) (no date) (unknown) (unknown) 168 mg/dl (unknown ) (unknown) (no date) (unknown) (unknown) 168 mg/dl (unknown ) (unknown) (no date) (unknown) (unknown) 19.7 (units unknown) (unknown) (unknown) (no date) (unknown) (unknown) 2.6 g/dl (unknown ) (unknown) (no date) (unknown) (unknown) 25 iu/l (unknown ) (unknown) (no date) (unknown) (unknown) 25 mg/dl (unknown ) (unknown) (no date) (unknown) (unknown) 26 iu/l (unknown ) (unknown) (no date) (unknown) (unknown) 29 mmol/l (unknown ) (unknown) (no date) (unknown) (unknown) 33 mg/dl (unknown ) (unknown) (no date) (unknown) (unknown) 33 mg/dl (unknown ) (unknown) (no date) (unknown) (unknown) 4.4 g/dl (unknown ) (unknown) (no date) (unknown) (unknown) 4.4 mmol/l (unknown ) (unknown) (no date) (unknown) (unknown) 43 mg/dl (unknown ) (unknown) (no date) (unknown) (unknown) 43 mg/dl (unknown ) (unknown) (no date) (unknown) (unknown) 7.0 g/dl (unknown ) (unknown) (no date) (unknown) (unknown) 9.4 mg/dl (unknown ) Social History date description facility 2022-12-26 00:00 Never smoked tobacco (finding) [facility] Vital Signs date measurement value units 2022-12-26 00:00 BMI 27.8 kg/m2 2022-12-26 00:00 BP_diastolic 80 mmHg 2022-12-26 00:00 BP_systolic 130 mmHg 2022-12-26 00:00 heart_rate 52 /min 2022-12-26 00:00 height_metric 182.88 cm 2022-12-26 00:00 height_standard 72 in 2022-12-26 00:00 o2_saturation 98 % 2022-12-26 00:00 temperature_metric 36.17 C 2022-12-26 00:00 temperature_standard 97.1 F 2022-12-26 00:00 weight_metric 92.98 kg 2022-12-26 00:00 weight_standard 204.99 lb
[2023-01-03 15:50] LABS: ALBUMIN 4.1 g/dL (3.2-5.5); ALBUMIN/GLOBULIN RATIO 1.3 (1.0-2.2); BILIRUBIN,TOTAL 1.4 mg/dL (0.2-1.0); CALCIUM 9.3 mg/dL (8.5-10.3); CREATININE 1.3 mg/dL (0.6-1.2); POTASSIUM 3.7 mmol/L (3.5-5.0); TOTAL PROTEIN 7.2 g/dL (6.7-8.2)
== END 2023-01-03 16:10 | disposition left against medical advice (07) ==
LOC: ED 15:13
DX: Z53.21 Procedure and treatment not carried out due to patient leaving prior to being seen by health care provider (principal); R10.9 Unspecified abdominal pain
CPT/HCPCS: 36415; 80053; 83690; 85025

== ENCOUNTER 2023-01-04 04:57 | Emergency (ER) | payer MEDICARE, OTHER ==
[2023-01-04] MEDS ORDERED: SODIUM CHLORIDE 0.9% 1,000 ML IV STA (05:22)
[2023-01-04] MEDS ORDERED: ONDANSETRON 4 MG/2 ML VIAL IVP STA (05:22)
[2023-01-04 06:21] LABS: BASOPHILS % (AUTO) 0.5 %; EOSINOPHILS # (AUTO) 0.1 10^3/uL (0.0-0.7); EOSINOPHILS % (AUTO) 1.1 %; HCT - HEMATOCRIT 42.3 % (42.0-52.0); HGB - HEMOGLOBIN 14.9 g/dL (14.0-18.0); LYMPHOCYTES # (AUTO) 1.6 10^3/uL (1.5-3.5); LYMPHOCYTES % (AUTO) 18.2 %; MEAN CORPUSCULAR HGB CONC 35.2 g/dL (32.0-36.0); MEAN CORPUSCULAR VOLUME 87.9 fL (80.0-94.0); MEAN PLATELET VOLUME 11.1 fL (7.4-11.4); MONOCYTES # (AUTO) 0.6 10^3/uL (0.0-1.0); MONOCYTES % (AUTO) 6.4 %; NEUTROPHILS # (AUTO) 6.4 10^3/uL (1.5-6.6); NEUTROPHILS % (AUTO) 73.5 %; PLT - PLATELET COUNT 169 10^3/uL (130-450); RED BLOOD COUNT 4.81 10^6/uL (4.70-6.10); RED CELL DISTRIBUTION WIDTH 12.3 % (12.0-15.0); WHITE BLOOD COUNT 8.7 x10^3/uL (4.8-10.8)
[2023-01-04 06:35] LABS: ALBUMIN 4.1 g/dL (3.2-5.5); ALBUMIN/GLOBULIN RATIO 1.4 (1.0-2.2); BILIRUBIN,TOTAL 1.5 mg/dL (0.2-1.0); CREATININE 1.2 mg/dL (0.6-1.2); POTASSIUM 3.9 mmol/L (3.5-5.0); TOTAL PROTEIN 7.1 g/dL (6.7-8.2)
--- NOTE | 2023-01-04 06:55 | ED Physician Documentation ---
PD HPI NVD - Stated complaint Stated Complaint: NAUSEA/SOA - Chief complaint Chief Complaint: Abd Pain - History obtained from History obtained from: Patient - Additonal information Additional information: The patient comes to the emergency department chief complaint of nausea and vomiting For the past 3 days. He was placed on duloxetine a couple of weeks ago and then switched to paroxetine about a week ago and he is not sure if the paroxetine is the cause of the nausea and vomiting. He denies diarrhea, chills, fevers, dysuria, or any blood in stool or vomit. He states that the symptoms seem to wax and wane. He is not sure if he should stay on his paroxetine or not. No other complaints at this time. PD PAST MEDICAL HISTORY - Past Medical History Cardiovascular: Hypertension, High cholesterol Respiratory: None Endocrine/Autoimmune: None GI: GERD : None HEENT: None Psych: None Musculoskeletal: None Derm: None - Past Surgical History Past Surgical History: Yes General: Cholecystectomy - Present Medications Home Medications: Ambulatory Orders Medication Instructions Recorded Confirmed Gabapentin 300 mg PO DAILY 10/07/15 12/24/15 HYDROcod/ACETAM 5/325 [Vicodin 1 tab PO QID PRN 10/07/15 12/24/15 5/325] clonazePAM [Klonopin] 5 mg PO DAILY 10/07/15 12/24/15 lisinopriL [Lisinopril] 10 mg PO DAILY 10/07/15 12/24/15 methocarbamoL [Robaxin] 500 mg PO DAILY 10/07/15 12/24/15 Promethazine Supp [Phenergan Supp] 25 mg [place] Q6H PRN #15 supp 12/23/15 12/24/15 Ondansetron Odt [Zofran] 4 mg TL Q6H PRN #10 tablet 12/24/15 Fluticasone [Flonase] 1 sprays EZRA BID #1 bottle 05/20/19 Amox/Clav 875/125 [Augmentin 1 tablet PO Q12H 7 Days #14 tablet 08/03/22 875/125 Tab] Albuterol Sulf [Ventolin Hfa 2 - 3 puffs INH Q4HR PRN #1 each 09/12/22 Inhaler] Benzonatate [Tessalon] 100 mg PO TID PRN #20 cap 09/12/22 Ondansetron Odt [Zofran] 4 mg TL Q6H PRN #10 tablet 09/12/22 cefUROXime axetiL [Ceftin] 250 mg PO Q12H #10 tablet 09/12/22 dexAMETHasone [Decadron] 4 mg PO DAILY #5 tablet 09/12/22 Ondansetron Odt [Zofran] 4 mg TL Q6H PRN #10 tablet 01/04/23 - Allergies Allergies/Adverse Reactions: Allergies Allergy/AdvReac Type Severity Reaction Status Date / Time Penicillins Allergy Rash Verified 01/03/23 15:16 erythromycin base AdvReac Nausea Verified 01/03/23 15:16 [From E-Mycin] - Social History Does the pt smoke?: No Smoking Status: Never smoker Does the pt drink ETOH?: No Does the pt have substance abuse?: No - Immunizations Immunizations are current?: Yes - POLST Patient has POLST: No PD ED PE NORMAL - Vitals Vital signs reviewed: Yes - General General: Alert and oriented X 3, No acute distress, Well developed/nourished - HEENT HEENT: Atraumatic, PERRL, EOMI, Moist mucous membranes - Neck Neck: Supple, no meningeal sign - Cardiac Cardiac: RRR, No murmur - Respiratory Respiratory: No respiratory distress, Clear bilaterally - Abdomen Abdomen: Soft, Non tender, Non distended - Derm Derm: Normal color, Warm and dry, No rash - Extremities Extremities: No deformity - Neuro Neuro: Alert and oriented X 3 - Psych Psych: Normal mood, Normal affect Results - Vitals Vitals: Vital Signs - 24 hr 01/04/23 07:13 Heart Rate 79 Respiratory 16 Rate Blood Pressure 135/77 H O2 Saturation 99 Oxygen O2 Source Room air - Labs Labs: Laboratory Tests 01/04/23 01/04/23 06:03 06:03 WBC 8.7 RBC 4.81 Hgb 14.9 Hct 42.3 MCV 87.9 MCH 31.0 MCHC 35.2 RDW 12.3 Plt Count 169 MPV 11.1 Neut # (Auto) 6.4 Lymph # (Auto) 1.6 [place] # (Auto) 0.6 Eos # (Auto) 0.1 Baso # (Auto) 0.0 Absolute Nucleated RBC 0.00 Nucleated RBC % 0.0 Sodium 140 Potassium 3.9 Chloride 108 Carbon Dioxide 23 Anion Gap 9.0 BUN 24 H Creatinine 1.2 Estimated GFR (MDRD) 60 L Glucose 136 H Calcium 9.0 Total Bilirubin 1.5 H AST 22 ALT 22 Alkaline Phosphatase 79 Total Protein 7.1 Albumin 4.1 Globulin 3.0 Albumin/Globulin Ratio 1.4 Lipase 28 PD Medical Decision Making - ED course Complexity details: reviewed results, re-evaluated patient, considered differential, d/w patient ED course: The patient was treated symptomatically in the emergency department with IV fluids and Zofran. Laboratory studies were unremarkable. I discussed with the patient that I am not sure what is causing the nausea and vomiting. Very well could be a virus, but the patient will need to talk to his doctor about whether he should stay on the paroxetine or not. We have discussed symptomatic management at home and the usual indications for return. Departure - Departure Disposition: 01 Home, Self Care Clinical Impression: Vomiting Qualifiers: Vomiting type: bilious vomiting Nausea presence: with nausea Qualified Code(s): R11.14 - Bilious vomiting Condition: Stable Instructions: ED Nausea Vomiting Prescriptions: Ondansetron Odt [Zofran] 4 mg TL Q6H PRN #10 tablet PRN Reason: Nausea / Vomiting Comments: Your lab work from last night looked great, and your abdomen is fairly benign. Is not clear whether you are vomiting as a side effect of the medication in the event on or if you have just picked up one of the many viruses that are going around right now and causing such symptoms. If the vomiting is from a viral illness, it should blow over on its own within several days. However, if it lasts longer than that, then you should consider the medications you are on. Please make an appoint with your doctor to review your medication list. A prescription for nausea medication has been electronically transmitted to the [facility] pharmacy in [place], your pharmacy of choice on record. Please pick this up today so you can take it if you are feeling nauseated again. We have treated you here with IV fluids and IV nausea medication as well. Please focus on getting clear liquids to drink so you stay hydrated. If you tolerate these without vomiting, then you may progress to simple starches and ultimately to a regular diet as your stomach will allow. Discharge Date/Time: 01/04/23 07:14
[2023-01-04 07:14] VITALS: BP 135/77
== END 2023-01-04 07:14 | disposition home or self-care (01) ==
LOC: ED 04:57
DX: R11.14 Bilious vomiting (principal); I10 Essential (primary) hypertension; E78.00 Pure hypercholesterolemia, unspecified; K21.9 Gastro-esophageal reflux disease without esophagitis; Z79.899 Other long term (current) drug therapy
CPT/HCPCS: 36415; 80053; 83690; 85025; 96374; 99283

== ENCOUNTER 2023-01-05 16:39 | Outpatient (CLI) | payer MEDICARE, OTHER | END 2023-01-05 23:59 | disposition critical access hospital (66) | LOC: EMS 16:39 | DX: R41.0 Disorientation, unspecified (principal); R51.9 Headache, unspecified; R11.0 Nausea | CPT/HCPCS: A0425; A0429 ==

== ENCOUNTER 2023-01-05 16:57 | Emergency (ER) | payer MEDICARE, OTHER ==
[2023-01-05] MEDS ORDERED: SODIUM CHLORIDE 0.9% 1,000 ML IV STA (17:09)
--- NOTE | 2023-01-05 17:10 | ED Physician Documentation ---
History of Present Illness - Stated complaint Stated Complaint: AMS - Additonal information Additional information: 67-year-old male was referred to the emergency department for evaluation of confusion. He has been seen in this ER recently for nausea and vomiting seen most recently last night. There was some concern that he is developing gastritis may be due to recent medication changes where he has initially been started on duloxetine but then transitioned to paroxetine for depression For EMS the patient had a normal blood sugar as well as a negative FAST exam. On presentation to the emergency department right now the patient is alert to [address] He however does not know why 911 was called on be his behalf. On exam he does have some epigastric tenderness, though no guarding or rebound. He is denying melena or hematochezia. 1814: I have spoken to the patient's Maura who reports to me that she called 911 this afternoon when the patient had been complaining of epigastric abdominal pain. He likes to walk when he is uncomfortable so he walked to a neighbor's house but the neighbor thought that he was confused and returned him back home. At home the patient was unable to recognize Maura or even his favorite dog thus prompting the 911 phone call Review of Systems Constitutional: denies: Fever, Chills Cardiac: denies: Chest pain / pressure, Palpitations Respiratory: denies: Dyspnea, Cough GI: reports: Abdominal Pain, Nausea, Vomiting : reports: Reviewed and negative Skin: reports: Reviewed and negative Musculoskeletal: reports: Reviewed and negative Neurologic: reports: Reviewed and negative Psychiatric: reports: Reviewed and negative PD PAST MEDICAL HISTORY - Past Medical History Cardiovascular: Hypertension, High cholesterol Respiratory: None Endocrine/Autoimmune: None GI: GERD : None HEENT: None Psych: None Musculoskeletal: None Derm: None - Past Surgical History Past Surgical History: Yes General: Cholecystectomy - Present Medications Home Medications: Ambulatory Orders Medication Instructions Recorded Confirmed Gabapentin 300 mg PO DAILY 10/07/15 12/24/15 HYDROcod/ACETAM 5/325 [Vicodin 1 tab PO QID PRN 10/07/15 12/24/15 5/325] clonazePAM [Klonopin] 5 mg PO DAILY 10/07/15 12/24/15 lisinopriL [Lisinopril] 10 mg PO DAILY 03/30/16 06/16/16 methocarbamoL [Robaxin] 500 mg PO DAILY 10/07/15 12/24/15 Promethazine Supp [Phenergan Supp] 25 mg [place] Q6H PRN #15 supp 12/23/15 12/24/15 Ondansetron Odt [Zofran] 4 mg TL Q6H PRN #10 tablet 12/24/15 Fluticasone [Flonase] 1 sprays EZRA BID #1 bottle 05/20/19 Amox/Clav 875/125 [Augmentin 1 tablet PO Q12H 7 Days #14 tablet 08/03/22 875/125 Tab] Albuterol Sulf [Ventolin Hfa 2 - 3 puffs INH Q4HR PRN #1 each 09/12/22 Inhaler] Benzonatate [Tessalon] 100 mg PO TID PRN #20 cap 09/12/22 Ondansetron Odt [Zofran] 4 mg TL Q6H PRN #10 tablet 09/12/22 cefUROXime axetiL [Ceftin] 250 mg PO Q12H #10 tablet 09/12/22 dexAMETHasone [Decadron] 4 mg PO DAILY #5 tablet 09/12/22 Ondansetron Odt [Zofran] 4 mg TL Q6H PRN #10 tablet 01/04/23 Pantoprazole [Protonix] 40 mg PO DAILY #30 tablet 01/05/23 - Allergies Allergies/Adverse Reactions: Allergies Allergy/AdvReac Type Severity Reaction Status Date / Time Penicillins Allergy Rash Verified 01/03/23 15:16 erythromycin base AdvReac Nausea Verified 01/03/23 15:16 [From E-Mycin] - Social History Does the pt smoke?: No Smoking Status: Never smoker Does the pt drink ETOH?: No Does the pt have substance abuse?: No - Immunizations Immunizations are current?: Yes - POLST Patient has POLST: No PD ED PE NORMAL - General General: Alert and oriented X 3, No acute distress - HEENT HEENT: Atraumatic - Cardiac Cardiac: RRR, No murmur - Respiratory Respiratory: No respiratory distress, Clear bilaterally - Abdomen Abdomen: Normal bowel sounds, Soft. No: Non tender (epigastric tenderness) Results - Vitals Vitals: Vital Signs - 24 hr 01/05/23 01/05/23 17:08 18:37 Temperature 36.9 C Heart Rate 60 64 Respiratory 13 16 Rate Blood Pressure 129/73 139/88 H O2 Saturation 99 99 Oxygen O2 Source Room air - Labs Labs: Laboratory Tests 01/05/23 01/05/23 01/05/23 17:22 17:22 17:22 WBC 7.3 RBC 4.54 L Hgb 14.1 Hct 39.8 L MCV 87.7 MCH 31.1 H MCHC 35.4 RDW 12.4 Plt Count 156 MPV 11.1 Neut # (Auto) 4.0 Lymph # (Auto) 2.5 Harmon # (Auto) 0.6 Eos # (Auto) 0.2 Baso # (Auto) 0.0 Absolute Nucleated RBC 0.00 Nucleated RBC % 0.0 Sodium 139 Potassium 3.6 Chloride 108 Carbon Dioxide 25 Anion Gap 6.0 BUN 20 Creatinine 1.4 H Estimated GFR (MDRD) 51 L Glucose 109 H Calcium 9.0 Total Bilirubin 1.0 AST 21 ALT 21 Alkaline Phosphatase 76 Total Protein 6.9 Albumin 4.1 Globulin 2.8 Albumin/Globulin Ratio 1.5 Lipase 28 Urine Color Urine Clarity Urine pH Ur Specific Tuttle Urine Protein Urine Glucose (UA) Urine Ketones Urine Occult Blood Urine Nitrite Urine Bilirubin Urine Urobilinogen Ur Leukocyte Esterase Ur Microscopic Review Urine Culture Comments Urine Opiates Screen Ur Oxycodone Screen Urine Methadone Screen Ur Propoxyphene Screen Ur Barbiturates Screen Ur Tricyclics Screen Ur Phencyclidine Scrn Ur Amphetamine Screen U Methamphetamines Scrn U Benzodiazepines Scrn Urine Cocaine Screen U Cannabinoids Screen Ethyl Alcohol < 5.0 01/05/23 01/05/23 17:31 17:31 WBC RBC Hgb Hct MCV MCH MCHC RDW Plt Count MPV Neut # (Auto) Lymph # (Auto) Harmon # (Auto) Eos # (Auto) Baso # (Auto) Absolute Nucleated RBC Nucleated RBC % Sodium Potassium Chloride Carbon Dioxide Anion Gap BUN Creatinine Estimated GFR (MDRD) Glucose Calcium Total Bilirubin AST ALT Alkaline Phosphatase Total Protein Albumin Globulin Albumin/Globulin Ratio Lipase Urine Color DARK YELLOW Urine Clarity CLEAR Urine pH 5.5 Ur Specific Tuttle >=1.030 H Urine Protein NEGATIVE Urine Glucose (UA) NEGATIVE Urine Ketones NEGATIVE Urine Occult Blood NEGATIVE Urine Nitrite NEGATIVE Urine Bilirubin NEGATIVE Urine Urobilinogen 1 (NORMAL) Ur Leukocyte Esterase NEGATIVE Ur Microscopic Review NOT INDICATED Urine Culture Comments NOT INDICATED Urine Opiates Screen NEGATIVE Ur Oxycodone Screen NEGATIVE Urine Methadone Screen NEGATIVE Ur Propoxyphene Screen NEGATIVE Ur Barbiturates Screen NEGATIVE Ur Tricyclics Screen NEGATIVE Ur Phencyclidine Scrn NEGATIVE Ur Amphetamine Screen NEGATIVE U Methamphetamines Scrn NEGATIVE U Benzodiazepines Scrn NEGATIVE Urine Cocaine Screen NEGATIVE U Cannabinoids Screen NEGATIVE Ethyl Alcohol - Rads (name of study) Ct head Relevant Findings:: Final report received (This does notNo acute intracranial abnormality. Incidentally noted 1.1 cm mass in the left lateral ventricle. Appear to be acutely causing mass effect. Consider further evaluation with MRI.) Ct abd Relevant Findings:: Final report received (no acute abdominal pelvic abnormality. Diverticula) PD Medical Decision Making - ED course Complexity details: reviewed results, re-evaluated patient, considered differential, d/w patient, d/w family ED course: 67-year-old male was brought to the emergency department for evaluation of acute confusion. Seen recently in this emergency department over the last 2 days for upper abdominal pain thought to be gastritis that may have been secondary to recent medication administration for anxiety/depression. While at home today his reported he was having recurrent episodes of upper abdominal pain and was getting anxious. He walked to a neighbor's house where the neighbor found that he was confused and walked him back home. At home he did not recognize his or dog. Thus EMS was summoned. His fast exam was negative. On presentation to the emergency department the patient was oriented to himself and place but did not understand why he had been transported here. He was nonfocal. I did obtain a CBC, electrolytes UA and urine drug screen. Per my interpretation no acute worrisome abnormalities are seen. Given the recurrent complaint of abdominal pain a CT of the abdomen was completed to evaluate for acute process such as bowel obstruction, acute appendicitis or perforation. The CT did not show any acute surgical findings though diverticula were noted. Subsequently a CT of the head was completed that showed no acute findings though there was a 1.1 cm right ventricular mass. On reevaluation the patient is now completely alert, well-appearing and oriented. I did offer the patient admission to the hospital for MRI imaging in the a.m. but at this time he declines it and prefers to be discharged home. I did discuss with the patient that the etiology is acute acute confusion was not clear. It could be amaurosis fugax or even a TIA but again he declines to be admitted to the hospital for further evaluation of this. I had administered the patient a single dose of IV Protonix for the history and concern of gastritis and on reevaluation his he is nearly pain-free in the upper abdomen and is now tolerating simple foods and liquids. He is advised close follow-up with his primary care provider for referral for an MRI, possible referral to neurology or neurosurgery based on the mass finding results as well as referral to GI for an EGD. Usual emergent return precautions were discussed Departure - Departure Disposition: Home, Self Care Clinical Impression: Acute confusion, Brain mass Gastritis Qualifiers: Gastritis type: unspecified gastritis Chronicity: acute Gastritis bleeding: without bleeding Qualified Code(s): K29.00 - Acute gastritis without bleeding Condition: Serious Record reviewed to determine appropriate education?: Yes Prescriptions: Pantoprazole [Protonix] 40 mg PO DAILY #30 tablet Comments: Santhosh you are seen today in the emergency department because while at home you became acutely confused. You did not recognize your or your dog. When you arrived to the emergency department you are still somewhat confused but after just a little bit of time you have woken up normally. You have been seen in the last few days in the emergency department for stomach upset/gastritis. We did obtain labs today that did not show any worrisome findings. While here in the emergency department I did give you a dose of m edication called Protonix which is an acid alfalfa dehydrator operator. You are reporting that your stomach pain is better and you are now able to eat and drink well. I have sent a prescription for Protonix to the pharmacy and encourage you to take this each day in the morning. Over the next several days eat simple foods such as bananas, rice applesauce and toast. The CT of your abdomen did not show any worrisome findings. Please discuss these ED visits with your primary care doctor. You may benefit from referral for an EGD or upper endoscopy. The CT of your brain did show an incidental right ventricular mass. This is likely a benign growth, meaning that its not likely cancer. It also is not likely contributing to your confusion. However it is recommended that you have this evaluated as an outpatient with an MRI. Your primary care provider may at that point make a recommendation for you to be recert referred to neurosurgery. NIHSS - Time Time: 17:05 - Level of Consciousness Level of consciousness: (0) Alert, Keenly responsive LOC Questions: (0) Answers both Q's correct LOC Commands: (0) Performs both correctly - Gaze Best Gaze: (0) Normal - Visual Visual: (0) No loss - Facial Palsy Facial Palsy: (0) Normal, symmetrical movement - Motor Arms (both separate) Motor Arm (right): (0) No drift Motor Arm (left): (0) No drift - Motor Legs (both separate) Motor Leg (right): (0) No drift Motor Leg (left): (0) No drift - Limb Ataxia Limb Ataxia: (0) Absent - Sensory Sensory: (0) Normal - Best Language Best Language: (0) No aphasia - Dysarthria Dysarthria: (0) Normal - Extinction and Inattention (formally neg Extinction and inattention: (0) No abnormality - Total Score/Results Total Score/Result: 0
[2023-01-05] MEDS ORDERED: PANTOPRAZOLE 40 MG VIAL IVP STA (17:16)
[2023-01-05 17:26] LABS: BASOPHILS % (AUTO) 0.5 %; EOSINOPHILS # (AUTO) 0.2 10^3/uL (0.0-0.7); EOSINOPHILS % (AUTO) 2.7 %; HCT - HEMATOCRIT 39.8 % (42.0-52.0); HGB - HEMOGLOBIN 14.1 g/dL (14.0-18.0); LYMPHOCYTES # (AUTO) 2.5 10^3/uL (1.5-3.5); LYMPHOCYTES % (AUTO) 33.9 %; MEAN CORPUSCULAR HEMOGLOBIN 31.1 pg (27.0-31.0); MEAN CORPUSCULAR HGB CONC 35.4 g/dL (32.0-36.0); MEAN CORPUSCULAR VOLUME 87.7 fL (80.0-94.0); MEAN PLATELET VOLUME 11.1 fL (7.4-11.4); MONOCYTES # (AUTO) 0.6 10^3/uL (0.0-1.0); MONOCYTES % (AUTO) 8.5 %; NEUTROPHILS % (AUTO) 54.1 %; PLT - PLATELET COUNT 156 10^3/uL (130-450); RED BLOOD COUNT 4.54 10^6/uL (4.70-6.10); RED CELL DISTRIBUTION WIDTH 12.4 % (12.0-15.0); WHITE BLOOD COUNT 7.3 x10^3/uL (4.8-10.8)
--- OUTSIDE RECORDS SUMMARY | 2023-01-05 17:27 | EXTERNAL MEDICAL SUMMARY RPT | Continuity of Care Document ---
Author Name Unknown Address [address] [place] [address] Phone Organization [facility] Address [address] [place] [address] Phone Care Team Providers Care Channel Business Manager Name Role Phone Dustin Barrientos Unavailable Unavailable Medications date description facility 2022-12-26 00:00 [facility] 2022-12-14 00:00 Celecoxib [facility]26 [facility]:00 [facility] Problems date description facility 2022-12-26 00:00 Encounter for annual physical e [facility] Results/Labs test date author facility value unit interpretation Result panel 1 (unknown) (no date) (unknown) (unknown) (no value) (units unknown) (unknown) (unknown) (no date) (unknown) (unknown) 12/26/22 (units unknown) (unknown) (unknown) (no date) (unknown) (unknown) [id number] (units unknown) (unknown) (unknown) (no date) (unknown) (unknown) 67 year old leann villavicencio presents to clinic for annual medicare wellness exam. 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 (units unknown) (unknown) (unknown) (no date) (unknown) (unknown) Documented By: Toan Bryant MD 12/26/22 [id number] (units unknown) (unknown) (unknown) (no date) (unknown) [...] colleagues , with an educational michele from [employer] 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 (units unknown) (unknown) (unknown) (no date) [...] unknown) (unknown) (unknown) (no date) (unknown) (unknown) [id number] (units unknown) (unknown) (unknown) (no date) (unknown) [...] when discussing his brother who related to [place], limited eye (units unknown) (unknown) (unknown) (no date) (unknown) (unknown) Allergies (units unknown) (unknown) (unknown) (no date) (unknown) (unknown) Also with significant lower back pain presumptively related to a combination of (units unknown) (unknown) (unknown) (no date) (unknown) (unknown) [place] [address] (units unknown) (unknown) (unknown) (no date) (unknown) [...] (unknown) (no date) (unknown) (unknown) : 5 Acct:[id number] (units unknown) (unknown) (unknown) (no date) (unknown) [...] unknown) (unknown) (unknown) (no date) (unknown) (unknown) [place]. (units unknown) (unknown) (unknown) (no date) (unknown) [...] colleagues , with an educational michele from [employer] 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.] (unknown) (no date) (unknown) (unknown) : 5 Acct:[id number] (units unknown) (unknown) (unknown) (no date) (unknown) [...] (unknown) I am hopeful t hat his [place] physician will be able to assist him [...] unknown) (unknown) (unknown) (no date) (unknown) (unknown) [place]. 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 (units unknown) (unknown) (unknown) (no date) [...] to be sent to preferred pharmacy at [facility] in (units unknown) (unknown) Result panel 6 (unknown) (no date) (unknown) (unknown) 6.0 % [id number] (unknown) (no date) (unknown) (unknown) 6.0 % (unknown ) Result panel 7 (unknown) (no date) (unknown) [...] panel 8 (unknown) (no date) (unknown) (unknown) >=1.030 (units [...] (unknown) YELLOW (units unknown) (unknown) Result panel 9 (unknown) (no date) (unknown) [...] panel 10 (unknown) (no date) (unknown) (unknown) > 60 [...] (unknown) 9.4 mg/dl (unknown ) Result panel 11 (unknown) (no date) (unknown) (unknown) 0 /ul [...] (unknown) 89.5 fl (unknown ) Result panel 12 (unknown) (no date) (unknown) (unknown) > 60 [...] (unknown) 9.4 mg/dl (unknown ) Result panel 13 (unknown) (no date) (unknown) (unknown) 6.0 % (unknown ) (unknown) (no date) (unknown) (unknown) 6.0 % (unknown ) Social History date description facility 2022-12-26 00:00 Never smoked tobacco (finding) [facility] Vital Signs date measurement value units [...]
[2023-01-05 17:36] LABS: MUDS CUTOFF CONCENTRATIONS CUTOFF CONC BELOW:
[2023-01-05 17:37] LABS: BILIRUBIN,URINE NEGATIVE (NEGATIVE); CLARITY,URINE CLEAR (CLEAR); GLUCOSE, URINE (UA) NEGATIVE (NEGATIVE); KETONES,URINE (UA) NEGATIVE (NEGATIVE); LEUKOCYTE ESTERASE, URINE NEGATIVE (NEGATIVE); NITRITE,URINE NEGATIVE (NEGATIVE); OCCULT BLOOD,URINE NEGATIVE (NEGATIVE); PH,URINE 5.5 PH (5.0-7.5); PROTEIN,URINE NEGATIVE (NEGATIVE); UROBILINOGEN,URINE 1 (NORMAL) E.U./dL (NORMAL)
[2023-01-05 17:39] LABS: ALBUMIN 4.1 g/dL (3.2-5.5); ALBUMIN/GLOBULIN RATIO 1.5 (1.0-2.2); CREATININE 1.4 mg/dL (0.6-1.2); POTASSIUM 3.6 mmol/L (3.5-5.0); TOTAL PROTEIN 6.9 g/dL (6.7-8.2)
[2023-01-05] MEDS ORDERED: iohexoL-300 100 ML VIAL ONE (17:42)
[2023-01-05 17:48] LABS: AMPHETAMINE SCREEN,URINE NEGATIVE (NEGATIVE); BARBITURATE SCREEN,UR NEGATIVE (NEGATIVE); BENZODIAZEPINES SCREEN, URINE NEGATIVE (NEGATIVE); COCAINE SCREEN URINE NEGATIVE (NEGATIVE); METHADONE SCREEN, URINE NEGATIVE (NEGATIVE); METHAMPHETAMINES SCREEN, URINE NEGATIVE (NEGATIVE); OPIATE SCREEN, URINE NEGATIVE (NEGATIVE); OXYCODONE SCREEN, URINE NEGATIVE (NEGATIVE); PROPOXYPHENE SCREEN, URINE NEGATIVE (NEGATIVE); THC CANNABINOID SCREEN, URINE NEGATIVE (NEGATIVE); TRICYCLIC ANTIDEPRESSANT,URINE NEGATIVE (NEGATIVE)
--- NOTE | 2023-01-05 18:24 | CT Report ---
PROCEDURE: HEAD WO INDICATIONS: acute confusion TECHNIQUE: Noncontrast 4.5 mm thick angled axial sections acquired from the foramen magnum to the vertex. For r adiation dose reduction, the following was used: automated exposure control, adjustment of mA and/or kV according to patient size. COMPARISON: None. FINDINGS: Image quality: Good CSF spaces: Basal cisterns are patent. Lateral ventricles are symmetric. Volume: There is mild volume loss. Brain: A mass in the left lateral ventricle measures up to 1.1 cm. No gross loss of arellano-white differentiation or acute hemorrhage identified. Craniofacial structures: No displaced fracture. Sinuses are clear. Orbits are intact. IMPRESSION: No acute intracranial abnormality. Incidentally noted 1.1 cm mass in the left lateral ventricle. This does not appear to be acutely caus ing mass effect. Consider further evaluation with MRI. Reviewed by: Apollo Regalado MD on 01/05/2023 6:22 PM PDT Approved by: Apollo Regalado MD on 01/05/2023 6:22 PM PDT Station ID: [id number]
--- NOTE | 2023-01-05 18:28 | CT Report ---
PROCEDURE: ABDOMEN/PELVIS W INDICATIONS: n/v/d CONTRAST: 100mL Omni 300 TECHNIQUE: After the administration of IV contrast, 5 mm thick sections acquired from the diaphragms to the symp hysis. 5 mm thick coronal and sagittal reformats were acquired. For radiation dose reduction, the f ollowing was used: automated exposure control, adjustment of mA and/or kV according to patient size. COMPARISON: 05/31/2013 FINDINGS: Image quality: Good Lower chest: Scattered scarring/atelectasis. Solid organs: There is pneumobilia. CBD is within normal limits postcholecystectomy. No pathologic pa ncreatic ductal dilation. There are duodenal diverticulum adjacent to the ampulla. No splenomegaly. N o adrenal nodules. No hydronephrosis. No suspicious solid renal masses. Vessels and lymph nodes: Main portal vein is patent. Atherosclerotic calcifications without aortic an eurysm. Bowel and peritoneum: No evidence of small bowel obstruction, abscess, or pathologic ascites. Colonic diverticula are present, without convincing acute inflammatory changes. Mild wall thickening of the sigmoid colon is favored to be chronic, correlate with age-appropriate colonoscopy results. Normal ap pendix. Body wall: Unremarkable. Small fat-containing inguinal hernias are suspected. Pelvis: Prostate is not well evaluated on CT. Bladder is underdistended also not well evaluated. Bones: Degenerative changes. No acute or suspicious osseous finding. IMPRESSION: No acute abdominopelvic abnormality. Other incidental and favored nonacute findings are above. Reviewed by: Apollo Regalado MD on 01/05/2023 6:27 PM PDT Approved by: Apollo Regalado MD on 01/05/2023 6:27 PM PDT Station ID: [id number]
[2023-01-05 18:43] VITALS: BP 139/88
[2023-01-05] MEDS ORDERED: iohexoL-300 100 ML VIAL IVP ONE (19:52)
== END 2023-01-05 19:14 | disposition home or self-care (01) ==
LOC: EDUNIT# → ED 16:57
DX: K29.00 Acute gastritis without bleeding (principal); R22.0 Localized swelling, mass and lump, head; G93.89 Other specified disorders of brain; I10 Essential (primary) hypertension
CPT/HCPCS: 36415; 70450; 74177; 80053; 80306; 81003; 83690; 85025; 96361; 96374; 99284; G0480; Q9967; 80320; 81001; 87086

== ENCOUNTER 2024-03-28 06:38 | Emergency (ER) | payer MEDICARE, OTHER ==
[2024-03-28 07:18] LABS: ALBUMIN 4.4 g/dL (3.2-5.5); ALBUMIN/GLOBULIN RATIO 1.8 (1.0-2.2); CALCIUM 9.5 mg/dL (8.5-10.3); CREATININE 1.3 mg/dL (0.6-1.3); POTASSIUM 4.1 mmol/L (3.5-4.5); TOTAL PROTEIN 6.8 g/dL (6.4-8.9)
[2024-03-28 07:23] LABS: TROPONIN I HIGH SENSITIVITY 5.3 ng/L (2.3-19.7)
[2024-03-28 07:32] LABS: BASOPHILS % (AUTO) 0.4 %; EOSINOPHILS # (AUTO) 0.1 10^3/uL (0.0-0.7); EOSINOPHILS % (AUTO) 0.8 %; HGB - HEMOGLOBIN 15.4 g/dL (14.0-18.0); LYMPHOCYTES # (AUTO) 1.3 10^3/uL (1.5-3.5); LYMPHOCYTES % (AUTO) 12.9 %; MEAN CORPUSCULAR HEMOGLOBIN 31.7 pg (27.0-31.0); MEAN CORPUSCULAR HGB CONC 35.8 g/dL (32.0-36.0); MEAN CORPUSCULAR VOLUME 88.5 fL (80.0-94.0); MEAN PLATELET VOLUME 11.5 fL (7.4-11.4); MONOCYTES # (AUTO) 0.7 10^3/uL (0.0-1.0); NEUTROPHILS # (AUTO) 7.8 10^3/uL (1.5-6.6); NEUTROPHILS % (AUTO) 77.5 %; PLT - PLATELET COUNT 150 10^3/uL (130-450); RED BLOOD COUNT 4.86 10^6/uL (4.70-6.10); WHITE BLOOD COUNT 10.1 x10^3/uL (4.8-10.8)
[2024-03-28] MEDS: KETOROLAC 30 MG/ML VIAL IVP STA (08:26)
[2024-03-28] MEDS: SODIUM CHLORIDE 0.9% 1,000 ML IV STA (08:26)
[2024-03-28] MEDS: ACETAMINOPHEN 1,000 MG/100 ML 1,000 MG/100 ML BAG IV ONE (08:26)
[2024-03-28] MEDS: ONDANSETRON 4 MG/2 ML VIAL IVP STA (08:26)
--- NOTE | 2024-03-28 08:26 | ED Physician Documentation ---
History of Present Illness - Stated complaint Stated Complaint: CHEST PX,NAUSEA - Chief complaint Chief Complaint: Cardiac - History obtained from History obtained from: Patient - Additonal information Additional information: The patient comes to the emergency department chief complaint of bodyaches after receiving vaccinations for COVID, RSV, and influenza yesterday morning. He states that he woke up in the night with aches all over his body and also became nauseated. He states he has had a little bit of a cough but denies any specific chest symptoms otherwise. He has a history of diabetes, hypertension, and hyperlipidemia. He is not currently on insulin but just "monitors" his sugars. He states he thinks they are in the 100s somewhere most of the time. The patient denies any fevers or chills. He denies any dysuria. No diarrhea. He is mostly just had dry heaves though he did vomit a couple times his says. She states that this seems like the way that he has been previously when he has been "severely dehydrated". However, the patient's symptoms just started in the night and he states that he was feeling more or less normal when he went to bed last night. He does admit to not drinking very much water. No alcohol. 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 No other complaints at this time. PD PAST MEDICAL HISTORY - Past Medical History Past Medical History: Yes Cardiovascular: Hypertension, High cholesterol Respiratory: None Endocrine/Autoimmune: None GI: GERD : None HEENT: None Psych: None Musculoskeletal: None Derm: None - Past Surgical History Past Surgical History: Yes General: Cholecystectomy - Present Medications Home Medications: Ambulatory Orders Medication Instructions Recorded Confirmed Gabapentin 300 mg PO DAILY 10/07/15 12/24/15 HYDROcod/ACETAM 5/325 [Vicodin 1 tab PO QID PRN 10/07/15 12/24/15 5/325] clonazePAM [Klonopin] 5 mg PO DAILY 10/07/15 12/24/15 lisinopriL [Lisinopril] 10 mg PO DAILY 10/07/15 12/24/15 methocarbamoL [Robaxin] 500 mg PO DAILY 10/07/15 12/24/15 Promethazine Supp [Phenergan Supp] 25 mg AL Q6H PRN #15 supp 12/23/15 12/24/15 Ondansetron Odt [Zofran] 4 mg TL Q6H PRN #10 tablet 12/24/15 Fluticasone [Flonase] 1 sprays EZRA BID #1 bottle 05/20/19 Amox/Clav 875/125 [Augmentin 1 tablet PO Q12H 7 Days #14 tablet 08/03/22 875/125 Tab] Albuterol Sulf [Ventolin Hfa 2 - 3 puffs INH Q4HR PRN #1 each 09/12/22 Inhaler] Benzonatate [Tessalon] 100 mg PO TID PRN #20 cap 09/12/22 Ondansetron Odt [Zofran] 4 mg TL Q6H PRN #10 tablet 09/12/22 cefuroxime axetiL [Ceftin] 250 mg PO Q12H #10 tablet 09/12/22 dexAMETHasone [Decadron] 4 mg PO DAILY #5 tablet 09/12/22 Ondansetron Odt [Zofran] 4 mg TL Q6H PRN #10 tablet 01/04/23 Pantoprazole [Protonix] 40 mg PO DAILY #30 tablet 01/05/23 - Allergies Allergies/Adverse Reactions: Allergies Allergy/AdvReac Type Severity Reaction Status Date / Time Penicillins Allergy Rash Verified 03/28/24 06:49 erythromycin base AdvReac Nausea Verified 03/28/24 06:49 [From E-Mycin] - Social History Does the pt smoke?: No Smoking Status: Never smoker Does the pt drink ETOH?: No Does the pt have substance abuse?: No - Immunizations Immunizations are current?: Yes - POLST Patient has POLST: No PD ED PE NORMAL - Vitals Vital signs reviewed: Yes - General General: No acute distress, Well developed/nourished, Other (Awake, but no distr ess. Speaks in a diminished voice with eyes closed most of the time.) - HEENT HEENT: Atraumatic, EOMI, Moist mucous membranes - Neck Neck: Supple, no meningeal sign - Cardiac Cardiac: RRR, No murmur, Strong equal pulses - Respiratory Respiratory: No respiratory distress, Clear bilaterally - Abdomen Abdomen: Soft, Non tender, Non distended - Derm Derm: Normal color, Warm and dry, No rash - Extremities Extremities: No deformity, No edema - Neuro Neuro: Other (Awake and appropriate as far as answers. No gross deficits focally.) - Psych Psych: Normal mood, Normal affect Results - Vitals Vitals: Vital Signs - 24 hr 03/28/24 03/28/24 06:49 09:30 Temperature 37.0 C 37.0 C Heart Rate 89 64 Respiratory 16 18 Rate Blood Pressure 140/82 H 140/82 H O2 Saturation 99 97 Oxygen O2 Source Room air - Labs Labs: Laboratory Tests 03/28/24 03/28/24 06:53 06:53 WBC 10.1 RBC 4.86 Hgb 15.4 Hct 43.0 MCV 88.5 MCH 31.7 H MCHC 35.8 RDW 13.0 Plt Count 150 MPV 11.5 H Neut # (Auto) 7.8 H Lymph # (Auto) 1.3 L [place] # (Auto) 0.7 Eos # (Auto) 0.1 Baso # (Auto) 0.0 Absolute Nucleated RBC 0.00 Nucleated RBC % 0.0 Sodium 135 Potassium 4.1 Chloride 104 Carbon Dioxide 22 Anion Gap 9.0 BUN 22 H Creatinine 1.3 Estimated GFR (MDRD) 55 L Glucose 134 H Calcium 9.5 Total Bilirubin 1.0 AST 18 ALT 17 Alkaline Phosphatase 93 Troponin I High Sens 5.3 Total Protein 6.8 Albumin 4.4 Globulin 2.4 Albumin/Globulin Ratio 1.8 Lipase 18 - Rads (name of study) head CT Relevant Findings:: Final report received, See rad report (1 cm soft tissue mass in the left lateral ventricle. No acute findings.) Chest x-ray Relevant Findings:: Final report received, See rad report (No acute findings) PD Medical Decision Making - ED course Complexity details: reviewed old records, reviewed results, re-evaluated patient, considered differential, d/w patient, d/w family ED course: The patient was treated with IV fluids, Zofran, Toradol, and Tylenol. He was feeling little better but still had a headache so he was given half milligram of Dilaudid after which he felt much better. Laboratory studies showed a normal white blood cell count, As well as normal hemoglobin and platelets. The patient had normal creatinine but BUN of 22. His blood glucose was 134. Chest x-ray is negative. CT showed a 1 cm soft tissue mass in his left lateral ventricle which did not appear to be causing any acute issues. I felt the patient was stable for discharge home. I have advised him to follow-up with his primary doctor as planned tomorrow. We have discussed the usual indications for return. Departure - Departure Disposition: 01 Home, Self Care Clinical Impression: Myalgia after COVID-19 vaccination, Dehydration Headache Qualifiers: Headache type: unspecified Headache chronicity pattern: acute headache Intractability: not intractable Qualified Code(s): R51.9 - Headache, unspecified Vaccination reaction Qualifiers: Encounter type: initial encounter Qualified Code(s): T50.Z95A - Adverse effect of other vaccines and biological substances, initial encounter Condition: Stable Instructions: ED Dehydration, ED Cephalgia Unspecified Comments: Your labs all look quite good, actually. Your white blood cell count is normal and your blood sugar is 134. Your kidney labs show some signs of dehydration but not severe. Your cardiac enzymes also look good. Your head CT shows a 1 cm soft tissue mass which it sounds like you have already been aware of. I am not sure how that size compares to previous studies, but this does not appear to be causing any acute issues. Most likely, your symptoms are due to the effects of the vaccines. Is not unusual for vaccine to cause a "mini" syndrome similar to what you would experience if he got the actual infection. Given that you received vaccines for COVID, influenza, and RSV, it is not surprising that you are having some symptoms. Although you are uncomfortable, however, the symptoms are not serious and certainly are not life-threatening. You should be feeling better in a couple days. You may take ibuprofen and Tylenol as needed for discomfort. You should drink 8 to 10 cups of water every day. If you are feeling up to it, you should [facility] Forms: PCP List
--- NOTE | 2024-03-28 08:45 | XRAY Report ---
PROCEDURE: Chest 1V INDICATIONS: Chest pain TECHNIQUE: One view of the chest was acquired. COMPARISON: 09/12/2022. FINDINGS: Surgical changes and devices: None. Lungs and pleura: No pleural effusions or pneumothorax. Lungs are clear. Mediastinum: Mediastinal contours appear normal. Top normal heart sounds. Bones and chest wall: No suspicious bony lesions. Overlying soft tissues appear unremarkable. IMPRESSION: No acute cardiopulmonary process. Findings are concordant with preliminary interpretation provided by [facility]. Reviewed by: Don Moser MD on 03/28/2024 8:44 AM PDT Approved by: Don Moser MD on 03/28/2024 8:44 AM PDT Station ID: [id number]
--- NOTE | 2024-03-28 09:25 | CT Report ---
PROCEDURE: Head WO INDICATIONS: Acute altered mental status. TECHNIQUE: Noncontrast 4.5 mm thick angled axial sections acquired from the foramen magnum to the vertex. For r adiation dose reduction, the following was used: automated exposure control, adjustment of mA and/or kV according to patient size. COMPARISON: None. FINDINGS: Image quality: Excellent. CSF spaces: Basal cisterns are patent. No extra-axial fluid collections. Ventricles are normal in size and shape. Brain: 1.1 cm soft tissue density mass in the left lateral ventricle. No midline shift. No intracra nial hemorrhage. [place]-white matter interface is normal. Skull and face: Calvarium and visualized facial bones are intact, without suspicious lesions. Sinuses: Visualized sinuses and mastoids are clear. IMPRESSION: No acute intracranial pathology. 1.1 cm soft tissue density mass in the left lateral ventricle. Recommend nonemergent MRI of the brain with and without contrast for additional characterization. Reviewed by: Zuleyma Vasquez MD, PhD on 03/28/2024 9:23 AM PDT Approved by: Zuleyma Vasquez MD, PhD on 03/28/2024 9:23 AM PDT Station ID: [id number]
[2024-03-28] MEDS ORDERED: HYDROmorphone 1 MG/ML CARPUJECT IVP STA (09:38)
[2024-03-28] MEDS: HYDROmorphone 0.5 MG/0.5 ML SYRINGE IVP STA (10:01)
[2024-03-28 10:41] VITALS: BP 107/67; O2SAT 96
== END 2024-03-28 10:32 | disposition home or self-care (01) ==
LOC: ED 06:38
DX: M79.10 Myalgia, unspecified site (principal); E86.0 Dehydration; R51.9 Headache, unspecified; T50.B95A Adverse effect of other viral vaccines, initial encounter; I10 Essential (primary) hypertension; E78.00 Pure hypercholesterolemia, unspecified; Z79.899 Other long term (current) drug therapy
CPT/HCPCS: 36415; 70450; 71045; 80053; 83690; 84484; 85025; 93005; 96361; 96365; 96375; 99284; 99285; J0131; J1170